=== PATIENT | female | born 1955 | race Caucasian/White ===

== ENCOUNTER 2020-02-17 13:46 | Outpatient (REF) | payer MEDICAID, SELFPAY ==
--- NOTE | 2020-02-17 16:38 | MHC.AU.MED ---
Medical Clearance for Hearing Instrumentation Date: 02/17/20 Patient Name: Lizett Sapp Date of : 1955 Dear Tam Griggs MD , We have seen your patient on 02/17/20 and have determined that they are a candidate for amplification (See accompanying report). Specifically, they would benefit from: Hearing aid use in both ears There is a statute that addresses Medical Evaluation Requirements prior to fitting a patient with a hearing aid. According to [place] statute 265 CMR:6.03(1), (a) General. Except as provided in 265 CMR 6.03(1)(b), a fire extinguisher installer shall not sell a hearing aid unless the prospective user has presented to the fire extinguisher installer a written statement signed by a licensed physician that states that the patient's hearing loss has been medically evaluated and the patient may be considered a candidate for a hearing aid. The medical evaluation must have taken place within the preceding six months. Please note: Due to the [place] Statute referenced above, we cannot accept a signature other than that of a licensed physician. [employer] and PA signatures cannot be accepted. I am in agreement with the above recommendation. There is no medical contraindication for hearing instrumentation. Physician Signature Date Physician Name (Printed)
--- NOTE | 2020-02-17 16:39 | MHC.AU.P13 ---
Adult Audiological Evaluation Date of Visit: 02/17/20 Reason for Appointment: Decreased hearing. She notes that she doesn't hear well and has to turn the volume on her TV and telephone up high. Does patient feel they have a hearing loss?: Yes If Yes, Which Ear?: Both Ears When Was Hearing Difficulty First Noticed?: Many years ago Has hearing been tested previously?: Yes Previous Hearing Test Results: Patient notes that she had her hearing tested many years ago and was diagnosed with a hearing loss. Hearing Handicap Inventory HHIE SCORE: 18 Based on HHIE score, patient has: Mild to moderate perceived hearing handicap Ear History: Recent Ear Pain: Both Ears Bothersome Tinnitus/Ringing/Noises in Ears: Both Ears Medical History: Medical History:Dizziness or Unsteadiness, High Blood Pressure, Vascular Problems Medical History: Patient notes that she has been having significant irritation, itching, and pain in both ears. Carpel tunnel, arthritis Allergies: Penicillin, Lobster Otoscopy: Right Ear: White debris and irritation of canal, possible otitis externa Left Ear: White debris and irritation of canal, possible otitis externa Tympanometry: Right Ear: Normal Middle Ear System (Type A) Left Ear: Normal Middle Ear System (Type A) Hearing Evaluation: Transducer(s) Used: Insert Earphones, Bone Conduction Method: Conventional Audiometry Stimuli Used: Pure Tones Right Ear: Description of Hearing: Mild sensorineural hearing loss from 250-2000 Hz, sloping to a moderate sensorineural hearing loss at 4000 Hz, and a moderately severe hearing loss at 3251-5938 Hz. Left Ear: Description of Hearing: Mild sensorineural hearing loss from 250-500 Hz, rising to normal hearing 7171-6393 Hz, sloping to a mild sensorineural hearing loss at 2000 Hz, a moderate sensorineural hearing loss at 4000 Hz, a moderately severe hearing loss at 6000 Hz, and a severe hearing loss at 8000 Hz. Speech Recognition Threshold (SRT): Method Used: Recorded Lists Stimuli Used: Spondee Words Right Ear: 40 dBHL Left Ear: 40 dBHL Word Discrimination: Method: Recorded Lists Word Lists Used: Lista Bisil?bica (Polish) Right Ear: 100% at 80 dBHL Left Ear: 100% at 80 dBHL Recommendations: Recommendations: Audiological re-evaluation in one year. Trial with amplification is recommended. Medical clearance from a physician is required before fitting. Hearing Aid Fitting will be scheduled when all materials arrive. Recommendations (Other): Follow-up with PCP regarding possible otitis externa LAURA. Diagnosis: Primary Diagnosis: H90.3 Bilateral Sensorineural Hearing Loss Services Performed: Services Performed: Comprehensive Audiological Evaluation (CPT 54009) Tympanometry (CPT 68555) Signature: Provider: Kimberly Prasad, NANCI-A
== END 2020-02-17 13:47 | disposition home or self-care (01) ==
LOC: HO.SH 13:46
PROVIDERS: Visit Provider Internal Medicine
DX: H90.3 Sensorineural hearing loss, bilateral (principal)
CPT/HCPCS: 92557; 92567; 92591

== ENCOUNTER 2020-03-20 15:27 | Outpatient (REF) | payer MEDICAID, SELFPAY | END 2020-03-20 15:28 | disposition home or self-care (01) | LOC: HO.HAP 15:27 | PROVIDERS: PCP Internal Medicine; Referring Provider Internal Medicine; Visit Provider Internal Medicine | DX: H90.3 Sensorineural hearing loss, bilateral (principal) | CPT/HCPCS: V5011; V5020; V5160; V5261 ==

== ENCOUNTER 2020-04-04 11:20 | Outpatient (REF) | payer MEDICAID, SELFPAY | END 2020-04-04 11:21 | disposition home or self-care (01) | LOC: HO.HAP 11:20 | PROVIDERS: PCP Internal Medicine; Referring Provider Internal Medicine; Visit Provider Internal Medicine | DX: Z13.89 Encounter for screening for other disorder (principal) | CPT/HCPCS: 92700 ==

== ENCOUNTER 2020-05-08 15:21 | Outpatient (REF) | payer MEDICAID, SELFPAY | END 2020-05-08 15:22 | disposition home or self-care (01) | LOC: HO.HAP 15:21 | PROVIDERS: Visit Provider Internal Medicine | DX: Z13.89 Encounter for screening for other disorder (principal) ==

== ENCOUNTER → 2020-06-08 13:26 | Outpatient (BNVA) | payer MEDICAID, SELFPAY | PROVIDERS: PCP Internal Medicine; Referring Provider Internal Medicine; Visit Provider Student in an Organized Health Care Education/Training Program | DX: M89.49 Other hypertrophic osteoarthropathy, multiple sites (principal) | CPT/HCPCS: 99212 ==

== ENCOUNTER 2020-06-22 13:51 | Outpatient (REF) | payer MEDICAID, SELFPAY ==
--- NOTE | ~2020-06-22 | MM_ITS ---
EXAMINATION: MM SCREENING DIGITAL BREAST TOMOSYNTHESIS, BILATERAL CLINICAL INFORMATION: Screening. Asymptomatic. The lifetime risk of breast cancer based on the Tyrer-Cuzick Model is 5%. COMPARISON: Mammography: 06/17/2019, 06/21/2018, 03/04/2016 TECHNIQUE: Digital breast tomosynthesis is performed in both the craniocaudal and mediolateral oblique views along with computer-aided detection (CAD). Synthesized 2D images are generated from the tomosynthesis. FINDINGS: There are scattered areas of fibroglandular density (ACR BI-RADS breast composition Category b). There are no significant masses, abnormal calcifications, or other abnormalities. The axilla and skin contours are unremarkable. MM/MM tomosynthesis screening BI IMPRESSION: No mammographic evidence of malignancy. ASSESSMENT: BI-RADS 1: Negative RECOMMENDATION: Routine annual mammography screening. This patient's information was entered into a reminder system with a target due date for their next mammogram.
== END 2020-06-22 13:52 | disposition home or self-care (01) ==
LOC: HO.MAMMO 13:51
PROVIDERS: Visit Provider Internal Medicine
DX: Z12.31 Encounter for screening mammogram for malignant neoplasm of breast (principal)
CPT/HCPCS: 77063; 77067

== ENCOUNTER 2020-07-26 09:08 | Outpatient (REF) | payer MEDICAID, SELFPAY ==
--- NOTE | ~2020-07-26 | US_ITS ---
EXAMINATION: US ABDOMEN COMPLETE CLINICAL INFORMATION: Right upper quadrant pain. Evaluate for gallstones.. COMPARISON: Previous abdominal ultrasound July 2014 TECHNIQUE: Real-time imaging of the abdominal viscera. FINDINGS: PANCREAS: The head of the pancreas is normal-appearing. The body and tail are not well visualized. ABDOMINAL AORTA: The proximal, mid, and distal segments are normal in caliber. INFERIOR VENA CAVA: Visualized portions are normal. LIVER: Liver echotexture is increased. The liver is enlarged, right lobe measuring 22 cm in length. The liver is normal in contour. No focal hepatic lesion. There is no intrahepatic biliary duct dilatation seen. GALLBLADDER: Gallstones in the gallbladder. The gallbladder is normal in size. The gallbladder wall is normal. There is no pericholecystic fluid. COMMON BILE DUCT: Normal in caliber measuring 0.3 cm in diameter. RIGHT KIDNEY: Normal. No hydronephrosis. No renal calculi or focal parenchymal lesions. The kidney measures 12.8 cm in maximum dimension. LEFT KIDNEY: Normal. No hydronephrosis. No renal calculi or focal parenchymal lesions. The kidney measures 10 cm in maximum dimension. SPLEEN: Normal. The spleen measures 8 cm in maximum dimension. FREE FLUID: None. US/US abdomen complete IMPRESSION: Gallstones. Slightly enlarged echogenic liver probably representing fatty infiltration. Limited visualization of the pancreas.
== END 2020-07-26 09:09 | disposition home or self-care (01) ==
LOC: HO.US 09:08
PROVIDERS: Visit Provider Internal Medicine
DX: R10.11 Right upper quadrant pain (principal); K80.20 Calculus of gallbladder without cholecystitis without obstruction
CPT/HCPCS: 76700; 99202

== ENCOUNTER 2020-08-03 13:13 | Outpatient (REF) | payer MEDICAID, SELFPAY ==
[2020-08-03 14:50] LABS: Alanine Aminotransferase 37 U/L (0-31); Albumin Level 4.2 g/dL (3.5-5.0); Alkaline Phosphatase 74 U/L (39-117); Aspartate Amino Transferase 30 U/L (5-31); Bilirubin Direct 0.6 mg/dL (0.0-0.5); Bilirubin Total 1.2 mg/dL (0.0-1.0); Total Protein 6.9 g/dL (6.5-8.0)
== END 2020-08-03 13:14 | disposition home or self-care (01) ==
LOC: HO.LAB 13:13
PROVIDERS: PCP Internal Medicine; Visit Provider Surgery
DX: K80.20 Calculus of gallbladder without cholecystitis without obstruction (principal)
CPT/HCPCS: 36415; 80076

== ENCOUNTER 2021-01-12 16:57 | Emergency (ER) | payer MEDICAID, SELFPAY ==
[2021-01-12 17:44] VITALS: BP 131/105; PULSE 70; RESP 16; TEMP 37; O2SAT 98; BMI 34.7
[2021-01-12 17:51] LABS: Glucose, Whole Blood 98 mg/dL (60-115)
== END 2021-01-12 19:39 | disposition left against medical advice (07) ==
PROVIDERS: Emergency Provider Emergency Medicine; PCP Internal Medicine
DX: M54.5 Low back pain (principal)
CPT/HCPCS: 82947; 99282

== ENCOUNTER 2021-01-26 12:09 | Emergency (ER) | payer OTHER, MEDICAID, SELFPAY ==
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
[2021-01-26 12:12] VITALS: BP 118/56; PULSE 72; RESP 20; TEMP 36; O2SAT 98; BMI 31.7
[2021-01-26] MEDS: Ketorolac Tromethamine 15 MG/ML VIAL IM (13:07)
[2021-01-26] MEDS: Cyclobenzaprine HCl 5 MG TABLET PO (13:07)
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
[2021-01-26 14:18] VITALS: RESP 18
== END 2021-01-26 16:07 | disposition home or self-care (01) ==
PROVIDERS: Emergency Provider Emergency Medicine; PCP Internal Medicine
DX: S06.0X0A Concussion without loss of consciousness, initial encounter (principal); M75.101 Unspecified rotator cuff tear or rupture of right shoulder, not specified as traumatic; J01.00 Acute maxillary sinusitis, unspecified; M54.5 Low back pain; M54.2 Cervicalgia; M54.6 Pain in thoracic spine; V43.52XA Car driver injured in collision with other type car in traffic accident, initial encounter; Y93.9 Activity, unspecified; Y92.410 Unspecified street and highway as the place of occurrence of the external cause; Y99.9 Unspecified external cause status; Z79.899 Other long term (current) drug therapy
CPT/HCPCS: 70450; 72125; 72128; 72131; 73030; 96372; 99284; J1885

== ENCOUNTER 2021-06-14 13:57 | Outpatient (REF) | payer MEDICAID, SELFPAY ==
--- NOTE | ~2021-06-14 | XR_ITS ---
EXAMINATION: XR KNEE, RIGHT CLINICAL INFORMATION: Pain right knee. COMPARISON: None TECHNIQUE: Four views of the right knee. FINDINGS: There is mild loss of tricompartment joint space without bony erosive changes or loose body. No abnormal joint effusion. No acute fracture or dislocation. XR/XR knee RT 3V IMPRESSION: Early mild degenerative changes in the tricompartment. No acute fracture or dislocation or joint effusion.
[2021-06-14 16:32] LABS: Alanine Aminotransferase 36 U/L (0-31); Albumin Level 4.3 g/dL (3.5-5.0); Alkaline Phosphatase 71 U/L (39-117); Anion Gap 10 (12-20); Aspartate Amino Transferase 36 U/L (5-31); Bilirubin Total 1.7 mg/dL (0.0-1.0); Blood Urea Nitrogen 14 mg/dL (9-16); Calcium 10.8 mg/dL (8.4-10.2); Carbon Dioxide 32 mmol/L (22-29); Chloride 106 mmol/L (96-108); Estimated Glomerular Filt Rate > 60; Glucose Random 69 mg/dL (60-115); Potassium 4.6 mmol/L (3.3-5.1); Sodium 143 mmol/L (135-145); Total Protein 7.3 g/dL (6.5-8.0)
== END 2021-06-14 13:58 | disposition home or self-care (01) ==
LOC: HO.XRAY 13:57
PROVIDERS: PCP Internal Medicine; Visit Provider Nurse Practitioner Family
DX: M25.561 Pain in right knee (principal); M89.49 Other hypertrophic osteoarthropathy, multiple sites
CPT/HCPCS: 36415; 73562; 80053; 99212

== ENCOUNTER 2021-07-02 10:58 | Emergency (ER) | payer MEDICAID, SELFPAY ==
--- NOTE | ~2021-07-02 | CT_ITS ---
EXAMINATION: CT ANGIOGRAM OF THE CHEST WITH AND WITHOUT CONTRAST (CT PULMONARY ANGIOGRAM FOR PE) CLINICAL INFORMATION: Elevated d-dimer. Recent chest surgery. COMPARISON: Chest x-ray earlier today. Chest CT 09/15/2015. TECHNIQUE: Prior to contrast administration, noncontrast localization images were obtained. Subsequently, multidetector volumetric imaging was performed from the thoracic inlet to below the diaphragms following the administration of 80 mL Omnipaque 350 intravenous contrast. No contrast reaction reported Sagittal, coronal, and MIP oblique sagittal reformatted images were obtained on the CT workstation, uploaded to PACS, and reviewed. This CT examination was performed using dose optimization techniques as appropriate, variously including the following: *Automated exposure control *Adjustment of mA and/or kV according to patient size (this includes techniques or standardized protocols for targeted exams where dose is matched to indication/reason for exam; i.e. extremities or head) *Use of iterative reconstruction technique FINDINGS: QUALITY OF STUDY/CONTRAST BOLUS: Satisfactory. PULMONARY ARTERIES: No central or segmental pulmonary emboli. THORACIC AORTA: No aneurysm or dissection. LUN mm left lower lobe nodule image [id number]. This was present in 2016, unchanged and consistent with a benign etiology for which no further imaging follow-up is recommended There is curvilinear likely atelectasis in the lingula. This is new since the prior CT scan in 2016. There is some posterior dependent atelectasis in the lower lobes. PLEURA: No pleural effusion or pneumothorax. MEDIASTINUM: Small hiatal hernia. Normal heart size. No pericardial effusion. No hilar or mediastinal lymphadenopathy. No evidence of septal bowing or right heart strain. CHEST WALL/AXILLA: No axillary or internal mammary lymphadenopathy. There is a well-circumscribed fluid density structure in the midline at the level of the lower neck, possibly a sebaceous cyst or other subcutaneous lesion. OSSEOUS STRUCTURES: No acute or suspicious osseous abnormality. UPPER ABDOMEN: Gallstones. No adrenal mass. No reflux of contrast into the hepatic veins to suggest elevated right heart pressures. CT/CT angio chest PE protocol IMPRESSION: No pulmonary embolus seen. VTE: negative
--- NOTE | ~2021-07-02 | XR_ITS ---
EXAMINATION: XR CHEST CLINICAL INFORMATION: Chest pain. COMPARISON: None TECHNIQUE: Frontal view of the chest was obtained. FINDINGS: The lungs are well-expanded with platelike atelectasis left midlung. Rest of the lungs are clear. Heart size and pulmonary vascularity is normal. There is mild spondylosis of dorsal spine. No lytic process seen. XR/XR chest 1V IMPRESSION: Platelike like atelectasis left midlung.
[2021-07-02 11:18] VITALS: BP 134/68; BP 147/71; PULSE 76; RESP 18; TEMP 36.7; O2SAT 100; BMI 30.9
--- NOTE | 2021-07-02 11:41 | ECG_ITS ---
Test Reason : chest pain Blood Pressure : / mmHG Vent. Rate : 077 BPM Atrial Rate : 077 BPM P-R Int : 188 ms QRS Dur : 076 ms QT Int : 396 ms P-R-T Axes : 001 -06 008 degrees QTc Int : 448 ms Normal sinus rhythm Poor R wave progression Nonspecific T wave changes Abnormal ECG When compared with ECG of 31-MAY-2015 17:11, Nonspecific T wave abnormality now evident in Anterior leads Referred By: Lauren Reich Electronically Signed By:Siva Martinez
--- NOTE | 2021-07-02 11:48 | ED_ITS ---
HPI - Anxiety General Chief Complaint: Anxiety Stated Complaint: FEELS THROAT SWELLING FROM MD OFFICE Time Seen by Provider: 07/02/21 11:30 Source: patient Mode of arrival: ambulatory Limitations: no limitations History of Present Illness HPI narrative: [place] [facility] [place] has done well went to follow up PCP visit today was in waiting room and felt like she couldn't swallow since arriving here it has improved. MD complaint: anxiety Symptoms: dyspnea and chest pain (has had intermittent chest pain since surgery - told her surgeons stated it improved and did not return until the episode today) Severity: moderate Quality: improving (almost resolved) Place: other (waiting room of PCP office) History of similar episodes: No Provoking factors: none known Relieving factors: rest (time) Exacerbating factors: nothing Associated symptoms: chest pain, shortness of breath and other (difficulty swallowing that is resolving without any interventions felt like her throat was closing) Related Data Home Medications Medication Instructions Recorded Confirmed acetaminophen 650 mg 650 mg PO Q8H 06/08/20 07/26/20 tablet,extended release (Tylenol 8 Hour) aspirin 81 mg tablet,delayed 81 mg PO DAILY 06/08/20 07/26/20 release ezetimibe 10 mg tablet 10 mg PO DAILY 06/08/20 07/26/20 fluticasone propionate 50 1 spray INTRANASAL DAILY 06/08/20 07/26/20 mcg/actuation nasal spray,suspension gabapentin 300 mg capsule 300 mg PO BID 06/08/20 07/26/20 insulin lispro 100 unit/mL 1 sliding scale dose SUBCUT 06/08/20 07/26/20 subcutaneous solution (Humalog USEASDIRECTD U-100 Insulin) loratadine 10 mg tablet 10 mg PO DAILY 06/08/20 07/26/20 metformin 1,000 mg tablet 1,000 mg PO BID 06/08/20 07/26/20 metoprolol tartrate 50 mg tablet 50 mg PO BID 06/08/20 07/26/20 omega-3 fatty acids 1,000 mg 1,000 mg PO DAILY 06/08/20 07/26/20 capsule (Fish Oil Concentrate) omeprazole magnesium 20 mg 20 mg PO DAILY 06/08/20 07/26/20 tablet,delayed release (Prilosec OTC) rosuvastatin 40 mg tablet 40 mg PO DAILY 06/08/20 07/26/20 trazodone 50 mg tablet 50 mg PO BEDTIME PRN 06/08/20 07/26/20 valsartan 40 mg tablet (Diovan) 40 mg PO DAILY tab 06/08/20 07/26/20 albuterol sulfate 90 mcg/actuation 2 puff INHALATION Q6H PRN 07/26/20 07/26/20 aerosol inhaler sertraline 25 mg tablet 25 mg PO DAILY 07/26/20 07/26/20 dulaglutide 0.75 mg/0.5 mL 0.75 mg SUBCUT QWEEK 06/14/21 subcutaneous pen injector (Trulicity) Allergies Allergy/AdvReac Type Severity Reaction Status Date / Time latex [LATEX] Allergy Intermediate ITCHING Verified 07/02/21 11:18 penicillin V Allergy Unknown Unknown Verified 07/02/21 11:18 Penicillins Allergy Unknown UNKNOWN-CHILDHOOD Verified 07/02/21 11:18 ALLERGY LOBSTER Allergy Intermediate THROAT Uncoded 01/20/20 16:16 ITCHING Review of Systems Review of Systems: Constitutional : No Weight loss, No Fever, No Chills ENT/Mouth : No sore throat, No Rhinorrhea Eyes: No Eye Pain, No Swelling Cardiovascular : pos Chest Pain, pos SOB, no Dyspnea on Exertion, No Orthopnea, No Edema, No Palpitations Respiratory : No Cough, No Sputum Gastrointestinal : no Nausea, No Vomiting, No Diarrhea, No abdominal Pain, No Hematochezia, No Melena Genitourinary : No Dysuria, No Urinary Frequency Musculoskeletal : No joint pain, No Myalgias, No Joint Swelling Skin : No Skin Lesions, No rash Neuro : No Weakness, No Numbness, No Dizziness, No Headache Psych : pos Anxiety/Panic, No Depression Heme/Lymph: No Bruising, No Lymphadenopathy Endocrine : No Polyuria, No Polydipsia All other systems reviewed and are negative [facility] Past Medical History Attestation statement: The following information was validated with the patient. Medical History Asthma Diabetes Gallstones GERD (gastroesophageal reflux disease) HTN (hypertension) Hyperlipidemia Obesity Osteoarthritis Primary osteoarthritis involving multiple joints Vitamin D deficiency Surgical History H/O arthroscopic knee surgery Hx of section Family History Family History Father HTN (hypertension) Diabetes Mother HTN (hypertension) Diabetes Asthma Social History Social History Alcohol intake: current Patient Tobacco Use Status: Never used Tobacco Advance Directives: No Advance Directives Information Provided: No Physical Exam Vital Signs: Vital Signs: Last Vital Signs Temp 98.8 F 07/02/21 12:07 Pulse 78 07/02/21 16:24 Resp 16 07/02/21 16:24 BP 121/68 07/02/21 16:24 Pulse Ox 100 07/02/21 16:24 BMI result Body Mass Index 30.9 Appearance: Alert. Oriented X3. No acute distress. Anxious, tearful Eyes: Pupils equal, round and reactive to light. ENT: Pharynx normal. no signs of swelling Neck: Normal inspection. Neck supple. no outward swelling, incisions are c/d/i CVS: Normal heart rate and rhythm. Pulses normal. Respiratory: No respiratory distress. Breath sounds normal. Abdomen: Soft and nontender. Skin: Skin warm and dry. Normal skin color. Normal skin turgor. Extremities: No lower extremity edema. No calf ttp UE - distal NV intact Neuro: Oriented X 3. No motor deficit. No sensory deficit. Course Course Course Narrative: ddimer elevated PE study ordered CT ordered pending signed out to Dr. Aggarwal [facility] - Anxiety MDM Narrative Medical decision making narrative: 66 yo female with [place] [facility] [place] distal NV intact UE - she notes she was at follow up with PCP today and felt like her throat was closing - this is resolving without any interventions she is unsure if it is anxiety her only other complaint is intermittent chest pain she has had since surgery - at this time will give PO ativan, troponin, EKG, ddimer - her neck has no swelling and her throat has no signs of mass/swelling - pharynx is clear. Dispo per resu lts and findings. Lab Data Result diagrams: 07/02/21 13:55 07/02/21 12:23 Labs: Lab Results 07/02/21 07/02/21 07/02/21 Range/Units 11:56 11:56 11:56 WBC TNP RBC TNP Hgb TNP Hct TNP MCV TNP MCH TNP MCHC TNP RDW TNP Plt Count Not Reportable MPV Not Reportable Immature Gran % (Auto) Cancelled Neut % (Auto) Cancelled Lymph % (Auto) Cancelled [place] % (Auto) Cancelled Eos % (Auto) Cancelled Baso % (Auto) Cancelled Lymph # (Auto) Cancelled [place] # (Auto) Cancelled Eos # (Auto) Cancelled Baso # (Auto) Cancelled Abs Immat Gran (auto) Cancelled Absolute Neuts (auto) Cancelled Absolute Nucleated RBC Not Reportable Nucleated RBC % (auto) Not Reportable Neutrophils % (Manual) Not Reportable Abs Neuts (Manual) Not Reportable Platelet Estimate Not Reportable Plt Morphology Comment Not Reportable RBC Morphology Not Reportable D-Dimer High Sensitivty 755 NG/ML Sodium (135-145) mmol/L Potassium (3.3-5.1) mmol/L Chloride (96-108) mmol/L Carbon Dioxide (22-29) mmol/L Anion Gap (12-20) BUN (9-16) mg/dL Creatinine (0.5-1.4) mg/dL Estim Creat Clear Calc Estimated GFR Random Glucose (60-115) mg/dL Calcium (8.4-10.2) mg/dL Magnesium (1.6-2.6) mg/dL Troponin I High Sens < 3.5 (<3.5-17.0) ng/L 07/02/21 07/02/21 07/02/21 Range/Units 12:23 12:43 13:55 WBC 9.9 10.2 RBC 3.64 L 3.75 L Hgb 10.8 L 11.1 L Hct 32.3 L 33.3 L MCV 88.7 88.8 MCH 29.7 29.6 MCHC 33.4 33.3 RDW 12.2 12.2 Plt Count 387 391 MPV 10.1 9.6 Immature Gran % (Auto) 0.6 H 0.6 H Neut % (Auto) 66.9 67.7 Lymph % (Auto) 24.1 23.2 [place] % (Auto) 6.4 6.7 Eos % (Auto) 1.6 1.5 Baso % (Auto) 0.4 0.3 Lymph # (Auto) 2.4 2.4 [place] # (Auto) 0.6 0.7 Eos # (Auto) 0.2 0.2 Baso # (Auto) 0.0 0.0 Abs Immat Gran (auto) 0.06 H 0.06 H Absolute Neuts (auto) 6.6 6.9 Absolute Nucleated RBC 0.000 0.000 Nucleated RBC % (auto) 0.0 0.0 Neutrophils % (Manual) Abs Neuts (Manual) Platelet Estimate Plt Morphology Comment RBC Morphology D-Dimer High Sensitivty NG/ML Sodium 140 (135-145) mmol/L Potassium 3.8 (3.3-5.1) mmol/L Chloride 105 (96-108) mmol/L Carbon Dioxide 26 (22-29) mmol/L Anion Gap 13 (12-20) BUN 13 (9-16) mg/dL Creatinine 0.63 (0.5-1.4) mg/dL Estim Creat Clear Calc 73.2 Estimated GFR > 60 Random Glucose 138 H (60-115) mg/dL Calcium 10.2 (8.4-10.2) mg/dL Magnesium 1.3 L* (1.6-2.6) mg/dL Troponin I High Sens (<3.5-17.0) ng/L ECG Data Attestation: I personally reviewed and interpreted this ECG as follows: ECG interpretation date: 07/02/21 ECG interpretation time: 12:11 Interpretation: Rate: 77 Rhythm: NSR [place]: left Normal P waves. Normal ARIANNA. Normal QRS complex. ST T wave : normal no ÁNGEL, nonspecific V1-V3 qTC: normal prior studies: no acute ischemia no sig change 2014 The study has been interpreted contemporaneously by me. . Discharge Plan Discharge Clinical Impression: Hypomagnesemia, Anxiety Chest pain Qualifiers: Chest pain type: precordial pain Qualified Code(s): R07.2 - Precordial pain Instructions: Chest Pain (ED), Hypomagnesemia (ED), Anxiety (ED) Prescriptions: No Action metoprolol tartrate 50 mg tablet 50 mg PO BID 0RF ezetimibe 10 mg tablet 10 mg PO DAILY 0RF valsartan [Diovan] 40 mg tablet 40 mg PO DAILY 0RF rosuvastatin 40 mg tablet 40 mg PO DAILY 0RF omega-3 fatty acids [Fish Oil Concentrate] 1,000 mg capsule 1,000 mg PO DAILY 0RF insulin lispro [Humalog U-100 Insulin] 100 unit/mL solution 1 sliding scale dose subcut USEASDIRECTD 0RF metformin 1,000 mg tablet 1,000 mg PO BID 0RF gabapentin 300 mg capsule 300 mg PO BID 0RF aspirin 81 mg tablet,delayed release (DR/EC) 81 mg PO DAILY 0RF trazodone 50 mg tablet 50 mg PO BEDTIME PRN0RF loratadine 10 mg tablet 10 mg PO DAILY 0RF fluticasone propionate 50 mcg/actuation spray,suspension 1 spray intranasal DAILY 0RF Rx Instructions: administer into each nostril omeprazole magnesium [Prilosec OTC] 20 mg tablet,delayed release (DR/EC) 20 mg PO DAILY 0RF acetaminophen [Tylenol 8 Hour] 650 mg tablet extended release 650 mg PO Q8H 0RF sertraline 25 mg tablet 25 mg PO DAILY 0RF albuterol sulfate 90 mcg/actuation HFA aerosol inhaler 2 puff inhalation Q6H PRN0RF Trulicity 0.75 mg/0.5 mL pen injector 0.75 mg subcut QWEEK 0RF
[2021-07-02] MEDS: LORazepam 0.5 MG TABLET PO (12:02)
[2021-07-02 12:07] VITALS: BP 229/186; PULSE 80; RESP 22; TEMP 37.1; O2SAT 100
[2021-07-02 12:15] VITALS: BP 125/69; PULSE 75
[2021-07-02 12:16] LABS: D Dimer High Sensitivity 755 NG/ML
[2021-07-02 12:28] LABS: Troponin-I High Sensitivity < 3.5 ng/L (<3.5-17.0)
[2021-07-02 12:47] LABS: MANUAL DIFF FLAG NO
[2021-07-02 12:48] LABS: Basophils Percent Auto 0.4 % (0-2); Eosinophils Absolute Auto 0.2 X10*3/uL (0.0-0.4); Eosinophils Percent Auto 1.6 % (0-4); Hematocrit 32.3 % (37.0-47.0); Hemoglobin 10.8 g/dl (12.0-16.0); Imm Gran Abs Auto 0.06 X10*3/uL (0.00-0.03); Imm Gran Pct Auto 0.6 % (0.0-0.4); Lymphocytes Absolute Auto 2.4 X10*3/uL (1.2-4.9); Lymphocytes Percent Auto 24.1 % (20-40); Mean Corpuscular HGB Conc 33.4 g/dl (31.0-35.0); Mean Corpuscular Hemoglobin 29.7 pg (27.0-33.0); Mean Corpuscular Volume 88.7 fL (80.0-98.0); Mean Platelet Volume 10.1 fL (9.4-12.3); Monocytes Absolute Auto 0.6 X10*3/uL (0.1-1.2); Monocytes Percent Auto 6.4 % (2-11); Neutrophils Absolute Auto 6.6 x10*3/uL (2.0-8.3); Neutrophils Percent Auto 66.9 % (45-73); Platelet Count 387 X10*3/uL (160-400); Red Blood Count 3.64 X10*6/uL (4.20-5.50); Red Cell Distribution Width 12.2 % (11.0-16.0); White Blood Count 9.9 X10*3/uL (4.8-10.8)
[2021-07-02 12:57] LABS: Anion Gap 13 (12-20); Blood Urea Nitrogen 13 mg/dL (9-16); Calcium 10.2 mg/dL (8.4-10.2); Carbon Dioxide 26 mmol/L (22-29); Chloride 105 mmol/L (96-108); Creatinine Clr Calc Pharmacy 73.2; Estimated Glomerular Filt Rate > 60; Glucose Random 138 mg/dL (60-115); Magnesium 1.3 mg/dL (1.6-2.6); Potassium 3.8 mmol/L (3.3-5.1); Sodium 140 mmol/L (135-145)
[2021-07-02] MEDS: Magnesium Sulfate/H2O 2 GM/50 ML PIGGYBACK IV (13:15)
[2021-07-02 13:59] LABS: MANUAL DIFF FLAG NO
[2021-07-02 14:02] LABS: Basophils Percent Auto 0.3 % (0-2); Eosinophils Absolute Auto 0.2 X10*3/uL (0.0-0.4); Eosinophils Percent Auto 1.5 % (0-4); Hematocrit 33.3 % (37.0-47.0); Hemoglobin 11.1 g/dl (12.0-16.0); Imm Gran Abs Auto 0.06 X10*3/uL (0.00-0.03); Imm Gran Pct Auto 0.6 % (0.0-0.4); Lymphocytes Absolute Auto 2.4 X10*3/uL (1.2-4.9); Lymphocytes Percent Auto 23.2 % (20-40); Mean Corpuscular HGB Conc 33.3 g/dl (31.0-35.0); Mean Corpuscular Hemoglobin 29.6 pg (27.0-33.0); Mean Corpuscular Volume 88.8 fL (80.0-98.0); Mean Platelet Volume 9.6 fL (9.4-12.3); Monocytes Absolute Auto 0.7 X10*3/uL (0.1-1.2); Monocytes Percent Auto 6.7 % (2-11); Neutrophils Absolute Auto 6.9 x10*3/uL (2.0-8.3); Neutrophils Percent Auto 67.7 % (45-73); Platelet Count 391 X10*3/uL (160-400); Red Blood Count 3.75 X10*6/uL (4.20-5.50); Red Cell Distribution Width 12.2 % (11.0-16.0); White Blood Count 10.2 X10*3/uL (4.8-10.8)
[2021-07-02 16:24] VITALS: BP 121/68; PULSE 78; RESP 16; O2SAT 100
--- NOTE | 2021-07-02 16:27 | PC.NURSE ---
Pt to CTA now. Delay in completion of test due to requirement of 20g IV and pt needing to use BR beforehand.
[2021-07-02] MEDS: iohexoL 350 MG/ML 100 ML INFUS..BTL IV (16:55)
[2021-07-02 17:58] VITALS: BP 135/68; PULSE 77; RESP 15; TEMP 36.8; O2SAT 100
[2021-07-02 18:07] LABS: Glucose, Whole Blood 84 mg/dL (60-115)
[2021-07-02] MEDS: oxyCODONE HCl Immed Release 5 MG TABLET 10 MG PO (18:13)
--- NOTE | 2021-07-02 19:03 | PC.NURSE ---
Pt D/C from ER with instructions. Pt states understanding and al further questions answered to pt satisfaction. AlL IV's removed prior to D/C.
== END 2021-07-02 19:04 | disposition home or self-care (01) ==
PROVIDERS: Emergency Provider Emergency Medicine; PCP Internal Medicine
DX: R07.2 Precordial pain (principal); E83.42 Hypomagnesemia; F41.9 Anxiety disorder, unspecified; E11.9 Type 2 diabetes mellitus without complications; I10 Essential (primary) hypertension; E78.5 Hyperlipidemia, unspecified; Z79.4 Long term (current) use of insulin; Z79.82 Long term (current) use of aspirin; Z79.02 Long term (current) use of antithrombotics/antiplatelets
CPT/HCPCS: 36415; 71045; 71275; 80048; 82947; 83735; 84484; 85007; 85025; 85027; 85379; 93005; 96365; 96366; 99284; J3475; Q9967

== ENCOUNTER → 2021-07-13 13:32 | Outpatient (BNVA) | payer MEDICAID, SELFPAY | PROVIDERS: PCP Internal Medicine; Visit Provider Physician Assistant | DX: M17.11 Unilateral primary osteoarthritis, right knee (principal) | CPT/HCPCS: 99202 ==

== ENCOUNTER 2021-09-10 15:29 | Outpatient (REF) | payer MEDICAID, SELFPAY ==
--- NOTE | ~2021-09-10 | MM_ITS ---
EXAMINATION: MM SCREENING DIGITAL BREAST TOMOSYNTHESIS, BILATERAL CLINICAL INFORMATION: Screening. Asymptomatic. The lifetime risk of breast cancer based on the Tyrer-Cuzick Model is 5%. COMPARISON: Mammography: 06/22/2020, 06/17/2019, 06/11/2018 TECHNIQUE: Digital breast tomosynthesis is performed in both the craniocaudal and mediolateral oblique views along with computer-aided detection (CAD). Synthesized 2D images are generated from the tomosynthesis. FINDINGS: There are scattered areas of fibroglandular density (ACR BI-RADS breast composition Category b). There are no significant masses, abnormal calcifications, or other abnormalities. Parenchymal pattern is similar to prior studies. No architectural abnormality. No significant changes. MM/MM tomosynthesis screening BI IMPRESSION: No mammographic evidence of malignancy. ASSESSMENT: BI-RADS 1: Negative RECOMMENDATION: Routine annual mammography screening. This patient's information was entered into a reminder system with a target due date for their next mammogram.
== END 2021-09-10 15:30 | disposition home or self-care (01) ==
LOC: HO.MAMMO 15:29
PROVIDERS: PCP Internal Medicine; Visit Provider Internal Medicine
DX: Z12.31 Encounter for screening mammogram for malignant neoplasm of breast (principal)
CPT/HCPCS: 77063; 77067

== ENCOUNTER → 2021-12-19 09:09 | Outpatient (BNVA) | payer MEDICAID, SELFPAY | PROVIDERS: PCP Internal Medicine; Visit Provider Nurse Practitioner Family | DX: M89.49 Other hypertrophic osteoarthropathy, multiple sites (principal); M25.561 Pain in right knee; M54.2 Cervicalgia | CPT/HCPCS: 99212 ==

== ENCOUNTER → 2022-07-22 13:44 | Outpatient (BNVA) | payer MEDICARE, MEDICAID, SELFPAY | PROVIDERS: PCP Internal Medicine; Visit Provider Nurse Practitioner Family | DX: M19.011 Primary osteoarthritis, right shoulder (principal); M54.2 Cervicalgia; M89.49 Other hypertrophic osteoarthropathy, multiple sites | CPT/HCPCS: 99212 ==

== ENCOUNTER 2022-11-04 11:57 | Outpatient (REF) | payer MEDICARE, MEDICAID, SELFPAY ==
--- NOTE | ~2022-11-04 | MM_ITS ---
EXAMINATION: MM SCREENING DIGITAL BREAST TOMOSYNTHESIS, BILATERAL CLINICAL INFORMATION: Screening. Asymptomatic. The lifetime risk of breast cancer based on the Tyrer-Cuzick Model is 3.7%. COMPARISON: Mammography: This study is compared with the prior mammograms dating back to 2019. TECHNIQUE: Digital breast tomosynthesis is performed in both the craniocaudal and mediolateral oblique views along with computer-aided detection (CAD). Synthesized 2D images are generated from the tomosynthesis. FINDINGS: There are scattered areas of fibroglandular density (ACR BI-RADS breast composition Category b). There are no significant masses, abnormal calcifications, or other abnormalities. MM/MM tomosynthesis screening BI IMPRESSION: No mammographic evidence of malignancy. ASSESSMENT: BI-RADS BI-RADS 1 - Negative RECOMMENDATION: Routine annual mammography screening. 1 year F/U This patient's information was entered into a reminder system with a target due date for their next mammogram.
== END 2022-11-04 11:58 | disposition home or self-care (01) ==
LOC: HO.MAMMO 11:57
PROVIDERS: PCP Internal Medicine; Visit Provider Internal Medicine
DX: Z12.31 Encounter for screening mammogram for malignant neoplasm of breast (principal)
CPT/HCPCS: 77063; 77067

== ENCOUNTER → 2022-11-04 12:00 | Outpatient (BNV) | payer MEDICARE, MEDICAID, SELFPAY | PROVIDERS: PCP Internal Medicine; Visit Provider Radiology Diagnostic Radiology | DX: Z12.31 Encounter for screening mammogram for malignant neoplasm of breast (principal) | CPT/HCPCS: 77063; 77067 ==

== ENCOUNTER 2023-03-10 06:03 | Day surgery (SDC) | payer MEDICARE, MEDICAID, SELFPAY ==
[2023-03-06 16:45] VITALS: BMI 32.8
--- NOTE | 2023-03-07 07:40 | MHC.SHP ---
Pre-Procedural Eval Section A Date of Service: 03/07/23 The patient is an INPATIENT: No Changes since office visit: No Cold of Flu in the past 2 weeks, No New Medical Problems, No Changes in Medication and No Patient answered all questions The History & Physical has been completed within 30 days and I have reviewed it.: Yes Section B Chief Complaint: Age-related nuclear cataract, right eye Allergies: Allergies Allergy/AdvReac Type Severity Reaction Status Date / Time latex [LATEX] Allergy Intermediate ITCHING Verified 07/22/22 14:40 Penicillins Allergy Unknown UNKNOWN-CHILDHOOD Verified 07/22/22 14:40 ALLERGY LOBSTER Allergy Intermediate THROAT Uncoded 07/22/22 14:40 ITCHING Plan Diagnosis/Plan: Unchanged I have reviewed the history and physical and performed a pertinent physical examination on my patient. No changes have occurred unless specified. Time Spent With Patient Time: Total time managing care of this patient today ____ minutes.
--- NOTE | 2023-03-07 09:28 | P.CONAN_ITS ---
Documented by User: Dee Dee Stone NP 03/07/23 09:29 HPI - Anesthesia Eval Consult details Narrative: 68yo F for Right Cataract Extraction IOL Insertion Medically cleared No previous cataract on record Anesthesia Pre-Procedure Meds Is the patient on any of the following meds?: Dulaglutide (Trulicity) PMFSH Active Problems Active Problems: All Active Problems (Updated 03/06/23 @ 16:23 by Yesenia Dooley RN) Osteoarthritis of right shoulder (Acute) Osteoarthritis of right knee (Acute) Gallstones (Acute) Primary osteoarthritis involving multiple joints (Acute) Past Medical History Medical History Cataract Gallstones Primary osteoarthritis involving multiple joints GERD (gastroesophageal reflux disease) Obesity Asthma Vitamin D deficiency Osteoarthritis Hyperlipidemia Diabetes HTN (hypertension) Family History Family History Father HTN (hypertension) Diabetes Mother HTN (hypertension) Diabetes Asthma Surgical History Surgical History History of heart artery stent Hx of colonoscopy History of back surgery Cataract extraction status of left eye H/O arthroscopic knee surgery Hx of section Social History Social History Are you a primary career and guidance counselor to a significant other at home: No Do you presently have visiting nurse or other home services: No Alcohol intake: current Alcohol intake frequency: does not drink Patient Tobacco Use Status: Never used Tobacco Use of substances other than those prescribed or required for medical reasons: No Have you been hit, kicked, punched, or otherwise hurt by someone within the past year? If so, by whom?: No Are you DNR?: No Advance Directives: No Advance Directives Information Provided: Yes Advance Directives on File: No Meds Allergies Allergy/AdvReac Type Severity Reaction Status Date / Time latex [LATEX] Allergy Intermediate ITCHING Verified 03/10/23 06:53 Penicillins Allergy Unknown UNKNOWN-CHILDHOOD Verified 03/10/23 06:53 ALLERGY LOBSTER Allergy Intermediate THROAT Uncoded 07/22/22 14:40 ITCHING Home Medications Medication Instructions Recorded Confirmed Last Taken Type acetaminophen 650 mg 650 mg PO Q8H 06/08/20 03/05/23 Unknown History tablet,extended release (Tylenol 8 Hour) aspirin 81 mg tablet,delayed 81 mg PO DAILY 06/08/20 03/05/23 Unknown History release ezetimibe 10 mg tablet 10 mg PO DAILY 06/08/20 03/05/23 Unknown History fluticasone propionate 50 1 spray intranasal DAILY 06/08/20 03/05/23 03/10/23 05:30 History mcg/actuation nasal spray,suspension gabapentin 300 mg capsule 300 mg PO BID 06/08/20 03/05/23 03/10/23 05:30 History insulin lispro 100 unit/mL 1 sliding scale dose subcut 06/08/20 03/05/23 Unknown History subcutaneous solution (Humalog USEASDIRECTD U-100 Insulin) loratadine 10 mg tablet 10 mg PO DAILY 06/08/20 03/05/23 Unknown History metformin 1,000 mg tablet 1,000 mg PO BID 06/08/20 03/05/23 Unknown History metoprolol tartrate 50 mg tablet 50 mg PO BID 06/08/20 03/05/23 03/10/23 05:30 History omega-3 fatty acids 1,000 mg 1,000 mg PO DAILY 06/08/20 07/22/22 Unknown History capsule (Fish Oil Concentrate) omeprazole magnesium 20 mg 40 mg PO DAILY 06/08/20 03/05/23 03/10/23 05:30 History tablet,delayed release (Prilosec OTC) rosuvastatin 40 mg tablet 40 mg PO DAILY 06/08/20 03/05/23 Unknown History valsartan 40 mg tablet (Diovan) 40 mg PO DAILY 06/08/20 03/05/23 Unknown History albuterol sulfate 90 mcg/actuation 2 puff inhalation Q6H PRN 07/26/20 03/05/23 Unknown History aerosol inhaler Shortness Of Breath Or Wheezing sertraline 25 mg tablet 25 mg PO DAILY 07/26/20 03/05/23 03/10/23 05:30 History dulaglutide 0.75 mg/0.5 mL 0.75 mg subcut QWEEK 06/14/21 03/05/23 Unknown History subcutaneous pen injector (Trulicity) geriatric multivitamin-min tab PO 1XD 07/22/22 07/22/22 Unknown History amlodipine 5 mg tablet 5 mg PO DAILY 03/05/23 03/05/2323 05:30 History beclomethasone dipropionate 40 2 inh inhalation BID 03/05/23 03/05/23 Unknown History mcg/actuation HFA breath activated aerosol (Qvar RediHaler) cetirizine 10 mg tablet 10 mg PO DAILY PRN Allergy Symptoms 03/05/23 03/05/23 03/10/23 05:30 History meloxicam 15 mg tablet 15 mg PO DAILY 03/05/23 03/05/23 Unknown History naloxone 4 mg/actuation nasal spray 4 mg intranasal Q3M PRN Opioid 03/05/23 03/05/23 Unknown History Overdose furosemide 20 mg tablet 20 mg PO DAILY 03/06/23 03/06/23 Unknown History Exam Exam Date and Time: March 07, [id number] Height,Weight and Vital Signs: Height 4 ft 10 in Weight 71.214 kg Assessment and Plan Assessment Anesthesia Assessment: Chart Reviewed Documented by User: Cindy Gao MD 03/10/23 07:37 HPI - Anesthesia Eval Anesthesia Pre-Procedure Meds If Yes to any meds - educate patient: Pt education - increased risk of aspiration and Pt education - possibility of cancelled proc at provider's discretion PMFSH Past Medical History Medical History Cataract Gallstones Primary osteoarthritis involving multiple joints GERD (gastroesophageal reflux disease) Obesity Asthma Vitamin D deficiency Osteoarthritis Hyperlipidemia Diabetes HTN (hypertension) Family History Family History Father HTN (hypertension) Diabetes Mother HTN (hypertension) Diabetes Asthma Surgical History Surgical History History of heart artery stent Hx of colonoscopy History of back surgery Cataract extraction status of left eye H/O arthroscopic knee surgery Hx of section History of Problems with Anesthesia: No Social History Social History Are you a primary career and guidance counselor to a significant other at home: No Do you presently have visiting nurse or other home services: No Alcohol intake: current Alcohol intake frequency: does not drink Patient Tobacco Use Status: Never used Tobacco Use of substances other than those prescribed or required for medical reasons: No Have you been hit, kicked, punched, or otherwise hurt by someone within the past year? If so, by whom?: No Are you DNR?: No Advance Directives: No Advance Directives Information Provided: Yes Advance Directives on File: No Meds Allergies Allergy/AdvReac Type Severity Reaction Status Date / Time latex [LATEX] Allergy Intermediate ITCHING Verified 03/10/23 06:53 Penicillins Allergy Unknown UNKNOWN-CHILDHOOD Verified 03/10/23 06:53 ALLERGY LOBSTER Allergy Intermediate THROAT Uncoded 07/22/22 14:40 ITCHING Home Medications Medication Instructions Recorded Confirmed Last Taken Type acetaminophen 650 mg 650 mg PO Q8H 06/08/20 03/05/23 Unknown History tablet,extended release (Tylenol 8 Hour) aspirin 81 mg tablet,delayed 81 mg PO DAILY 06/08/20 03/05/23 Unknown History release ezetimibe 10 mg tablet 10 mg PO DAILY 06/08/20 03/05/23 Unknown History fluticasone propionate 50 1 spray intranasal DAILY 06/08/20 03/05/23 03/10/23 05:30 History mcg/actuation nasal spray,suspension gabapentin 300 mg capsule 300 mg PO BID 06/08/20 03/05/23 03/10/23 05:30 History insulin lispro 100 unit/mL 1 sliding scale dose subcut 06/08/20 03/05/23 Unknown History subcutaneous solution (Humalog USEASDIRECTD U-100 Insulin) loratadine 10 mg tablet 10 mg PO DAILY 06/08/20 03/05/23 Unknown History metformin 1,000 mg tablet 1,000 mg PO BID 06/08/20 03/05/23 Unknown History metoprolol tartrate 50 mg tablet 50 mg PO BID 06/08/20 03/05/23 03/10/23 05:30 History omega-3 fatty acids 1,000 mg 1,000 mg PO DAILY 06/08/20 07/22/22 Unknown History capsule (Fish Oil Concentrate) omeprazole magnesium 20 mg 40 mg PO DAILY 06/08/20 03/05/23 03/10/23 05:30 History tablet,delayed release (Prilosec OTC) rosuvastatin 40 mg tablet 40 mg PO DAILY 06/08/20 03/05/23 Unknown History valsartan 40 mg tablet (Diovan) 40 mg PO DAILY 06/08/20 03/05/23 Unknown History albuterol sulfate 90 mcg/actuation 2 puff inhalation Q6H PRN 07/26/20 03/05/23 Unknown History aerosol inhaler Shortness Of Breath Or Wheezing sertraline 25 mg tablet 25 mg PO DAILY 07/26/20 03/05/23 03/10/23 05:30 History dulaglutide 0.75 mg/0.5 mL 0.75 mg subcut QWEEK 06/14/21 03/05/23 Unknown History subcutaneous pen injector ([facility]) geriatric multivitamin-min tab PO 1XD 07/22/22 07/22/22 Unknown History amlodipine 5 mg tablet 5 mg PO DAILY 03/05/23 03/05/23 03/10/23 05:30 History beclomethasone dipropionate 40 2 inh inhalation BID 03/05/23 03/05/23 Unknown History mcg/actuation HFA breath activated aerosol (Qvar RediHaler) cetirizine 10 mg tablet 10 mg PO DAILY PRN Allergy Symptoms 03/05/23 03/05/23 03/10/23 05:30 History meloxicam 15 mg tablet 15 mg PO DAILY 03/05/23 03/05/23 Unknown History naloxone 4 mg/actuation nasal spray 4 mg intranasal Q3M PRN Opioid 03/05/23 03/05/23 Unknown History Overdose furosemide 20 mg tablet 20 mg PO DAILY 03/06/23 03/06/23 Unknown History Exam Airway Mallampati Class: II TM Dist: >3cm Neck ROM: Full Partial: Upper and Lower Loose/Missing/Broken Teeth: Yes, Upper and Lower Heart: RRR Lungs: CTA Assessment and Plan Assessment Anesthesia Assessment: Anesthesia Plan Discussed Final Anesthetic Review History of Problems with Anesthesia: No NPO: Yes ASA Class: III Final Preanesthetic Review: Meds/Allgs Chart Reviewed, Consent Obtained/Reviewed and Anes Risks/Benef Reviewed Patient Risk: Intermediate Procedure Risk: Low Anesthetic Plan Anesthetic Plan: MAC: Disposition: Standard PACU
[2023-03-10 06:17] LABS: Glucose, Whole Blood 62 mg/dL (60-115)
[2023-03-10 06:27] VITALS: BP 100/58; PULSE 61; RESP 16; TEMP 35.9; O2SAT 97
[2023-03-10] MEDS: Dextrose 5 % 100 ML IVCONT (06:30)
[2023-03-10] MEDS: Tetracaine HCl/PF 0.5% Oph Sol 4 ML DROPS 1 DROP EYE-RIGHT (06:33)
[2023-03-10] MEDS: Cyclopentolate 1 % Ophth Sol 2 ML DRPBTL 1 DROP EYE-RIGHT ×3 (06:36→06:48)
[2023-03-10] MEDS: Tropicamide 1 % Ophth Sol 3 ML BTL 1 DROP EYE-RIGHT ×3 (06:37→06:49)
[2023-03-10] MEDS: Ketorolac Tromethamine 0.5% Op 5 ML DROPS 1 DROP EYE-RIGHT ×3 (06:38→06:50)
[2023-03-10] MEDS: Phenylephrine HCL 2.5% Oph SoL 2 ML BOTTLE 1 DROP EYE-RIGHT ×3 (06:39→06:52)
[2023-03-10] MEDS: Lactated Ringers 500 ML 50 ML IV (06:40)
[2023-03-10 07:12] LABS: Glucose, Whole Blood 91 mg/dL (60-115)
--- NOTE | 2023-03-10 07:51 | HO.PNOPHT ---
Ophthalmology Procedure Procedure Date of Service: 03/10/23 Ophthalmology Viscoelastic: Inna Marrerot Dual Pack Pro Ophthalmology Lenses: TECKAYLEIGH [id number] (24) Procedure Notes: PREOPERATIVE DIAGNOSIS: Decreased visual acuity right eye secondary to cataract POSTOPERATIVE DIAGNOSIS: Same PROCEDURE: Right cataract extraction with intraocular lens insertion SURGEON: Moustapha Arriaga M.D. ANESTHESIA: Topical/MAC ESTIMATED BLOOD LOSS: None COMPLICATIONS: None After obtaining informed consent, the patient was brought to the operating room suite and placed in the supine position. After adequate sedation per anesthesia, topical drops of Tetracaine were given to the right eye. The eye was then prepped and draped in the usual sterile fashion. The operating room microscope was then positioned over the operative eye and a lid speculum placed. A paracentesis was created. Viscoelastic was then instilled into the anterior chamber. A three plane incision was then created temporally, utilizing a 2.85 mm keratome. Capsulotomy forceps were then utilized to create a circular tear capsulotomy. Hydrodissection and hydrodelineation were carried out until adequate mobilization of the nucleus occurred. Phacoemulsification was then utilized to remove the dense central nucleus followed by removal of the cortical material utilizing the automated aspiration irrigation unit. Viscoelastic was instilled into the posterior capsular bag followed by placement of a posterior chamber intraocular lens without difficulty. The residual Viscoelastic was then removed utilizing the automated IA machine. The wound was checked and found to be watertight. The patient tolerated the procedure well and the lid speculum was removed. Intracameral injection of Vigamox 0.1 mL followed by a subtenon injection of Kenalog-40 0.2 mL were administered. The patient will be seen in the a.m.
[2023-03-10 08:16] VITALS: BP 100/42; PULSE 60; RESP 16; TEMP 36.2; O2SAT 96
== END 2023-03-10 08:33 | disposition home or self-care (01) ==
PROVIDERS: PCP Internal Medicine; Visit Provider Ophthalmology
PROC: (CPT 66985; principal; 2023-03-10 08:00)
DX: H25.11 Age-related nuclear cataract, right eye (principal); H54.7 Unspecified visual loss; I25.10 Atherosclerotic heart disease of native coronary artery without angina pectoris; I10 Essential (primary) hypertension; Z95.5 Presence of coronary angioplasty implant and graft; I25.2 Old myocardial infarction; E11.9 Type 2 diabetes mellitus without complications; E78.5 Hyperlipidemia, unspecified; M06.9 Rheumatoid arthritis, unspecified; E66.9 Obesity, unspecified; Z79.4 Long term (current) use of insulin; Z79.84 Long term (current) use of oral hypoglycemic drugs; Z79.85 Long-term (current) use of injectable non-insulin antidiabetic drugs; Z79.51 Long term (current) use of inhaled steroids; Z79.01 Long term (current) use of anticoagulants; Z79.82 Long term (current) use of aspirin; Z79.899 Other long term (current) drug therapy; Z88.0 Allergy status to penicillin; Z91.040 Latex allergy status; Z87.891 Personal history of nicotine dependence
CPT/HCPCS: 66984; 82947; J2250; J2405; J3010; J3301; V2632

== ENCOUNTER 2023-05-26 | Outpatient (REF) | payer MEDICARE, MEDICAID, SELFPAY ==
[2023-05-30 06:06] LABS: HPV mRNA E6/E7 rflx Not Detected (Not Detected)
== END 2023-05-26 00:01 | disposition home or self-care (01) ==
LOC: HO.HHCLNP
PROVIDERS: Visit Provider Advanced Practice Midwife
DX: Z12.4 Encounter for screening for malignant neoplasm of cervix (principal); Z11.51 Encounter for screening for human papillomavirus (HPV)
CPT/HCPCS: 87624; 88142

== ENCOUNTER 2023-06-11 13:28 | Outpatient (REF) | payer MEDICARE, MEDICAID, SELFPAY ==
--- NOTE | ~2023-06-11 | MM_ITS ---
EXAMINATION: BONE DENSITOMETRY CLINICAL INDICATION: Postmenopausal. COMPARISON: Previous BD dated 06/21/2011 and baseline BD dated 12/08/2008. TECHNIQUE: Using a [employer] DXA System (software version: 13.1) manufactured by [employer], dual-energy x-ray absorptiometry was performed of the lumbar spine and left hip. The images are of good technical quality. Summary results are attached. FINDINGS: LEFT FEMUR, NECK: Current: BMD 0.960 g/cm2, Z-score 0.9, T-score -0.6, normal. Prior: BMD 1.140 g/cm2. Baseline: BMD 1.145 g/cm2. LEFT FEMUR, TOTAL: Current: BMD 1.067 g/cm2, Z-score 1.6, T-score 0.5, normal, 9.9% decrease from previous, 12.9% decrease from baseline (<5% change is not significant). Prior: BMD 1.184 g/cm2. Baseline: BMD 1.225 g/cm2. AP SPINE L1-L2 (excluding L3 and L4): The data of L1-L4 has been changed to exclude the L3 and L4 vertebral bodies, because degenerative sclerosis at these levels may cause overestimation of lumbar spine density. Current: BMD 1.231 g/cm2, Z-score 2.0, T-score 0.5, normal, 6.7% decrease from previous, 1.4% decrease from baseline (<5% change is not significant). Prior: BMD 1.319 g/cm2. Baseline: BMD 1.248 g/cm2. IDENTIFIED RISK FACTORS: Menopause. HISTORY OF FRACTURE: None listed. MEDICATIONS: Multivitamin. MM/XR DEXA axial skeleton IMPRESSION: 1. DIAGNOSIS: Normal bone density based on the lowest T-score value of -0.6 in the femoral neck applying World Health Organization criteria. 2. 10-YEAR FRACTURE RISK PREDICTION, FRAX: According to the guidelines, FRAX calculation should only be performed on patients in the osteopenia bone density category. Therefore, FRAX was not performed on this patient. 3. Treatment Recommendations: NOF guidelines recommend consideration for treatment in postmenopausal women and men age 50 and older presenting with the following: -A hip or vertebral (clinical or morphometric) fracture. -T-score less than or equal to -2.5 at the femoral neck or spine after appropriate evaluation to exclude secondary causes. -Low bone mass at the hip or spine and a 10-year fracture probability by FRAX of greater than or equal to 3% for hip fracture or greater than or equal to 20% for major osteoporotic fracture based on the [place] adapted WHO algorithm. 4. Other Recommendations: All treatment decisions require clinical judgment and consideration of individual patient factors, including patient preferences, comorbidities, previous drug use, risk factors not captured in the FRAX model (e.g. frailty, falls, vitamin D deficiency, increased bone turnover, interval significant decline in bone density) and possible under or overestimation of fracture risk by FRAX. FUTURE SCAN RECOMMENDATION: People with diagnosed cases of osteoporosis or at high risk for fracture should have regular bone mineral density tests. For patients eligible for Medicare, routine testing is allowed once every 2 years. The testing frequency can be increased to one year for patients who have rapidly progressing disease, those who are receiving or discontinuing medical therapy to restore bone mass, or have additional risk factors.
== END 2023-06-11 13:29 | disposition home or self-care (01) ==
LOC: HO.MAMMO 13:28
PROVIDERS: PCP Internal Medicine; Visit Provider Advanced Practice Midwife
DX: Z13.820 Encounter for screening for osteoporosis (principal); Z78.0 Asymptomatic menopausal state
CPT/HCPCS: 77080

== ENCOUNTER 2023-07-22 13:18 | Outpatient (REF) | payer MEDICARE, MEDICAID, SELFPAY ==
[2023-07-22 14:54] LABS: MANUAL DIFF FLAG NO
[2023-07-22 15:42] LABS: Basophils Percent Auto 0.6 % (0-2); Eosinophils Absolute Auto 0.2 X10*3/uL (0.0-0.4); Eosinophils Percent Auto 2.9 % (0-4); Hematocrit 39.5 % (37.0-47.0); Imm Gran Abs Auto 0.03 X10*3/uL (0.00-0.03); Imm Gran Pct Auto 0.4 % (0.0-0.4); Lymphocytes Absolute Auto 2.3 X10*3/uL (1.2-4.9); Lymphocytes Percent Auto 32.7 % (20-40); Mean Corpuscular HGB Conc 32.9 g/dl (31.0-35.0); Mean Platelet Volume 11.5 fL (9.4-12.3); Monocytes Absolute Auto 0.7 X10*3/uL (0.1-1.2); Monocytes Percent Auto 9.8 % (2-11); Neutrophils Absolute Auto 3.8 x10*3/uL (2.0-8.3); Neutrophils Percent Auto 53.6 % (45-73); Platelet Count 257 X10*3/uL (160-400); Red Blood Count 4.49 X10*6/uL (4.20-5.50); Red Cell Distribution Width 13.6 % (11.0-16.0); White Blood Count 7.1 X10*3/uL (4.8-10.8)
[2023-07-22 16:08] LABS: Alanine Aminotransferase 45 U/L (0-31); Albumin Level 4.1 g/dL (3.5-5.0); Alkaline Phosphatase 81 U/L (39-117); Anion Gap 11 (12-20); Aspartate Amino Transferase 38 U/L (5-31); Bilirubin Total 1.5 mg/dL (0.0-1.0); Blood Urea Nitrogen 19 mg/dL (9-16); C Reactive Protein < 0.10 mg/dL (< or = 0.50); Calcium 10.4 mg/dL (8.4-10.2); Carbon Dioxide 28 mmol/L (22-29); Chloride 107 mmol/L (96-108); Estimated Glomerular Filt Rate > 60; Glucose Random 105 mg/dL (60-115); Potassium 4.3 mmol/L (3.3-5.1); Sodium 142 mmol/L (135-145)
[2023-07-22 16:20] LABS: Erythrocyte Sedimentation Rate 3 MM/HR (0-20)
[2023-07-27 05:37] LABS: Aldolase 5.7 U/L (<=8.1)
== END 2023-07-22 13:19 | disposition home or self-care (01) ==
LOC: HO.LAB 13:18
PROVIDERS: PCP Internal Medicine; Visit Provider Nurse Practitioner Family
DX: M79.18 Myalgia, other site (principal); M19.011 Primary osteoarthritis, right shoulder; M89.49 Other hypertrophic osteoarthropathy, multiple sites
CPT/HCPCS: 20550; 36415; 80053; 82085; 82550; 85025; 85652; 86140; 99212

== ENCOUNTER 2023-07-22 13:18 | Outpatient (AMB) | payer MEDICARE, MEDICAID, SELFPAY ==
--- NOTE | 2023-07-22 13:26 | MHC.OFFVIS ---
Intake Vital Signs 07/22/23 13:28 Height 4 ft 10 in Weight 158 lb 15.253 oz BMI 33.2 BP 94/68 Blood Pressure Location Rt brachial Position Sitting Respiration 16 Pulse 72 Pulse Source Pulse Oximeter Temp 96.8 F Temp Source Skin Pulse Oximetry (%) 98 Oxygen Delivery Method Room Air Intake Visit Reasons: osteoarthritis Piece Maker Required: Yes Allergies latex [LATEX] Allergy (Intermediate, Verified 07/22/23 13:31) ITCHING Penicillins Allergy (Unknown, Verified 07/22/23 13:31) UNKNOWN-CHILDHOOD ALLERGY LOBSTER Allergy (Intermediate, Uncoded 07/22/23 13:31) THROAT ITCHING Medication List - Last Reconciled 07/22/23 by Lizbeth Rothman RN acetaminophen ER (Tylenol 8 Hour) 650 mg PO Q8H albuterol sulfate 90 mcg/actuation 2 puffs inhalation Q6H PRN amlodipine 5 mg PO DAILY aspirin 81 mg PO DAILY blood-glucose transmitter (Pulmologix G6 Transmitter device) As directed cetirizine 10 mg PO DAILY PRN clotrimazole 1% 1 appl topical BID dulaglutide (Trulicity) 0.75 mg subcut QWEEK ezetimibe 10 mg PO DAILY fluticasone propionate 50 mcg/actuation 1 spray intranasal DAILY furosemide 20 mg PO DAILY gabapentin 300 mg PO BID geriatric multivitamin-min tabs PO 1XD insulin lispro (Humalog U-100 Insulin) 1 sliding scale dose subcut USEASDIRECTD isosorbide mononitrate ER 60 mg PO DAILY loratadine 10 mg PO DAILY meloxicam 15 mg PO DAILY metformin 1,000 mg PO BID metoprolol tartrate 50 mg PO BID omega 2-fom-jlz-fish oil [id number] mg (Fish Oil) caps PO omega-3 fatty acids (Fish Oil Concentrate) 1,000 mg PO DAILY omeprazole magnesium (Prilosec OTC) 40 mg PO DAILY rosuvastatin 40 mg PO DAILY sertraline 50 mg PO DAILY valsartan (Diovan) 40 mg PO DAILY HPI HPI Comments History of Present Illness Details Ms. 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 Today her main complaint is pain to her upper arm and shoulders. She says it hurts to lift her hands up and to do her hair is a challenge. She says she has had pain in her shoulders for a long time but it seemed to have gotten worse in the last few months. She also have marked tenderness to her right palm and has had surgeries for carpal tunnel and Dupuytren's. She also describes that sometimes the right 4th finger gets stuck and she has to manually move it which hurts a lot. Prior visit 07/22/2022 Hermelinda: 67yoF presents for follow-up of erosive osteoarthritis of the hands. Last seen in December 2021. Patient states that that over all her hand pain is the same. Her pain worse with use such as with cleaning and washing dishes. Pain is improved with exercises at home, she is taking tylenol and gabapentin. She underwent cervical spine surgery in June 2021 at [facility]. She states that she continues to have pain in her neck and right shoulder since surgery. She has been receiving right shoulder injections, last injection in April 2022, which she states last about 1 week, she has also completed PT. Patient reports she did not undergo shoulder injection in May because she finds the steroid injections increase her blood sugar and are painful. She follows with [facility] for her right shoulder pain. [facility] Medical History (Updated 07/22/23 @ 18:26 by FRANCESCA Delgado) Insulin dependent type 2 diabetes mellitus Myalgia, upper arm Myalgia, shoulder region Cataract Gallstones Primary osteoarthritis involving multiple joints GERD (gastroesophageal reflux disease) Obesity Asthma Vitamin D deficiency Osteoarthritis Hyperlipidemia Diabetes HTN (hypertension) Surgical History History of heart artery stent Hx of colonoscopy History of back surgery Cataract extraction status of left eye H/O arthroscopic knee surgery Hx of section Family History Father HTN (hypertension) Diabetes Mother HTN (hypertension) Diabetes Asthma Social History Are you a primary human services care specialist to a significant other at home: No Do you presently have visiting nurse or other home services: No Alcohol intake: current Alcohol intake frequency: does not drink Patient Tobacco Use Status: Never used Tobacco Review of Systems Const All systems reviewed & are unremarkable except as noted in HPI and below Physical Exam Vital Signs: Last Vital Signs Temp 96.8 F 07/22/23 13:28 Pulse 72 07/22/23 13:28 Resp 16 07/22/23 13:28 BP 94/68 07/22/23 13:28 Pulse Ox 98 07/22/23 13:28 Oxygen Delivery Method Room Air 07/22/23 13:28 BMI result Body Mass Index 33.2 APPEARANCE: Patient in no acute distress EYES: no redness, pupils equal and reactive to light, eyelids normal EARS: External ear normal, canal clear and tympanic membrane normal. NOSE/SINUS: Airflow through both nares, no nasal discharge, no bleeding THROAT: Oral mucosa moist, no ulcerations NECK: No thyromegaly or masses, no adenopathy, trachea midline. HEART: Regular rhythm, S1-S2 heard, no murmurs, rubs or gallops. LUNG: Clear to auscultation, respiratory rate regular nonlabored. ABD: Normal bowel sounds, abdomen soft, nontender. EXTREMITIES: No edema, no calf tenderness, normal peripheral pulses. NEURO: Oriented and alert x3. No focal weakness. Gait normal. SKIN: No inflammatory or neoplastic lesions. Normal color and turgor JOINT EXAM:?? Cervical Spine:? Full range of motion with pain during flexion, extension, left rotation and right rotation. Tenderness to palpation of the cervical spine and cervical spinal muscles. Thoracic Spine:? No scoliosis.? No tenderness on palpation. Lumbar Spine:? Alignment normal.? Full range of motion without pain, no tenderness. Hands:? Normal pain-free range of motion with severe tenderness right 4th flexor tendon, some swelling but no increased warmth or erythema. Able to make a full fist and has a good glove cleaner strength with discomfort. Thickening of the 3rd and 4th flexor tendons felt in both hands. Wrists:? Normal pain-free range of motion without tenderness, swelling, increased warmth or erythema. But our scars for CTS Elbows: Normal pain-free range of motion without tenderness, swelling, increased warmth or erythema. Shoulders:?? LEFT: Full of motion without pain. Moderate tenderness and some weakness2/5 but no swelling, increased warmth or erythema. RIGHT: Pain with flexion and abduction greater than 90 degrees. Tenderness to palpation over the AC joint and anterior aspect of the shoulder. No swelling, increased warmth or erythema. Hips: Full range of motion without pain. Hip bursa: No tenderness. Knees:?? Normal pain-free range of motion without tenderness, swelling, increased warmth or erythema.? There is no effusion or crepitation Ankles:? Normal pain-free range of motion without tenderness, swelling, increased warmth or erythema. Feet:? Normal pain-free range of motion without tenderness, swelling, increased warmth or erythema. Office Procedures Tendon Injection Tendon Injection Details: 0.25 Kenalog to right 4th flexor tendon. Aseptic technigue Patient tolerated procedure well. 42708-Coorjl Tendon Sheath Injection All charges added?: Procedure code (CPT) selection complete Results Reviewed Results Reviewed: Laboratory Tests 06/14/21 07/02/21 16:08 12:23 Sodium 140 Potassium 3.8 Chloride 105 BUN 13 Creatinine 0.63 Calcium 10.2 AST 36 H ALT 36 H [facility] labs 11/11/2017 C3 129, C4 23, CRP 0.16, CCP< 16, CLIFTON negative. Assessment & Plan Assessment & Plan (1) Primary osteoarthritis involving multiple joints: Code(s): M89.49 - Other hypertrophic osteoarthropathy, multiple sites Plan: Stable. May continue Tylenol as needed. (2) Cervical spine pain: Code(s): M54.2 - Cervicalgia Plan: Advised patient to follow-up with spine surgeon. (3) Osteoarthritis of right shoulder: Code(s): M19.011 - Primary osteoarthritis, right shoulder Plan: Referral placed to [facility] orthopedics. (4) Myalgia, upper arm: Code(s): M79.18 - Myalgia, other site (5) Myalgia, shoulder region: Code(s): M79.18 - Myalgia, other site (6) Insulin dependent type 2 diabetes mellitus: Code(s): E11.9 - Type 2 diabetes mellitus without complications; Z79.4 - [facility] (current) use of insulin Plan #OA multiple joint: A review of her chart shows that the patient has had treatment for Osteoarthritis in bilateral hands and bilateral feet and at some point was treated with Plaquenil without relief. While there is no evidence of synovitis on exam, there is severe tenderness to her right 4th flexor tendon where it is evident that she has Dupuytren's. I will give her corticosteroids injection today to help with that. #Myalgia shoulder/possible PMR: On exam she has tenderness to palpation of the cervical spine and cervical spinal muscles. She has pain and limited range of motion in the right shoulder and tenderness on palpation to the bilateral upper arm. She also describes that it is challenging to rise off the toilet seat; she she uses the grab bar to help pull up and also to get out of a car. There is no tenderness to her thighs on palpation but she says they feel weaker than normal. I will have patient do some labs to check her inflammatory markers stiff possible PMR on board. After the labs have resulted will consider to give her a course of prednisone and reassess her response. She does have a glucose monitor and will readjust her insulin if needed while on prednisone. I will call the patient if her labs require immediate attention and also to send her the prednisone. 25 minutes spent reviewing chart, evaluating patient and documenting. Follow-up in 1 month. Orders: Orders Erythrocyte Sedimentation Rate Today M79.18 - Myalgia, other site Complete Blood Count Auto Diff Today M79.18 - Myalgia, other site Comprehensive Met. Panel Today M79.18 - Myalgia, other site Creatine Kinase Total Today M79.18 - Myalgia, other site C Reactive Protein Today M79.18 - Myalgia, other site Aldolase Today M79.18 - Myalgia, other site Coding Level of Care Code Est Pt Level 3 (05613) Diagnoses Primary osteoarthritis involving multiple joints M89.49 Cervical spine pain M54.2 Osteoarthritis of right shoulder M19.011 Myalgia, upper arm M79.18 Myalgia, shoulder region M79.18 Insulin dependent type 2 diabetes mellitus E11.9; Z79.4 CPT Codes Tendon Injection - Tendon Injection 1: [id number]-Ldbosp Tendon Sheath Injection ([id number])
[2023-07-22 13:28] VITALS: BP 94/68; PULSE 72; RESP 16; TEMP 36; O2SAT 98; BMI 33.2
== END 2023-07-22 14:13 | disposition home or self-care (01) ==
PROVIDERS: PCP Internal Medicine; Visit Provider Nurse Practitioner Family
DX: M89.49 Other hypertrophic osteoarthropathy, multiple sites (principal); M54.2 Cervicalgia; M19.011 Primary osteoarthritis, right shoulder; M79.18 Myalgia, other site; E11.9 Type 2 diabetes mellitus without complications; Z79.4 Long term (current) use of insulin
CPT/HCPCS: 20550; 99213

== ENCOUNTER 2023-08-20 13:15 | Outpatient (AMB) | payer MEDICARE, MEDICAID, SELFPAY ==
--- NOTE | 2023-08-20 13:21 | A.OFFVIS_ITS ---
Vital Signs 08/20/23 13:27 Height 4 ft 10 in Weight 158 lb 15.253 oz BMI 33.2 BP 100/60 Blood Pressure Location Rt brachial Position Sitting Pulse 78 Pulse Source Pulse Oximeter Pulse Oximetry (%) 98 Oxygen Delivery Method Room Air Intake Visit Reasons: Trigger Finger/Myalgia Intake Note: Patient last seen 07/22/23, presents today for follow up. Boom Pump Operator Required: Yes Boom Pump Operator Language: Application Support Consultant Name: [id number] Information Interpreted: clinical only Accompanied by: Self / Same As Patient Allergies latex [LATEX] Allergy (Intermediate, Verified 08/20/23 13:23) ITCHING Penicillins Allergy (Unknown, Verified 08/20/23 13:23) UNKNOWN-CHILDHOOD ALLERGY LOBSTER Allergy (Intermediate, Uncoded 08/20/23 13:23) THROAT ITCHING HPI Comments Details: Ms. 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 Today her main complaint is pain to her upper arm and shoulders. She says it hurts to lift her hands up and to do her hair is a challenge. She says she has had pain in her shoulders for a long time but it seemed to have gotten worse in the last few months. She also have marked tenderness to her right palm and has had surgeries for carpal tunnel and Dupuytren's. She also describes that sometimes the right 4th finger gets stuck and she has to manually move it which hurts a lot. 07/22/2023 Tiffanie Ms. 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 Today her main complaint is pain to her upper arm and shoulders. She says it hurts to lift her hands up and to do her hair is a challenge. She says she has had pain in her shoulders for a long time but it seemed to have gotten worse in the last few months. She also have marked tenderness to her right palm and has had surgeries for carpal tunnel and Dupuytren's. She also describes that sometimes the right 4th finger gets stuck and she has to manually move it which hurts a lot. Prior visit 07/22/2022 Hermelinda: 67yoF presents for follow-up of erosive osteoarthritis of the hands. Last seen in December 2021. Patient states that that over all her hand pain is the same. Her pain worse with use such as with cleaning and washing dishes. Pain is improved with exercises at home, she is taking tylenol and gabapentin. She underwent cervical spine surgery in June 2021 at [facility]. She states that she continues to have pain in her neck and right shoulder since surgery. She has been receiving right shoulder injections, last injection in April 2022, which she states last about 1 week, she has also completed PT. Patient reports she did not undergo shoulder injection in May because she finds the steroid injections increase her blood sugar and are painful. She follows with [facility] for her right shoulder pain. [facility] Medical History (Updated 09/12/23 @ 01:27 by FRANCESCA Delgado) Insulin dependent type 2 diabetes mellitus Myalgia, upper arm Myalgia, shoulder region Cataract Gallstones Primary osteoarthritis involving multiple joints GERD (gastroesophageal reflux disease) Obesity Asthma Vitamin D deficiency Osteoarthritis Hyperlipidemia Diabetes HTN (hypertension) Surgical History History of heart artery stent Hx of colonoscopy History of back surgery Cataract extraction status of left eye H/O arthroscopic knee surgery Hx of section Family History Father HTN (hypertension) Diabetes Mother HTN (hypertension) Diabetes Asthma Social History Are you a primary resident care aide to a significant other at home: No Do you presently have visiting nurse or other home services: No Alcohol intake: current Alcohol intake frequency: does not drink Patient Tobacco Use Status: Never used Tobacco Review of Systems Const All systems reviewed & are unremarkable except as noted in HPI and below Physical Exam Vital Signs: Last Vital Signs Pulse 78 08/20/23 13:27 BP 100/60 08/20/23 13:27 Pulse Ox 98 08/20/23 13:27 Oxygen Delivery Method Room Air 08/20/23 13:27 BMI result Body Mass Index 33.2 APPEARANCE: Patient in no acute distress EYES: no redness, pupils equal and reactive to light, eyelids normal EARS: External ear normal, canal clear and tympanic membrane normal. NOSE/SINUS: Airflow through both nares, no nasal discharge, no bleeding THROAT: Oral mucosa moist, no ulcerations NECK: No thyromegaly or masses, no adenopathy, trachea midline. HEART: Regular rhythm, S1-S2 heard, no murmurs, rubs or gallops. LUNG: Clear to auscultation, respiratory rate regular nonlabored. ABD: Normal bowel sounds, abdomen soft, nontender. EXTREMITIES: No edema, no calf tenderness, normal peripheral pulses. NEURO: Oriented and alert x3. No focal weakness. Gait normal. SKIN: No inflammatory or neoplastic lesions. Normal color and turgor JOINT EXAM:?? Cervical Spine:? Full range of motion with pain during flexion, extension, left rotation and right rotation. Tenderness to palpation of the cervical spine and cervical spinal muscles. Thoracic Spine:? No scoliosis.? No tenderness on palpation. Lumbar Spine:? Alignment normal.? Full range of motion without pain, no tenderness. Hands:? Normal pain-free range of motion with severe tenderness right 4th flexor tendon, some swelling but no increased warmth or erythema. 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 Thickening of the 3rd and 4th flexor tendons felt in both hands. Wrists:? Normal pain-free range of motion without tenderness, swelling, increased warmth or erythema. But our scars for CTS Elbows: Normal pain-free range of motion without tenderness, swelling, increased warmth or erythema. Shoulders:?? LEFT: Full of motion without pain. Moderate tenderness and some weakness2/5 but no swelling, increased warmth or erythema. RIGHT: Pain with flexion and abduction greater than 90 degrees. Tenderness to palpation over the AC joint and anterior aspect of the shoulder. No swelling, increased warmth or erythema. Hips: Full range of motion without pain. Hip bursa: No tenderness. Knees:?? Normal pain-free range of motion without tenderness, swelling, increased warmth or erythema.? There is no effusion or crepitation Ankles:? Normal pain-free range of motion without tenderness, swelling, i ncreased warmth or erythema. Feet:? Normal pain-free range of motion without tenderness, swelling, increased warmth or erythema. Results Reviewed Results Reviewed: Laboratory Tests 07/22/23 14:53 Calcium 10.4 H Total Bilirubin 1.5 H AST 38 H ALT 45 H Laboratory Tests 07/22/23 14:53 ESR 3 Total Creatine Kinase 121 C-Reactive Protein < 0.10 Assessment & Plan Assessment & Plan (1) Primary osteoarthritis involving multiple joints: Code(s): M89.49 - Other hypertrophic osteoarthropathy, multiple sites Category: Medical (2) Cervical spine pain: Code(s): M54.2 - Cervicalgia (3) Osteoarthritis of right shoulder: Code(s): M19.011 - Primary osteoarthritis, right shoulder Category: Medical Qualifiers: Osteoarthritis type: primary Qualified Code(s): M19.011 - Primary osteoarthritis, right shoulder (4) Myalgia, upper arm: Code(s): M79.18 - Myalgia, other site Category: Medical (5) Myalgia, shoulder region: Code(s): M79.18 - Myalgia, other site Category: Medical (6) Insulin dependent type 2 diabetes mellitus: Code(s): E11.9 - Type 2 diabetes mellitus without complications; Z79.4 - senior care (current) use of insulin Category: Medical Plan Except for mild elevations in AST/ALT and Calcium levels, the labs were grossly normal, ESR/CRP and CK. Patient is not on a statin, she has no rashes and denies history. Her Dupuytren's pain has improved, but she continues with myalgia to upper arms. I will prescribe prednisone and see if that helps. Meloxicam has not been helpful to the upper arms, thigh and buttocks pain. Prior Assessment 07/22/2023: #OA multiple joint: A review of her chart shows that the patient has had treatment for Osteoarthritis in bilateral hands and bilateral feet and at some point was treated with Plaquenil without relief. While there is no evidence of synovitis on exam, there is severe tenderness to her right 4th flexor tendon where it is evident that she has Dupuytren's. The corticosteroids injection was effective. She does take Meloxicam. #Myalgia shoulder/possible PMR: On exam she has tenderness to palpation of the cervical spine and cervical spinal muscles. She has pain and limited range of motion in the right shoulder and tenderness on palpation to the bilateral upper arm. She also describes that it is challenging to rise off the toilet seat; she she uses the grab bar to help pull up and also to get out of a car. There is no tenderness to her thighs on palpation but she says they feel weaker than normal. I will have patient do some labs to check her inflammatory markers stiff possible PMR on board. After the labs have resulted will consider to give her a course of prednisone and reassess her response. She does have a glucose monitor and will readjust her insulin if needed while on prednisone. I will call the patient if her labs require immediate attention and also to send her the prednisone. 25 minutes spent reviewing chart, evaluating patient and documenting. Follow-up in 6 weeks. Orders: Orders Other Ref Test - [facility] 08/20/23 M79.18 - Myalgia, other site Medications: New prednisone orally daily; 3 tablets per day x 7 day, 2 tablets per day x 7 day then 1 tablet per day 70 tabs 0RF M79.18 - Myalgia, other site Coding Level of Care Code Est Pt Level 3 (65212) Diagnoses Primary osteoarthritis involving multiple joints M89.49 Cervical spine pain M54.2 Primary osteoarthritis of right shoulder M19.011 Osteoarthritis type: primary Myalgia, upper arm M79.18 Myalgia, shoulder region M79.18 Insulin dependent type 2 diabetes mellitus E11.9; Z79.4
[2023-08-20 13:27] VITALS: BP 100/60; PULSE 78; O2SAT 98; BMI 33.2
== END 2023-08-20 14:05 | disposition home or self-care (01) ==
PROVIDERS: PCP Internal Medicine; Visit Provider Nurse Practitioner Family
DX: M89.49 Other hypertrophic osteoarthropathy, multiple sites (principal); M54.2 Cervicalgia; M19.011 Primary osteoarthritis, right shoulder; M79.18 Myalgia, other site; E11.9 Type 2 diabetes mellitus without complications; Z79.4 Long term (current) use of insulin
CPT/HCPCS: 99213

== ENCOUNTER → 2023-08-20 13:15 | Outpatient (BNVA) | payer MEDICARE, MEDICAID, SELFPAY | PROVIDERS: PCP Internal Medicine; Visit Provider Nurse Practitioner Family | DX: M89.49 Other hypertrophic osteoarthropathy, multiple sites (principal); M79.18 Myalgia, other site; M19.011 Primary osteoarthritis, right shoulder; M54.2 Cervicalgia; E11.9 Type 2 diabetes mellitus without complications; Z79.4 Long term (current) use of insulin | CPT/HCPCS: 99212 ==

== ENCOUNTER 2023-10-09 13:36 | Outpatient (AMB) | payer MEDICARE, MEDICAID, SELFPAY ==
--- NOTE | 2023-10-09 13:39 | A.OFFVIS_ITS ---
Vital Signs 10/09/23 13:45 Height 4 ft 10 in Weight 158 lb 4.67 oz BMI 33.1 BP 100/62 Blood Pressure Location Rt brachial Position Sitting Pulse 75 Pulse Oximetry (%) 98 Intake Visit Reasons: Myalgia/CM Intake Note: Patient last seen 08/20/23 by Theodore, presents today for follow up. c/o right buttocks pain, attributes pain to bad roads in [place]. Arrived yesterday. Soccer Commentator Required: No Allergies latex [LATEX] Allergy (Intermediate, Verified 10/09/23 13:46) ITCHING Penicillins Allergy (Unknown, Verified 10/09/23 13:46) UNKNOWN-CHILDHOOD ALLERGY LOBSTER Allergy (Intermediate, Uncoded 10/09/23 13:46) THROAT ITCHING HPI Comments Details: Ms. 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 She is here with her . She just returned from [place]. Her shoulders are improved and feel better with the course of Prednisone. It no longer hurts to lift her hands up and she can do her hair without a challenge. Today her main complaint is pain to right buttocks due to driving on bumpy roads in [place]. It hurts to walk and she walks with the help of her . --heat, Tylnol and stretch to right side 08/20/2023 Ms. 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 Today her main complaint is pain to her upper arm and shoulders. She says it hurts to lift her hands up and to do her hair is a challenge. She says she has had pain in her shoulders for a long time but it seemed to have gotten worse in the last few months. She also have marked tenderness to her right palm and has had surgeries for carpal tunnel and Dupuytren's. She also describes that sometimes the right 4th finger gets stuck and she has to manually move it which hurts a lot. 07/22/2023 Tiffanie Ms. 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 Today her main complaint is pain to her upper arm and shoulders. She says it hurts to lift her hands up and to do her hair is a challenge. She says she has had pain in her shoulders for a long time but it seemed to have gotten worse in the last few months. She also have marked tenderness to her right palm and has had surgeries for carpal tunnel and Dupuytren's. She also describes that sometimes the right 4th finger gets stuck and she has to manually move it which hurts a lot. Prior visit 07/22/2022 Hermelinda: 67yoF presents for follow-up of erosive osteoarthritis of the hands. Last seen in December 2021. Patient states that that over all her hand pain is the same. Her pain worse with use such as with cleaning and washing dishes. Pain is improved with exercises at home, she is taking tylenol and gabapentin. She underwent cervical spine surgery in June 2021 at [facility]. She states that she continues to have pain in her neck and right shoulder since surgery. She has been receiving right shoulder injections, last injection in April 2022, which she states last about 1 week, she has also completed PT. Patient reports she did not undergo shoulder injection in May because she finds the steroid injections increase her blood sugar and are painful. She follows with [facility] for her right shoulder pain. [facility] Medical History (Updated 10/09/23 @ 15:55 by FRANCESCA Delgado) Right buttock pain Insulin dependent type 2 diabetes mellitus Myalgia, upper arm Myalgia, shoulder region Cataract Gallstones Primary osteoarthritis involving multiple joints GERD (gastroesophageal reflux disease) Obesity Asthma Vitamin D deficiency Osteoarthritis Hyperlipidemia Diabetes HTN (hypertension) Surgical History History of heart artery stent Hx of colonoscopy History of back surgery Cataract extraction status of left eye H/O arthroscopic knee surgery Hx of section Family History Father HTN (hypertension) Diabetes Mother HTN (hypertension) Diabetes Asthma Social History Are you a primary child care aide to a significant other at home: No Do you presently have visiting nurse or other home services: No Alcohol intake: current Alcohol intake frequency: does not drink Patient Tobacco Use Status: Never used Tobacco Review of Systems Const All systems reviewed & are unremarkable except as noted in HPI and below Physical Exam Vital Signs: Last Vital Signs Pulse 75 10/09/23 13:45 BP 100/62 10/09/23 13:45 Pulse Ox 98 10/09/23 13:45 BMI result Body Mass Index 33.1 APPEARANCE: Patient in no acute distress EYES: no redness, eyelids normal EARS: External ear normal, canal clear and tympanic membrane normal. NOSE/SINUS: Airflow through both nares, no nasal discharge, no bleeding THROAT: Oral mucosa moist, no ulcerations NECK: No thyromegaly or masses, no adenopathy, trachea midline. HEART: Regular rhythm, S1-S2 heard, no murmurs, rubs or gallops. LUNG: Clear to auscultation, respiratory rate regular nonlabored. ABD: Normal bowel sounds, abdomen soft, nontender. EXTREMITIES: No edema, no calf tenderness, normal peripheral pulses. NEURO: Oriented and alert x3. No focal weakness. Gait normal. SKIN: No inflammatory or neoplastic lesions. Normal color and turgor JOINT EXAM:?? Cervical Spine:? Full range of motion with pain during flexion, extension, left rotation and right rotation. Tenderness to palpation of the cervical spine and cervical spinal muscles. Thoracic Spine:? No scoliosis.? No tenderness on palpation. Lumbar Spine:? Alignment normal.? Full range of motion without pain, no tenderness. Hands:? Normal pain-free range of motion with no more tenderness to right 3rd and 4th flexor tendon, no swelling or increased warmth or erythema. Able to make a full fist and has a good front end application developer strength without discomfort. Thickening of the 3rd and 4th flexor tendons felt in both hands. Wrists:? Normal pain-free range of motion without tenderness, swelling, increased warmth or erythema. scars for CTS Elbows: Normal pain-free range of motion without tenderness, swelling, increased warmth or erythema. Shoulders:?? LEFT: Full of motion without pain. no more Moderate tenderness weakness 4/5; no swelling, increased warmth or erythema. RIGHT: no more Pain with flexion and abduction greater than 90 degrees. No tenderness to palpation over the AC joint and anterior aspect of the shoulder. No swelling, increased warmth or erythema. Hips: Full range of motion without pain. Hip bursa: No tenderness. Knees:?? Normal pain-free range of motion without tenderness, swelling, increased warmth or erythema.? There is no effusion or crepitation Ankles:? Normal pain-free range of motion without tenderness, swelling, increased warmth or erythema. Feet:? Normal pain-free range of motion without tenderness, swelling, increased warmth or erythema. Results Reviewed Results Reviewed: Laboratory Tests 07/22/23 14:53 ESR 3 Anion Gap 11 L Creatinine 0.80 AST 38 H ALT 45 H Total Creatine Kinase 121 C-Reactive Protein < 0.10 Albumin 4.1 Aldolase 5.7 Assessment & Plan Assessment & Plan (1) Primary osteoarthritis involving multiple joints: Code(s): M89.49 - Other hypertrophic osteoarthropathy, multiple sites Category: Medical (2) Osteoarthritis of right shoulder: Code(s): M19.011 - Primary osteoarthritis, right shoulder Category: Medical (3) Myalgia, shoulder region: Code(s): M79.18 - Myalgia, other site Category: Medical (4) Myalgia, upper arm: Code(s): M79.18 - Myalgia, other site Category: Medical (5) Right buttock pain: Code(s): M79.18 - Myalgia, other site Category: Medical Plan #Myalgia shoulder/possible PMR: She continues to feel relieved from the course of Prednisone. She can comb her hair and has no tenderness on PE. She dis experience BS control challenges. #Right Glute Pain: I recommend stretches (gave a hand out), heat and Meloxicam. If that does not improved after a week, she can call the office for xray and a possible injection. She refuses both at this time. 25 minutes spent reviewing chart, evaluating patient and documenting. Follow-up as needed Coding Level of Care Code Est Pt Level 3 (41896) Diagnoses Primary osteoarthritis involving multiple joints M89.49 Osteoarthritis of right shoulder M19.011 Myalgia, shoulder region M79.18 Myalgia, upper arm M79.18 Right buttock pain M79.18
[2023-10-09 13:45] VITALS: BP 100/62; PULSE 75; O2SAT 98; BMI 33.1
== END 2023-10-09 15:11 | disposition home or self-care (01) ==
PROVIDERS: PCP Internal Medicine; Visit Provider Nurse Practitioner Family
DX: M89.49 Other hypertrophic osteoarthropathy, multiple sites (principal); M19.011 Primary osteoarthritis, right shoulder; M79.18 Myalgia, other site
CPT/HCPCS: 99213

== ENCOUNTER → 2023-10-09 13:36 | Outpatient (BNVA) | payer MEDICARE, MEDICAID, SELFPAY | PROVIDERS: PCP Internal Medicine; Visit Provider Nurse Practitioner Family | DX: M89.49 Other hypertrophic osteoarthropathy, multiple sites (principal); M19.011 Primary osteoarthritis, right shoulder; M79.18 Myalgia, other site | CPT/HCPCS: 99212 ==

== ENCOUNTER 2023-12-25 08:08 | Outpatient (REF) | payer MEDICARE, MEDICAID, SELFPAY ==
[2023-12-25 09:19] LABS: Alanine Aminotransferase 30 U/L (0-31); Albumin Level 3.9 g/dL (3.5-5.0); Alkaline Phosphatase 71 U/L (39-117); Anion Gap 11 (12-20); Aspartate Amino Transferase 35 U/L (5-31); Bilirubin Direct 0.4 mg/dL (0.0-0.5); Bilirubin Total 1.4 mg/dL (0.0-1.0); Blood Urea Nitrogen 12 mg/dL (9-16); Carbon Dioxide 29 mmol/L (22-29); Chloride 109 mmol/L (96-108); Cholesterol 124 mg/dL (<200); Estimated Glomerular Filt Rate > 60; Glucose Random 76 mg/dL (60-115); HDL Cholesterol 41 mg/dL (>40); LDL Cholesterol Calculated 47 mg/dL (<100); Potassium 3.9 mmol/L (3.3-5.1); Sodium 145 mmol/L (135-145); Total Protein 6.6 g/dL (6.5-8.0); Triglycerides 180 mg/dL (<150)
[2023-12-25 09:56] LABS: Creatinine Urine 147.56 mg/dL; Microalbum/Creatinine Ratio Ur 11.5 ug/mg cr (<30)
[2023-12-25 11:19] LABS: Reflex LDLD? No
[2024-01-02 21:14] LABS: Ej Ab <11 SI (<11); Jo-1 Ab <11 SI (<11); MDA5 Ab <11 SI (<11); Mi-2 alpha Ab <11 SI (<11); Mi-2 beta Ab 11 SI (<11); NXP-2 (MJ) Ab <11 SI (<11); Oj Ab <11 SI (<11); Pl-12 Ab <11 SI (<11); Pl-7 Ab <11 SI (<11); SRP Ab <11 SI (<11); TIF1 gamma Ab <11 SI (<11)
== END 2023-12-25 08:09 | disposition home or self-care (01) ==
LOC: HO.LAB 08:08
PROVIDERS: Nurse Practitioner Family; PCP Internal Medicine; Visit Provider Internal Medicine
DX: E11.42 Type 2 diabetes mellitus with diabetic polyneuropathy (principal); Z79.4 Long term (current) use of insulin
CPT/HCPCS: 36415; 80048; 80061; 80076; 82043; 82570; 84182; 86235

== ENCOUNTER 2024-05-24 14:16 | Outpatient (REF) | payer MEDICARE, MEDICAID, SELFPAY | END 2024-05-24 14:17 | disposition home or self-care (01) | LOC: HO.MAMMO 14:16 | PROVIDERS: PCP Internal Medicine; Visit Provider Internal Medicine | DX: Z12.31 Encounter for screening mammogram for malignant neoplasm of breast (principal) | CPT/HCPCS: 77063; 77067 ==

== ENCOUNTER → 2024-05-24 14:30 | Outpatient (BNV) | payer MEDICARE, MEDICAID, SELFPAY | PROVIDERS: PCP Internal Medicine; Visit Provider Internal Medicine | DX: Z12.31 Encounter for screening mammogram for malignant neoplasm of breast (principal) | CPT/HCPCS: 77063; 77067 ==

== ENCOUNTER 2024-07-29 13:53 | Outpatient (REF) | payer MEDICARE, MEDICAID, SELFPAY ==
[2024-07-29 16:53] LABS: Erythrocyte Sedimentation Rate 5 MM/HR (0-20)
== END 2024-07-29 13:54 | disposition home or self-care (01) ==
LOC: HO.HHCL 13:53
PROVIDERS: Visit Provider Internal Medicine
DX: G44.52 New daily persistent headache (NDPH) (principal)
CPT/HCPCS: 36415; 85652

== ENCOUNTER 2024-08-27 07:27 | Outpatient (REF) | payer MEDICARE, MEDICAID, SELFPAY ==
--- NOTE | ~2024-08-27 | CT_ITS ---
CLINICAL HISTORY: right sided headache CT head without contrast Comparison: CT/CA - CT HEAD/BRAIN WO CON - 01/26/21 14:25 EDT Findings: The prior CT report is not available for review. No intra-axial mass, midline shift, hydrocephalus, or acute hemorrhage. No significant atrophy-like change or white matter disease. There is no sinus or mastoid fluid. The orbits are unremarkable. There is no acute fracture. IMPRESSION: 1. No acute intracranial findings. This document has been electronically signed by: Michael Dhaliwal MD on 08/27/2024 15:18:42
--- OUTSIDE RECORDS SUMMARY | 2024-08-27 07:29 | XMS_ITS | Encounter Summary ---
Author Organization [employer] Address [address] [place] [address] Care Team Providers Care Lens Engraver Name Role Phone Tam Rosales MD Primary Care Provide r Reason for Visit * Reason Comments Med Refill Encounter Details Date Type Department Care Team (Late st Contact Info) Description 11/18/[address] [facility] MEDICINE [address], [place] [phone] Justa Valdez MD [address] [place], [place] [phone] Gastroesophageal reflux disease without esophagitis Social History Tobacco Use Types Packs/Day Years Used Date Smoking Tobacco: Never Passive Smoke Exposure: Never Smokeless Tobacco: Never Alcohol Use Standard Drinks/Week Comments Yes 0 (1 standard drink = 0.6 oz pur e alcohol) Depression Answer Date Recorded Patient Health Questionnaire-9 Score 0 08/01/2022 Housing Stability Answer Date Recorded What is your housing situation today? I have yessica curiel 02/24/[address] you li ve. Do you have problems with any of the following? None of the above 02/24/2023 Food Insecurity Answer Date Recorded Within the past 12 months, y ou worried that your food would run out before you got money to buy more: Never True 02/24/2023 Within the past 12 months,th e food you bought just didn't last and you didn't have enough money to get more: Never True Transportation Answer Date Recorded In the past 12 months, has l ack of transportation kept you from medical appts, meetings, work or from getting things needed for daily living? No 02/24/2023 Utilities Answer Date Recorded In the past 12 months, has t he electric, gas, oil or water company threatened to shut off services in your home? No 02/24/2023 Depression Answer Date Recorded Patient Health Questionnaire-2 Score 0 08/01/2022 Comments No Sex and Gender Information Value Date Recorded Sex Assigned at Female 03/04/2022 10:14 AM EDT Legal Sex Female 10:14 AM EDT Gender Identity Female 03/04/2022 10:14 AM EDT Sexual Orientation Straight 03/04/2022 10 :14 AM EDT documented as of this encounter Plan of Treatment Upcoming Encounters Date Type Department Care Team (Late st Contact Info) Description 09/09/2024 11:30 AM EDT Office Visit [facility] ADULT DENTAL [address] [place] [address] Kyle Alejo [address] [place] [address] 10/28/2024 3:00 PM EDT Office Visit [facility] MEDICINE [address] [place] [address] Tam Rosales MD [address] [place] [phone] documented as of this encounter Visit Diagnoses Diagnosis Gastroesophageal reflux disease without esophagitis Esophageal reflux documented in this encounter Additional Health Concerns Assessment Noted Time PHQ-9 Depression Total Score: 0 08/02/19 23 11:40 AM EDT documented as of this encounter Care Teams Lens Engraver Relationship Specialty Start Date End Date Tam Rosales MD [address] [place] [phone] PCP - General Internal Medicine 12/07/13 documented as of this encounter
--- OUTSIDE RECORDS SUMMARY | 2024-08-27 07:29 | XMS_ITS | Encounter Summary ---
Author Organization [employer] Address [address] [place] [address] Care Team Providers Care Wool Mixer Name Role Phone Tam Rosales MD Primary Care Provide r Encounter Details Date Type Department Care Team (Late st Contact Info) Description 09/12/2022 Abstract [facility] MEDICINE [address] [place] [address] Tam Rosales MD [address] [place], [place] [phone] Social History Tobacco Use Types Packs/Day Years Used Date Smoking Tobacco: Never Smokeless Tobacco: Never Alcohol Use Standard Drinks/Week Comments Yes 0 (1 standard drink = 0.6 oz pur e alcohol) Depression Answer Date Recorded Patient Health Questionnaire-9 Score 0 08/01/2022 Depression Answer Date Recorded Patient Health Questionnaire-2 Score 0 08/01/2022 Comments Unknown Sex and Gender Information Value Date Recorded Sex Assigned at Female 03/04/2022 10:14 AM EDT Legal Sex Female 10:14 AM EDT Gender Identity Female 03/04/2022 10:14 AM EDT Sexual Orientation Straight 03/04/2022 10 :14 AM EDT COVID-19 Exposure Response Date Recorded In the last 10 days, have yo u been in contact with someone who was confirmed or suspected to have Coronavirus/COVID-19? No / Unsure 09/06/2022 10:46 AM EDT documented as of this encounter Plan of Treatment Upcoming Encounters Date Type Department Care Team (Late st Contact Info) Description 09/09/2024 11:30 AM EDT Office Visit [facility] CHC ADULT DENTAL [address] [place], [place] [phone] Kyle Alejo [address] [place] [address] 10/28/2024 3:00 PM EDT Office Visit [facility] MEDICINE [address] [place] [address] Tam Rosales MD [address] [place] [address] documented as of this encounter Procedures Procedure Name Priority Date/Time Associated Diagnosis Comments COLONOSCOPY Routine 01/22/2019 documented in this encounter Results * Colonoscopy (01/22/2019) Colonoscopy Normal Normal 01/22/2019 Narrative Katlyn Pascual - 01/22/2019 9:21 AM EDT Recommended 10 year follow up ( per provider notes ) us Historical Provider HEALTH MAINTENANCE Edited Result - Final documented in this encounter Visit Diagnoses Not on filedocumented in this encounter Additional Health Concerns Assessment Noted Time PHQ-9 Depression Total Score: 0 08/02/19 23 11:40 AM EDT documented as of this encounter Care Teams Wool Mixer Relationship Specialty Start Date End Date Tam Rosales MD [address] [place] [address] PCP - General Internal Medicine 12/07/13 documented as of this encounter
--- OUTSIDE RECORDS SUMMARY | 2024-08-27 07:29 | XMS_ITS | Encounter Summary ---
Author Organization [email or web address] Address [address] [place] [address] Care Team Providers Care Central Office Repairer Supervisor Name Role Phone Tam Rosales MD Primary Care Provide r Reason for Visit * Reason Comments Dentures Wax try in of lower partial Encounter Details Date Type Department Care Team (Late st Contact Info) Description 08/26/2024 2:00 PM EDT Office Visit [facility] ADULT DENTAL [address] [place] [address] Kyle Alejo [address] [place] [address] Social History Tobacco Use Types Packs/Day Years Used Date Smoking Tobacco: Never Passive Smoke Exposure: Never Smokeless Tobacco: Never Alcohol Use Standard Drinks/Week Comments Never 0 (1 standard drink = 0.6 oz pur e alcohol) Depression Answer Date Recorded Patient Health Questionnaire-9 Score 9 05/04/2024 Patient Health Questionnaire-9 Score 9 05/04/2024 Last PHQ-9: Questionnaire Data Not on file 1 Housing Stability Answer Date Recorded What is your housing situation today? I have yessica curiel 12/18/[address] you li ve. Do you have problems with any of the following? None of the above 12/18/2023 Food Insecurity Answer Date Recorded Within the past 12 months, y ou worried that your food would run out before you got money to buy more: Never True 12/18/2023 Within the past 12 months,th e food you bought just didn't last and you didn't have enough money to get more: Never True Transportation Answer Date Recorded In the past 12 months, has l ack of transportation kept you from medical appts, meetings, work or from getting things needed for daily living? No 12/18/2023 Utilities Answer Date Recorded In the past 12 months, has t he electric, gas, oil or water company threatened to shut off services in your home? No 12/18/2023 Depression Answer Date Recorded Patient Health Questionnaire-2 Score 3 05/04/2024 Internet Access Answer Date Recorded Internet Access Q1 Yes 01/02/2024 Internet Access Q2 Not on file 01/02/2024 Comments No Sex and Gender Information Value Date Recorded Sex Assigned at Female 03/04/2022 10:14 AM EDT Legal Sex Female 10:14 AM EDT Gender Identity Female 03/04/2022 10:14 AM EDT Sexual Orientation Straight 03/04/2022 10 :14 AM EDT documented as of this encounter Progress Notes * Kyle Alejo - 08/26/2024 2:00 PM EDT Dental procedures in this visit [id number] - WAX TRY IN (Completed) Service provider: Kyle Alejo Billing provider: Galindo Luther DDS Patient ID: Lizett Sapp is a 69 y.o. female. Time Out: Date: 08/26/2024 Location: [facility] Tooth: Mandible Procedure: Dentures Verified the above with patient, assistant analyst, and provider. Confirmed via patient's chart, intraorally and by radiographs. Hair Dresser: not applicable Wax try in done by Dr. Kyle Alejo for upper and lower acrylic complete/partial denture Risk, benefits, and alternatives discussed with the patient. CONSENT FORM INITIALED & SIGNED BY THE PATIENT AND COUNTER SIGNED BY DR. Kyle Alejo Medical history: Reviewed in EHR Vitals: There were no vitals taken for this visit. Allergies: Reviewed in EHR Medications: Reviewed in EHR - Lower partial denture try-in done. - Esthetics and phonetics approved by patient and provider. - Occlusion confirmed using articulating paper. - Case to be sent to: [facility] for Final fabrication Patient accepts all aspects of prosthesis and consents to proceed with final processing. Patient released in stable condition. Patient satisfied. NV: Insertion Provider: Dr. Kyle Alejo Liaison Planner: Ramona Cooper Supervising Dentist: Dr. Luther * Galindo Luther DDS - 08/26/2024 2:00 PM EDT Reviewed and signed. documented in this encounter Plan of Treatment Upcoming Encounters Date Type Department Care Team (Late st Contact Info) Description 09/09/2024 11:30 AM EDT Office Visit [facility] CHC ADULT DENTAL [address] [place] [address] Kyle Alejo [address] [place] [address] 10/28/2024 3:00 PM EDT Office Visit [facility] MEDICINE [address] [place] [address] Tam Rosales MD [address] [place], [place] [phone] Scheduled Orders Name Type Priority Associated Diagnoses Orde r Schedule DENTAL LAB DENTURES AND PARTIALS Dental Routine Ordered: 025 documented as of this encounter Procedures Procedure Name Priority Date/Time Associated Diagnosis Comments WAX TRY IN Routine 08/26/2024 2:00 PM EDT documented in this encounter Visit Diagnoses Not on filedocumented in this encounter Additional Health Concerns Assessment Noted Time PHQ-9 Depression Total Score: 9 05/04/20 24 11:46 AM EST documented as of this encounter Care Teams Central Office Repairer Supervisor Relationship Specialty Start Date End Date Tam Rosales MD [address] [place] [phone] PCP - General Internal Medicine 12/07/13 documented as of this encounter
--- OUTSIDE RECORDS SUMMARY | 2024-08-27 07:29 | XMS_ITS | Encounter Summary ---
Author Organization [employer] Address [address] [place] [address] Care Team Providers Care Printed Circuit Boards Laminator Name Role Phone Tam Rosales MD Primary Care Provide r Encounter Details Date Type Department Care Team (Latest Contact Info) Description 07/03/2020 Abstract [facility] CONVERSIONS Dental, Provider, DDS Social History Tobacco Use Types Packs/Day Years Used Date Smoking Tobacco: Never Assessed Comments Unknown Sex and Gender Information Value [...] Description 09/09/2024 11:30 AM EDT Office Visit [facility] CHC ADULT DENTAL [address] [place] [address] Kyle Alejo [address] [place] [address] 10/28/2024 3:00 PM EDT Office Visit [facility] MEDICINE [address] [place], [place] [phone] Tam Rosales MD [address] [place], [place] [phone] documented as of this encounter Visit Diagnoses Not on filedocumented in this encounter Care Teams Printed Circuit Boards Laminator Relationship Specialty Start Date End Date Tam Rosales MD [address] [place] [address] PCP - General Internal Medicine 12/07/13 documented as of this encounter
--- OUTSIDE RECORDS SUMMARY | 2024-08-27 07:29 | XMS_ITS | Encounter Summary ---
Author Organization [employer] Address [address] [place] [address] Care Team Providers Care Programmer Operator Numerical Control Name Role Phone Tam Rosales MD Primary Care Provide r Reason for Visit * Reason Onset Date Comments Pre-op 01/29/2023 Encounter Details Date Type Department Care Team (Late st Contact Info) Description 01/29/2023 Telephone [facility] MEDIC[facility] [address] [place], [place] [phone] Tam Rosales MD [address] [place], [place] [phone] Pre-op Social History Tobacco Use Types Packs/Day Years [...] AM EDT documented as of this encounter Miscellaneous Notes * Telephone Encounter - Jerson Robledo - 02/05/2023 1:06 PM EDT Tc from [facility] [place] regarding Pre op, Jessica stated wend calling back please don'tpress any number just go directly to Appt line and request to speak with her directly. Jessica contact Number [phone] * Telephone Encounter - Becca Nicolas RN - 02/04/2023 11:43 AM EDT [place] jessica [place] [phone] to schedule pre- op , No answer. LVM to call back on [phone]. * Telephone Encounter - Asia Lopez - 01/29/2023 1:42 PM EDT [place]ica [place] [facility] [place] appointment Location[facility] Procedure: right eye cataract surgery Date of Procedure: 03/10 Lab: no EKG: no Anesthesia: local Name of surgeon: Dr. Moustapha Arriaga documented in this encounter Plan of Treatment Upcoming Encounters Date Type Department Care Team (Late st Contact Info) Description 09/09/2024 11:30 AM EDT Office Visit [facility] ADULT DENTAL [address] [place], [place] [phone] Kyle Alejo [address] [place] [address] 10/28/2024 3:00 PM EDT Office Visit [facility] MEDICINE [address] [place], [place] [phone] Tam Rosales MD [address] [place], [place] [phone] documented as of this encounter Visit Diagnoses Not on filedocumented in this encounter Additional Health Concerns Assessment Noted Time PHQ-9 Depression Total Score: 0 08/02/19 23 11:40 AM EDT documented as of this encounter Care Teams Programmer Operator Numerical Control Relationship Specialty Start Date End Date Tam Rosales MD [address] [place] [address] PCP - General Internal Medicine 12/07/13 documented as of this encounter
--- OUTSIDE RECORDS SUMMARY | 2024-08-27 07:29 | XMS_ITS | Clinical Summary ---
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 Screening 1975 Hepatitis B Vaccines (3 of 3 - 19+ 3-dose series) 06/26/2013 04/08/2013, 01/28/2013, 12/24/2012 RSV Patients and Patients Aged 60 years or older (1 - Risk 60-74 years 1-dose series) 2017 Dental Oral Exam 12/13/2023 06/13/2023, 09/24/2022 Dental Prophylaxis 12/13/2024 06/14/2024, 0 06/13/2023, 09/24/2022 SDOH Screening 12/17/2024 12/18/2023 Diabetes: Urine Protein Screening 12/24/2024 12/25/2023, 10/03/2022, 03/12/2022, Additional history exists Lipid Panel 12/24/2024 12/25/2023, 11/0 12/2021, 04/06/2021, Additional history exists Diabetes: Hemoglobin A1C 01/29/202507/29/2 025, 04/15/2024, 01/13/2024, Additional history exists Alcohol/Substance Use Screening 05/04/2025 05/04/2024 Depression Screening 05/04/2025 05/04/2024, 05/04/20 24 Mammogram 05/24/2025 05/24/2024, 07/0 07/2022, 11/04/2022, Additional history exists Dental X-Ray: Bitewings 06/15/2025 06/14/2024, 06/13 Tobacco Screening 08/26/2025 08/26/2024 Dental X-Ray: Full Mouth 06/15/2027 06/14/2024 HPV/Cotest 05/26/2028 05/26/2023, 05/27/2018 Pap Smear 05/26/2028 05/26/2023, 05/27/2018 Colonoscopy 01/22/2029 01/22/2019, 01/22/2019 Colorectal Cancer Screening 01/22/2029 DTaP/Tdap/Td Vaccines (3 - Td or Tdap) 08/01/2032 08/01/2022, 04/08/2013, 07/19/2003 Hepatitis A Vaccines Aged Out 12/24/2012, 06/25/19 13 No longer eligible based on patient's age to complete this topic Zoster Vaccines Completed 02/15/2021, 11/24/2020 Pneumococcal Vaccine: 50+ Years Completed 12/20/2021, 03/02/2013, 08/11/2001, Additional history exists Influenza Vaccine Completed 01/26/2024, , 03/07/2022, Additional history exists COVID-19 Vaccine Completed 02/16/2024, 04/2024, 02/14/2022, Additional history exists HIB Vaccines Aged Out No longer eligi ble based on patient's age to complete this topic HPV Vaccines Aged Out No longer eligi ble based on patient's age to complete this topic IPV Vaccines Aged Out No longer eligi ble based on patient's age to complete this topic Meningococcal Vaccine Aged Out No stacey iesha eligible based on patient's age to complete this topic RSV under 20 months Aged Out No longe r eligible based on patient's age to complete this topic Rotavirus Vaccines Aged Out No longer eligible based on patient's age to complete this topic Procedures Procedure Name Priority Date/Time Associated Diagnosis Comments WAX TRY IN Routine 08/26/2024 2:00 PM EDT SED RATE BY MODIFIED WESTERGREN Routine 07/29/2024 1:55 PM EDT New daily persistent headache POCT GLYCATED HEMOGLOBIN, TOTAL Routine 07/29/2024 1:27 PM EDT Type 2 diabetes mellitus with diabetic polyneuropathy, with long-term current use of insulin ([facility]) POCT GLUCOSE Routine 07/29/2024 1:26 PM EDT Type 2 diabetes mellitus with diabetic polyneuropathy, with long-term current use of insulin (CMS/HCC) CASE PRESENTATION, DETAILED AND EXTENSIVE TREATMENT PLANNING Routine 07/28/2024 3:00 PM EDT BITE REGISTRATION Routine 07/28/2024 3:0 0 PM EDT CASE PRESENTATION, DETAILED AND EXTENSIVE TREATMENT PLANNING Routine 07/08/2024 2:00 PM EST DENTURE IMPRESSION Routine 07/08/2024 2: 00 PM EST DENTURE ADJUSTMENT Routine 07/01/2024 1: 00 PM EST BITEWINGS - 4 RADIOGRAPHIC IMAGES Routine 06/14/2024 3:00 PM EST PANORAMIC RADIOGRAPHIC IMAGE Routine 06/14/2024 3:00 PM EST ORAL HYGIENE INSTRUCTIONS Routine 06/14/2024 3:00 PM EST CASE PRESENTATION, DETAILED AND EXTENSIVE TREATMENT PLANNING Routine 06/14/2024 3:00 PM EST PROPHYLAXIS - ADULT Routine 06/14/2024 3 :00 PM EST BI MAMMOGRAM SCREENING TOMOSYNTHESIS BILATERAL Routine 05/24/2024 2:30 PM EST LIPID PANEL WITH REFLEX TO DIRECT LDL Routine 12/25/2023 8:22 AM EDT Type 2 diabetes mellitus with diabetic polyneuropathy, with long-term current use of insulin (CMS/HCC) ALBUMIN, RANDOM URINE W/CREATININE Routine 12/25/2023 8:16 AM EDT Type 2 diabetes mellitus with diabetic polyneuropathy, with long-term current use of insulin (CMS/HCC) PERIODIC ORAL EVALUATION - ESTABLISHED PATIENT Routine 06/13/2023 1:00 PM EST HPV MRNA E6/E7 REFLEX TO HPV 16, 18/45 Routine 05/26/2023 11:20 AM EST PAP SMEAR Routine 05/26/2023 11:20 AM EST Cervical cancer screening HM COLONOSCOPY Routine 01/22/2019 from Last 3 Months or Most Recently Relevant to Health Maintenance Results * Sed Rate by Modified Westergren (07/29/2024 1:55 PM EDT) Erythrocyte Sedimentation Rate 5 0 - 20 MM/HR [facility] Comment:Patients with polycy themia and many hemoglobin abnormalitiesmay have depressed sed rates whereas patients with anemiamay have elevated sed rates. Blood Venous blood specimen / Unknown 07/29/2024 1:55 PM EDT 07/29/2024 3:55 PM EDT Tam Griggs MD LAB BLOOD ORDERABLES Final Result [facility] [address] [place] [phone] * POCT HGB A1C (07/29/2024 1:27 PM EDT) Pathologist [facility] Hemoglobin A1C 5.9 4.0 - 6.0 % QC Media Lot # [id number] Lot# Expiration Date Blood 07/29/2024 1:27 PM EDT Tam Griggs MD POINT OF CARE TEST EN TER/EDIT ORDERABLES Final Result * POCT Glucose (07/29/2024 1:26 PM EDT) Pathologist [facility] Glucose Blood, POC 117 60 - 200 mg/dL QC Media Lot # [id number] Lot# Expiration Date Blood Capillary blood specimen / Unknown 07/29/2024 1:26 PM EDT Tam Griggs MD POINT OF CARE TEST EN TER/EDIT ORDERABLES Final Result * BI Mammogram Screening Tomosynthesis Bilateral (05/24/2024 2:30 PM EST) Anatomical Region Laterality Modality Breast Bilateral Mammography 05/24/2024 2:30 PM EST Narrative 06/01/2024 3:07 PM EST ? [facility] ? [address] ?[place] [address] ? Mammography Report ? Signed ? Patient: Sapp,Lizett ?MR#: [id number] ?? 67 ? : 1955 ?Acct:[id number] ? Age/Sex: 69 / F ?ADM Date: 05/24/24 ? Loc: HO.MAMMO ? Attending Dr: Tam Lynch MD ? Ordering Physician: Tam Lynch MD ?Resu ?? lts: 1Negative ? Date of Service: 05/24/24 ?Follow Up: 1 Year From Orig ?? inal Mammogram ? Procedure(s): MM tomosynthesis screening BI ?? Accession Number(s): [id number] ? cc: Tam Lynch MD ? EXAMINATION: ?? MM SCREENING DIGITAL BREAST TOMOSYNTHESIS, BILATERAL ? CLINICAL INFORMATION: ? Screening. Asymptomatic. ? COMPARISON: ?? Mammography: Comparison is made with available priors ? TECHNIQUE: ?? Digital breast mammography with tomosynthesis is performed in both the ?? craniocaudal and mediolateral oblique views along with computer-aided ?? detection (CAD). ? FINDINGS: ?? There are scattered areas of fibroglandular density (ACR BI-RADS breast ?? composition Category b). ? There are no significant masses, abnormal calcifications, or other ?? abnormalities. ? MM/MM tomosynthesis screening BI ?? IMPRESSION: ?? No mammographic evidence of malignancy. ? ASSESSMENT: ? BI-RADS BI-RADS 1 - Negative ? RECOMMENDATION: ?? Routine annual mammography screening. ? 1 year F/U ? This examination should not preclude the clinical evaluation of a ?? suspicious palpable abnormality. ? This patient's information was entered into a reminder system with a ?? target due date for their next mammogram. ? Electronically signed by: ??Mounika Beverly DO ??06/01/2024 03:04 PM EST ? Dictated By: ?Mounika Beverly DO ? Signed By: ?<Electronically signed by Mounika Beverly, DO in OV> ? 06/01/24 1504 ? DD/ 1430 ? TD/TT: 05/24/24 1437 ? Email Production Specialist: ? Procedure Note Donwinterisacamintater, Image - 06/01/2024 [facility] [address] [place] [address] Mammography Report Signed Patient: Lizett SappMR#: [id number] 67 : 1955cct:[id number] Age/Sex: 69 / FADM Date: 05/24/24 Loc: [facility] Attending Dr: Tam Lynch MD Ordering Physician: Tam Lynch MDResu lts: 1Negative Date of Service: 05/24/24Follow Up: 1 Year From Orig ina Mammogram Procedure(s): MM tomosynthesis screening BI Accession Number(s): [id number] cc: Tam Lynch MD EXAMINATION: MM SCREENING DIGITAL BREAST TOMOSYNTHESIS, BILATERAL CLINICAL INFORMATION: Screening. Asymptomatic. COMPARISON: Mammography: Comparison is made with available priors TECHNIQUE: Digital breast mammography with tomosynthesis is performed in both the craniocaudal and mediolateral oblique views along with computer-aided detection (CAD). FINDINGS: There are scattered areas of fibroglandular density (ACR BI-RADS breast composition Category b). There are no significant masses, abnormal calcifications, or other abnormalities. MM/MM tomosynthesis screening BI IMPRESSION: No mammographic evidence of malignancy. ASSESSMENT: BI-RADS BI-RADS 1 - Negative RECOMMENDATION: Routine annual mammography screening. 1 year F/U This examination should not preclude the clinical evaluation of a suspicious palpable abnormality. This patient's information was entered into a reminder system with a target due date for their next mammogram. Electronically signed by: Mounika Beverly DO 06/01/2024 03:04 PM [facility] Dictated By: Mounika Beverly DO Signed By: <Electronically signed by Mounika Beverly DO in OV> 06/01/24 1504 DD/ 1430 TD/TT: 05/24/24 1437 Email Production Specialist: Tam Griggs MD IMG BI PROCEDURES Fin al Result * (ABNORMAL) Lipid Panel with Reflex to Direct LDL (12/25/2023 8:22 AM EDT) Triglycerides 180(H) <150 mg/dL [facility] Comment:Desirable Triglyceri de: less than 150 mg/dLBorderline High Triglyceride 150-199 mg/dLHigh Triglyceride: 200-499 mg/dLVery High Triglyceride: greater than or equal to 5OO mg/dL Cholesterol 124 <200 mg/dL [facility] Comment:Desirable Cholestero l: less than 200 mg/dLBorderline High Cholesterol: 200-239 mg/dLHigh Cholesterol: greater than 239 mg/dL LDL Cholesterol Calculated 47 <100 mg/dL [facility] Comment:Desirable LDL: less than 100 mg/dLNear Optimal/Above Optimal LDL: 110- 129 mg/dLBorderline High LDL: 130-159 mg/dLHigh LDL: 160-189 mg/dLVery High LDL: greater than or equal to 190 mg/dL HDL Cholesterol 41 >40 mg/dL [facility] Comment:Desirable HDL: great er than 40 mg/dL Note: This HDL assay may give artificially low results in patients with liver disease. Blood 12/25/2023 8:22 AM EDT 12/25/2023 8:24 AM EDT us Tam Griggs MD LAB BLOOD ORDERABLES Final Result Performing Organization Address City/[facility]/ZIP Co de Phone Number [facility] [address] [place] [phone] * Albumin, Random Urine W/Creatinine (12/25/2023 8:16 AM EDT) Creatinine, Urine 147.56 mg/dL [facility] Microalbumin Urine 17.0 mg/L [facility] Microalbum Creatinine Ratio Ur 11.5 <30 ug/mg cr [facility] Comment:Albumin/Creatinine R atio Reference Ranges: Normal: < 30 ug/mg creatinine Microalbuminuria: 30 - 300 ug/mg creatinineClinical Albuminuria: > 300 ug/mg creatinine Urine (Urine, Random) 12/25/2023 8:16 AM EDT 12/25/2023 8:42 AM EDT Tam Griggs MD LAB URINE ORDERABLES Final Result Performing Organization Address [facility] Co de Phone Number [facility] [address] [place] [phone] * HPV mRNA E6/E7 w/Reflex to HPV Genotypes 16, 18/45 (05/26/2023 11:20 AM EST) HPV nRNA E6/E7 Not Detected Not Detected [facility] Comment:Methodology: Transcr iption-Mediated AmplificationThis assay detects E6/E7 viral messenger RNA (mRNA) from 14high-risk HPV types (16,18,31,33,35,39,45,51,52,56,58,59,66,68).Cervical sources are required for HPV testing.If a vaginal source from a patient who has had atotal hysterectomy with removal of cervix wassubmitted, please contact the testing laboratoryfor alternative testing options.For additional information, please refer tohttp://education.Aux[employer]/faq/NFJ394i4(This link if provided for information/educational purposes only.)THIS TEST WAS PERFORMED AT:[employer] [place] [phone] D DUQUE MD HPV mRNA E6/E7 TNP [facility] HPV 16 RNA TNP [facility] HPV 18/45 RNA TNP [facility] 05/26/2023 11:2 0 AM EST 05/27/2023 9:30 AM EST Alisa Rubio [facility] CYTOLOGY ORDERABLES F inal Result [facility] [address] [place] [address] [phone] * Pap Smear (05/26/2023 11:20 AM EST) Swab Cervix uteri structure / Unknown 05/26/2023 11:20 AM EST 05/27/2023 9:30 AM EST Narrative [facility] - 06/05/2023 9:34 AM EST ----- ------- Name: Lizett Sapp ? Age/Sex: 68/F ? : 1955 Unit#: [id number] ?? Attend Dr: ?Re05/26/23 ?Status: PRE REF ? Location: HO.LNP ?Disch: ? ----- ------- SPEC : [id number] ? RECD: 05/27/23 ? STATUS: ??SOUT ? REQ NUM: [id number] ? VENKAT: 05/26/23 ? SUBM DR: ALISA RUBIO CNM ? ENTERED: ??05/27/23 ?SP TYPE: Pap Smr ?OTHR : ? ORDERED: ??Pap Smear ? Interpretation ?? Satisfactory for evaluation. ?? Atrophic. ?? Negative for intraepithelial lesion or malignancy. ?HPV mRNA E6/E7: ?NOT DETECTED ? This assay detects E6/E7 viral messenger RNA (mRNA) from 14 high-risk HPV types (16, 18, ?? 31, 33, 35, 39, 45, 51, 52, 56, 58, 59, 66, 68) ?? HPV testing performed by [employer], [place], [place]. ??See reference laboratory ?? portion of the EMR for entire report. ?Clinical Information LMP: Postmenopausal Previous PAP test: Unknown date/findings ? Material Received ?? ThinPrep-Cervical ----- ------- Signed (signature on file) DAKSHA Perez (ASCP) 06/05/23 0934 ? ----- ------- ? END OF REPORT ? Alisa Rubio [facility] CYTOLOGY ORDERABLES F inal Result [facility] [address] [place], [place] [phone] * Colonoscopy (01/22/2019) Colonoscopy Normal Dr Mock Historical Provider HEALTH MAINTENANCE Final Result from Last 3 Months or Most Recently Relevant to Health Maintenance Insurance [facility] STANDARD MEDICARE DENTAL-[facility] MEDICAID STAND ADULT Care Teams Head Teller Relationship Specialty Start Date End Date Tam Rosales MD [address] [place] [address] PCP - General Internal Medicine 12/07/13
--- OUTSIDE RECORDS SUMMARY | 2024-08-27 07:29 | XMS_ITS | Encounter Summary ---
Author Organization [employer] Address [address] [place] [address] Care Team Providers Care Form Presser Name Role Phone Tam Roasles MD Primary Care Provide r Reason for Visit * Reason Comments Med Refill Encounter Details Date Type Department Care Team ([facility] st Contact Info) Description 02/08/[address] [facility] MEDICINE [address] [place], [place] [phone] Tam Rosales MD [address] [place], [place] [phone] Need for malaria prophylaxis Social History Tobacco Use Types Packs/Day Years Used Date Smoking Tobacco: Never Passive Smoke Exposure: Never Smokeless Tobacco: Never Alcohol Use Standard Drinks/Week Comments Yes 0 (1 standard drink = 0.6 oz pur e alcohol) Depression Answer Date Recorded Patient Health Questionnaire-9 Score 0 08/01/2022 Housing Stability Answer Date Recorded What is your housing situation today? I have yessica sing 12/18/[address] you li [...] Recorded Patient Health Questionnaire-2 Score 0 08/01/2022 Internet Access Answer Date Recorded Internet Access [...] Description 09/09/2024 11:30 AM EDT Office Visit [facility] ADULT DENTAL [address] [place] [address] Sapna, Kyle [address] [place] [address] 10/28/2024 3:00 PM EDT Office Visit [facility] MEDICINE [address] [place] [address] Tam Rosales MD [address] [place] [address] documented as of this encounter Visit Diagnoses Diagnosis Need for malaria prophylaxis documented in this encounter Additional Health Concerns Assessment Noted Time PHQ-9 Depression Total Score: 0 08/02/19 23 11:40 AM EDT documented as of this encounter Care Teams Form Presser Relationship Specialty Start Date End Date Tam Rosales MD [address] [place] [phone] PCP - General Internal Medicine 12/07/13 documented as of this encounter
== END 2024-08-27 07:28 | disposition home or self-care (01) ==
LOC: HO.CT 07:27
PROVIDERS: PCP Internal Medicine; Visit Provider Internal Medicine
DX: G44.52 New daily persistent headache (NDPH) (principal)
CPT/HCPCS: 70450

== ENCOUNTER → 2024-08-27 07:29 | Outpatient (BNV) | payer MEDICARE, MEDICAID, SELFPAY | PROVIDERS: PCP Internal Medicine; Visit Provider Nuclear Medicine | DX: R51.9 Headache, unspecified (principal) | CPT/HCPCS: 70450 ==

== ENCOUNTER 2024-10-28 15:38 | Outpatient (REF) | payer MEDICARE, MEDICAID, SELFPAY ==
--- NOTE | ~2024-10-28 | XR_ITS ---
EXAMINATION: XR FEMUR, LEFT CLINICAL INFORMATION: left hip and left thigh pain COMPARISON: None available. TECHNIQUE: AP and lateral views of the left femur were obtained. FINDINGS: Proximal femur was imaged on same day hip x-ray. No fracture or acute deformity is evident. There is moderate vascular calcification in the femoral and popliteal artery. Stippled calcific density is present in the soft tissues posterior to the femoral condyles, likely within a gastrocnemius tendon. There is also chondrocalcinosis in the medial and lateral meniscus. 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 Electronically signed by: Pipe Salinas MD 10/28/2024 04:16 PM EDT
--- NOTE | ~2024-10-28 | XR_ITS ---
EXAMINATION: XR HIP, LEFT CLINICAL INFORMATION: left hip pain COMPARISON: None available. TECHNIQUE: Two views of the left hip. FINDINGS: No fracture, dislocation, or suspicious bone lesion. Normal bone mineralization. Normal alignment. Joint spaces are preserved. Mild degenerative arthritis. Soft tissues demonstrate vascular calcifications but are otherwise normal. XR/XR hip LT min 2V IMPRESSION: 1. No acute abnormality of the left hip. Electronically signed by: Sam Salter MD 10/28/2024 04:14 PM EDT
== END 2024-10-28 15:39 | disposition home or self-care (01) ==
LOC: HO.HHCX 15:38
PROVIDERS: Visit Provider Internal Medicine
DX: M25.552 Pain in left hip (principal)
CPT/HCPCS: 73502; 73552

== ENCOUNTER → 2024-10-28 15:39 | Outpatient (BNV) | payer MEDICARE, MEDICAID, SELFPAY | PROVIDERS: Visit Provider Radiology Diagnostic Radiology | DX: M25.552 Pain in left hip (principal); M11.262 Other chondrocalcinosis, left knee | CPT/HCPCS: 73502 ==

== ENCOUNTER 2025-01-20 10:26 | Outpatient (REF) | payer MEDICARE, MEDICAID, SELFPAY ==
--- OUTSIDE RECORDS SUMMARY | 2025-01-20 12:26 | XMS_ITS | Encounter Summary ---
Author Organization [employer] Address [address] [place] [address] Care Team Providers Care Mushroom Press Operator Name Role Phone Tam Rosales MD Primary Care Provide r Reason for Visit * Reason Comments Med Refill Encounter Details Date Type Department Care Team ([facility] st Contact Info) Description 11/18/2023 Refill [facility] MED[facility] [address] [place], [place] [phone] Justa Valdez MD [address] [place], [place] [phone] Gastroesophageal reflux disease without esophagitis Social History [...] Care Team (Late st Contact Info) Description 01/27/2025 2:00 PM EDT Office Visit [facility] [address] [place] [address] Tam Rosales MD [address] [place] [address] documented as of this encounter Visit Diagnoses Diagnosis Gastroesophageal reflux disease without esophagitis Esophageal reflux documented in this encounter Additional Health Concerns Assessment Noted Time PHQ-9 Depression Total Score: 0 08/02/19 23 11:40 AM EDT documented as of this encounter Care Teams Mushroom Press Operator Relationship Specialty Start Date End Date aTm Rosales MD [address] [place] [phone] PCP - General Internal Medicine 12/07/13 documented as of this encounter
--- OUTSIDE RECORDS SUMMARY | 2025-01-20 12:26 | XMS_ITS | Encounter Summary ---
Author Organization [employer] Address [address] [place] [address] Care Team Providers Care Cushion Maker Hand Name Role Phone Tam Rosales MD Primary Care Provide r Reason for Visit * Reason Comments Med Refill Encounter Details Date Type Department Care Team ([facility] st Contact Info) Description 02/08/2024 Refill [facility] MEDICINE [address] [place], [place] [phone] Tam Rosaels MD [address] [place], [place] [phone] Need for malaria prophylaxis Social History Tobacco [...] Description 01/27/2025 2:00 PM EDT Office Visit [facility] MEDICINE [address] [place] [address] Tam Rosales MD [address] [place] [address] documented as of this encounter Visit Diagnoses Diagnosis Need for malaria prophylaxis documented in this encounter Additional Health Concerns Assessment Noted Time PHQ-9 Depression Total Score: 0 08/02/19 23 11:40 AM EDT documented as of this encounter Care Teams Cushion Maker Hand Relationship Specialty Start Date End Date Tam Rosales MD [address] [place] [phone] PCP - General Internal Medicine 12/07/13 documented as of this encounter
--- OUTSIDE RECORDS SUMMARY | 2025-01-20 12:26 | XMS_ITS | Clinical Summary ---
Author Organization [employer] Address [address] [facility] [address] [place] [address] Care Team Providers [facility] Food Service Worker Name Role Phone Tam Rosales MD Primary [...] solution USE PER INSTRUCTION FROM ENDOCRINOLOGY TEAM [facility] PUMP Active rosuvastatin (Crestor) 40 MG tablet Rosuvastatin 40mg tab Take 1 tablet by oral route every day Active Blood Pressure Monitor kit Use 1 by [facility].(Non-drug;c ombo route) route 021 Active aspirin 81 [...] 40 Units in the evening. 023 Active Alcohol Swabs (B-D SINGLE USE SWABS REGULAR) pads USE UP TO 8 TIMES DAILY 200 each 11 025 Active valsartan (Diovan) 40 MG tabletIndicatio ns:Primary hypertension TAKE 1 TABLET BY MOUTH EVERY DAY 90 tablet 3 025 Active acetaminophen (Tylenol 8 Hour) 650 MG ER tabletIndicatio ns:Chronic right shoulder pain Take 1 tablet (650 mg) by mouth every 8 (eight) hours if needed for moderate pain. 60 tablet 3 025 Active meloxicam (Mobic) 15 MG tabletIndicatio ns:Chronic right shoulder pain TAKE 1 TABLET BY MOUTH EVERY MORNING 30 tablet 025 Active fluticasone (Flonase) 50 MCG/ACT nasal sprayIndication s:Seasonal allergies ROCIAR 2 VECES EN CADA FOSA NASAL DOS VECES AL JIMENA 48 mL 025 Active omeprazole (PriLOSEC) [address] niceIndmarilinti ons:Gastroesoph ageal reflux disease without esophagitis TAKE 1 CAPSULE BY MOUTH BEFORE BREAKFAST 90 capsule 025 Active metoprolol tartrate (Lopressor) 50 MG tablet TAKE 1 TABLET BY MOUTH TWICE A DAY WITH FOOD 180 tablet 025 Active metoprolol tartrate (Lopressor) 50 MG tablet TAKE 1 TABLET BY MOUTH TWICE A DAY WITH FOOD 180 tablet 025 2024 Discontinued Active Problems Problem Noted Date Diagnosed Date Left hip pain 10/28/2024 Assessment & Plan (10/28/2024 3:23 PM EDT): Pt c/o left hip pain ever since she came from [facility] On exam, there is no palpable mass, redness or swelling Plan: Plain films left hip New daily persistent headache 07/29/2024 Assessment & Plan (07/29/2024 1:36 PM EDT): Patient with c/o right sided headache x 1 month intensity 09/11, Denies any vision changes Plan: CT Brain, ESR. Need for malaria prophylaxis 01/01/2024 Assessment & Plan (01/01/2024 3:54 PM EDT): Pt travelling to [facility] in February Takes Doxy 100 mg [...] Pt with c/o severe right shoulder pain 9/[address] Medrano at [facility]. Underwent PT and multiple steroid injections [...] Pt with c/o severe right shoulder pain 9/[address] Medrano at [facility]. Underwent PT and multiple steroid injections with NO good results. 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 Repeat Lipid profile Assessment & Plan (01/01/2024 3:07 PM EDT): [...] loss. Hypertensive disorder 08/16/2014 Assessment & Plan (10/28/2024 3:00 PM EDT): Patient here for a f/u [...] 0.80 07/22/2023 were within normal limits. Repeat BMP, she did not do it as I ordered previous visit patient advised to adhere to a low sodium diet, encouraged about medication compliance, counseled about weight loss. Assessment & Plan (07/29/2024 1:20 PM EDT): [...] chest pain . Pt has CAD s/p AR with DORENE x 3 in February or 2012. s/p cardiac rehab. Pt taking Metoprolol 50mg po BID takes ASA 81 mg po daily Effient was discontinued by Cardiology Continue to follow up with Cardiology, last seen 05/13/2024 Assessment & Plan (01/01/2024 3:04 PM EDT): Pt here for a f/u Denies any chest pain at the moment Pt has CAD s/p AR with DORENE x 3 in February or 2012. s/p cardiac rehab. Pt taking Metoprolol 50mg po BID takes ASA 81 mg po daily Effient was discontinued by Cardiology Continue to follow up with Cardiology, last seen 10/28/2023 Assessment & Plan (08/01/2022 10:11 AM EDT): Pt here for a f/u Denies any chest pain at the moment Pt has CAD s/p AR with DORENE x 3 in February or 2012. s/p cardiac rehab. [facility] Pt taking Metoprolol 50mg po BID takes [...] Under the care of Dr Ramos at [facility]. On Sertraline 50 mg po daily prescribed by psych Patient denies any suicidal ideation or thoughts, Patient has crisis numbers and knows to use them if needed. Assessment & Plan (08/01/2022 10:12 AM EDT): Patient here for a follow feels good, Under the care of Lana Wilson at [facility]. On Celexa 20 mg po daily and Trazodone 100 mg po daily and Klonopin 0.5 mg prn prescribed by psych Patient denies any suicidal ideation or thoughts, Patient has crisis numbers and knows to use them if needed. Type 2 diabetes mellitus 10/17/2011 Assessment & Plan (10/28/2024 3:25 PM EDT): Patient is here for a f/u She is on a regimen of Metformin 1000 mg po BID, Insulin pump and Ozempic 1mg q week (off Farxiga due to vaginal itching ) per Endocrinology Dr Hardin. Her Invokana was stopped due to vaginal candidiasis Foot check today is risk of zero Microalbumin 01/13/2024 was <1.2. Pt on ARB Hgb A1c on 10/28/2024: 5.5 from 5.9 from 6.4 Plan: Continue to follow with Time Study Statistician Dr Hardin at [facility], last seen 08/19/20[address] Eye exam done [address] Dr. Carrillo 06/13/2022 No retinopathy. Pt has been encouraged to continue to follow with the life educator and the Time Study Statistician Follow up in 4 months. Assessment & Plan (07/29/2024 1:28 PM EDT): [...] from 6.4 Plan: Continue to follow with Time Study Statistician Dr Hardin at [facility], last seen 06/08/2024 Eye exam done by Dr. Carrillo 06/13/2022 No retinopathy. Pt has been encouraged to continue to follow with the life educator and the Time Study Statistician Follow up in 4 months. Assessment & [...] 04/15/2024: 6.4 plan: Continue to follow with Time Study Statistician Dr Hardin at [facility], last seen 04/22/[address] Eye exam done [address] Carrillo 06/13/2022 No retinopathy. Pt has been encouraged to continue to follow with the life educator and the Time Study Statistician Follow up in 4 months. Assessment & [...] 01/01/2024: 6.3 plan: Continue to follow with Time Study Statistician Dr Hardin at [facility], last seen 10/15/[address] Carrillo 04/09/2018 No retinopathy. Pt has been encouraged to continue to follow with the life educator and the Time Study Statistician Follow up in 4 months. Assessment & [...] 04/24/2023: 6.1 plan: Continue to follow with Time Study Statistician Dr Hardin at [facility], last seen 03/15/[address] done [address] Carrillo 04/09/2018 No retinopathy. Pt has been encouraged to continue to follow with the life educator and the Time Study Statistician Follow up in 4 months. Assessment & [...] A1c on 10/03/2022 : 6.1 done at [facility] plan: Continue to follow with Time Study Statistician Dr Hardin at [facility], last seen 03/15/[address] Eye exam done [address] Carrillo 04/09/2018 No retinopathy. Pt has been encouraged to continue to follow with the life educator and the Time Study Statistician Follow up in 4 months. Assessment & [...] : 6.3 plan: Continue to follow with Time Study Statistician Dr Hardin at [facility], last seen 03/15/[address] Carrillo 04/09/2018 No retinopathy. Pt has been encouraged to continue to follow with the life educator and the Time Study Statistician Follow up in 4 months. Assessment & [...] was 7 plan: Continue to follow with Time Study Statistician Dr Hardin at [facility], last seen 03/15/[address] Carrillo 04/09/2018 No retinopathy. Pt has been encouraged to continue to follow with the life educator and the Time Study Statistician 4 month visit Obesity 10/17/2011 Assessment & [...] Encounters Date Type Department Care Team Description 12/24/2024 Refill [facility] [address] [place] [address] Tam Rosales MD 12/17/2024 Refill [facility] [address] [place] [address] Tam Rosales MD Gastroesophageal reflux disease without esophagitis 12/05/2024 Refill [facility] [address] [place] [address] Tam Rosales MD Seasonal allergies 11/26/2024 Refill [facility] [address] [place] [address] Tam Rosales MD Chronic right shoulder pain 10/30/2024 Results Follow-Up [facility] [address] [facility] [place] [address] Tam Rosales MD XR Hip 2 or 3 Views Left 10/28/2024 3:00 PM EDT Office Visit [facility] [address] [place] [address] Tam Rosales MD Type 2 diabetes mellitus with diabetic polyneuropathy, with long-term current use of insulin ([facility]) (Primary Dx); Primary hypertension; Mixed hyperlipidemia; Left hip pain 10/28/2024 Travel 10/27/2024 Telephone [facility] [address] [place] [address] Dom Arnold [place] CHART PREP from Last 3 Months Immunizations Immunization Administration Dates Next Due Hep A, Adult [...] Date Recorded Patient Health Questionnaire-9 Score 0 10/28/2024 Patient Health Questionnaire-9 Score 0 10/28/2024 Last PHQ-9: Questionnaire Data Not on file 0 10/28/2024 Housing Stability Answer Date Recorded What is [...] Date Recorded Patient Health Questionnaire-2 Score 0 10/28/2024 Internet Access Answer Date Recorded Internet Access [...] Sign Reading Time Taken Comments Blood Pressure 112/72 10/28/2024 3:09 PM EDT Pulse 70 10/28/2024 3:09 PM EDT Temperature 36.2 C (97.2 F) 10/28/2024 3:09 PM EDT Respiratory Rate 20 10/28/2024 3:09 PM EDT Oxygen Saturation 99% 10/28/2024 3:09 PM EDT Inhaled Oxygen Concentration - - Weight 69.5 kg (153 lb 3.2 oz) 10/28/2024 3:09 P M EDT Height 147.3 cm (4' 10 ) 10/28/2024 3:09 PM EDT Body Mass Index 32.02 10/28/2024 3:09 PM EDT Plan of Treatment Upcoming Encounters Date Type Department Care Team (Late st Contact Info) Description 01/27/2025 2:00 PM EDT Office Visit [facility] [address], [place] [phone] Tam Rosales MD [address] [place] [address] Health Maintenance Due Date Last Done Comments [...] Dental Prophylaxis 12/13/2024 06/14/2024, 0 06/13/2023, 09/24/2022 Diabetes: Urine Protein Screening 12/24/2024 12/25/2023, 10/03/2022, 03/12/2022, Additional history exists Lipid Panel 12/24/2024 12/25/2023, 06/0 05/2022, 03/12/2022, Additional history exists COVID-19 Vaccine ( season) 2025 02/16/2024, 05/16/2023, 02/14/2022, Additional history exists Influenza Vaccine (#1) 2025 , 01/20/2023, 03/07/2022, Additional history exists Alcohol/Substance Use Screening 05/04/2025 05/04/2024 Mammogram 05/24/2025 05/24/2024, 07/0 07/2022, 11/04/2022, Additional history exists Diabetes: Hemoglobin A1C 06/05/2025 025, 10/28/2024, 07/29/2024, Additional history exists Dental X-Ray: Bitewings 06/15/2025 06/14/2024, 06/13 Depression Screening 10/28/2025 10/28/2024, 10/29/19 25 SDOH Screening 10/28/2025 10/28/2024 Tobacco Screening 10/28/2025 10/28/2024 Dental X-Ray: Full Mouth 06/15/2027 06/14/2024 HPV/Cotest [...] Completed 12/20/2021, 03/02/2013, 08/11/2001, Additional history exists HIB Vaccines Aged Out No longer eligi ble based on patient's age to complete this topic HPV Vaccines Aged Out No longer eligi ble based on patient's age to complete this topic IPV Vaccines Aged Out No longer eligi ble based on patient's age to complete this topic Meningococcal B Vaccine Aged Out No l onger eligible based on patient's age to complete [...] Procedure Name Priority Date/Time Associated Diagnosis Comments POCT GLYCATED HEMOGLOBIN, TOTAL Routine 10/28/2024 3:23 PM EDT Type 2 diabetes mellitus with diabetic polyneuropathy, with long-term current use of insulin ([facility]) POCT GLUCOSE Routine 10/28/2024 3:15 PM EDT Type 2 diabetes mellitus with diabetic polyneuropathy, with long-term current use of insulin ([facility]) XR FEMUR 2+ VIEWS LEFT Routine 3:07 PM EDT Left hip pain XR HIP 2 OR 3 VIEWS LEFT Routine 10/28/2024 3:04 PM EDT Left hip pain PROPHYLAXIS - ADULT Routine 06/14/2024 3 :00 PM EST PANORAMIC RADIOGRAPHIC IMAGE Routine 06/14/2024 3:00 PM EST BITEWINGS - 4 RADIOGRAPHIC IMAGES Routine 06/14/2024 3:00 PM EST BI MAMMOGRAM SCREENING TOMOSYNTHESIS BILATERAL Routine 05/24/2024 2:30 PM EST LIPID PANEL WITH REFLEX TO DIRECT LDL Routine 12/25/2023 8:22 AM EDT Type 2 diabetes mellitus with diabetic polyneuropathy, with long-term current use of insulin ([facility]) ALBUMIN, RANDOM URINE W/CREATININE Routine 12/25/2023 8:16 AM EDT Type 2 diabetes mellitus with diabetic polyneuropathy, with long-term current use of insulin ([facility]) PERIODIC ORAL EVALUATION - ESTABLISHED PATIENT Routine 06/13/2023 1:00 PM EST HPV MRNA E6/E7 REFLEX TO HPV 16, 18/45 Routine 05/26/2023 11:20 AM EST PAP SMEAR Routine 05/26/2023 11:20 AM EST Cervical cancer screening HM COLONOSCOPY Routine 01/22/2019 from Last 3 Months or Most Recently Relevant to Health Maintenance Results * POCT HGB A1C (10/28/2024 3:23 PM EDT) Hemoglobin A1C 5.5 4.0 - 6.0 % QC Media Lot # [id number] Lot# Expiration Date Blood 10/28/2024 3:23 PM EDT Tam Griggs MD POINT OF CARE TEST EN TER/EDIT ORDERABLES Final Result * POCT Glucose (10/28/2024 3:15 PM EDT) Glucose Blood, POC 109 60 - 200 mg/dL QC Media Lot # [id number] Lot# Expiration Date Blood Capillary blood specimen / Unknown 10/28/2024 3:15 PM EDT Tam Griggs MD POINT OF CARE TEST EN TER/EDIT ORDERABLES Final Result * XR Femur 2+ Views Left (10/28/2024 3:07 PM EDT) Anatomical Region Laterality Modality Lower Extremities, Femur Left Radiogr aphic Imaging 10/28/2024 3:07 PM EDT Narrative 10/28/2024 4:20 PM EDT [address] [address] XRay Report Signed Patient: Lizett Sapp MR#: [id number] [birth year] : 1955 Acct:[id number] Age/Sex: 69 / F ADM Date: 10/28/24 Loc: HO.HHCX Attending Dr: Tam Lynch MD Ordering Physician: Tam Lynch MD Date of Service: 10/28/24 Procedure(s): XR femur LT 2V Accession Number(s): [id number] cc: Tam Lynch MD EXAMINATION: XR FEMUR, LEFT CLINICAL INFORMATION: left hip and left thigh pain COMPARISON: None available. TECHNIQUE: AP and lateral views of the left femur were obtained. FINDINGS: Proximal femur was imaged on same day hip x-ray. No fracture or acute deformity is evident. There is moderate vascular calcification in the femoral and popliteal artery. Stippled calcific density is present in the soft tissues posterior to the femoral condyles, likely within a gastrocnemius tendon. There is also chondrocalcinosis in the medial and lateral meniscus. 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 Electronically signed by: Pipe Salinas MD 10/28/2024 04:16 PM EDT RP Dictated By: Pipe Salinas MD Signed By: <Electronically signed by Pipe Salinas MD in OV> 10/28/24 1616 DD/ 1507 TD/TT: 10/28/24 1557 Materials Management Manager: Procedure Note Donotuseinterpreter, Image - 10/28/[address] [address] XRay Report Signed Patient: Aylin Sapp#: [id number] 67 : 1955cct:[id number] Age/Sex: 69 / FADM Date: 10/28/24 Loc: HO.HHCX Attending Dr: Tam Lynch MD Ordering Physician: Tam Lynch MD Date of Service: 10/28/24 Procedure(s): XR femur LT 2V Accession Number(s): [id number] cc: Tam Lynch MD EXAMINATION: XR FEMUR, LEFT CLINICAL INFORMATION: left hip and left thigh pain COMPARISON: None available. TECHNIQUE: AP and lateral views of the left femur were obtained. FINDINGS: Proximal femur was imaged on same day hip x-ray. No fracture or acute deformity is evident. There is moderate vascular calcification in the femoral and popliteal artery. Stippled calcific density is present in the soft tissues posterior to the femoral condyles, likely within a gastrocnemius tendon. There is also chondrocalcinosis in the medial and lateral meniscus. 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 Electronically signed by: Pipe Salinas MD 10/28/2024 04:16 PM EDT Dictated By: Pipe Salinas MD Signed By: <Electronically signed by Pipe Salinas MD in OV> 10/28/24 1616 DD/ 1507 TD/TT: 10/28/24 1557 Materials Management Manager: us Tam Griggs MD IMG XR PROCEDURES Fin al Result * XR Hip 2 or 3 Views Left (10/28/2024 3:04 PM EDT) Anatomical Region Laterality Modality Lower Extremities, Hip Left Radiograp hic Imaging 10/28/2024 3:04 PM EDT Narrative 10/28/2024 4:17 PM EDT [address] [address] XRay Report Signed Patient: Lizett Sapp MR#: [id number] [birth year] : 1955 Acct:[id number] Age/Sex: 69 / F ADM Date: 10/28/24 Loc: HO.HHCX Attending Dr: Tam Lynch MD Ordering Physician: Tam Lynch MD Date of Service: 10/28/24 Procedure(s): XR hip LT min 2V Accession Number(s): [id number] cc: Tam Lynch MD EXAMINATION: XR HIP, LEFT CLINICAL INFORMATION: left hip pain COMPARISON: None available. TECHNIQUE: Two views of the left hip. FINDINGS: No fracture, dislocation, or suspicious bone lesion. Normal bone mineralization. Normal alignment. Joint spaces are preserved. Mild degenerative arthritis. Soft tissues demonstrate vascular calcifications but are otherwise normal. XR/XR hip LT min 2V IMPRESSION: 1. No acute abnormality of the left hip. Electronically signed by: Sam Salter MD 10/28/2024 04:14 PM EDT RP Dictated By: Sam Salter MD Signed By: <Electronically signed by Sam Salter MD in OV> 10/28/24 161 DD/ 150 TD/TT: 10/28/24 1557 Materials Management Manager: Procedure Note Donotuseinterpreter, Image - 10/28/[address] [address] XRay Report Signed Patient: Lizett SappMR#: [id number] 67 : 1955cct:[id number] Age/Sex: 69 / FADM Date: 10/28/24 Loc: HO.HHCX Attending Dr: Tam Lynch MD Ordering Physician: Tam Lynch MD Date of Service: 10/28/24 Procedure(s): XR hip LT min 2V Accession Number(s): [id number] cc: Tam Lynch MD EXAMINATION: XR HIP, LEFT CLINICAL INFORMATION: left hip pain COMPARISON: None available. TECHNIQUE: Two views of the left hip. FINDINGS: No fracture, dislocation, or suspicious bone lesion. Normal bone mineralization. Normal alignment. Joint spaces are preserved. Mild degenerative arthritis. Soft tissues demonstrate vascular calcifications but are otherwise normal. XR/XR hip LT min 2V IMPRESSION: 1. No acute abnormality of the left hip. Electronically signed by: Sam Salter MD 10/28/2024 04:14 PM EDT RP Dictated By: Sam Salter MD Signed By: <Electronically signed by Sam Salter MD in OV> 10/28/24 161 DD/ 1504 TD/TT: 10/28/24 155 Materials Management Manager: us Tam Griggs MD IMG XR PROCEDURES Fin al Result * BI Mammogram Screening Tomosynthesis Bilateral (05/24/2024 2:30 PM EST) Anatomical Region Laterality Modality Breast Bilateral Mammography 05/24/2024 2:30 PM EST Narrative 06/01/2024 3:07 PM EST [facility] [address] [place], [place] [address] Mammography Report Signed Patient: Lizett Sapp MR#: [id number] 67 : 1955 Acct:[id number] Age/Sex: 69 / F ADM Date: 05/24/24 Loc: HO.MAMMO Attending Dr: aTm Lynch MD Ordering Physician: Tam Lynch MD Resu lts: 1Negative Date of Service: 05/24/24 Follow Up: 1 Year From Orig inal Mammogram Procedure(s): MM tomosynthesis screening BI Accession Number(s): [id number] cc: Tam Lynch MD EXAMINATION: MM SCREENING [...] by: Mounika Beverly DO 06/01/2024 03:04 PM EST Dictated By: Mounika Beverly DO Signed By: <Electronically signed by Mounika Beverly DO in OV> 06/01/24 1504 DD/ 1430 TD/TT: 05/24/24 1437 Materials Management Manager: Procedure Note Donotuseinterpreter, Image - 06/01/2024 [facility] [address] [place] [address] Dr. Marie, [place] [address] Mammography Report Signed Patient: Lizett SappMR#: [id number] 67 : 1955cct:[id number] Age/Sex: 69 / FADM Date: 05/24/24 Loc: HO.MAMMO Attending Dr: Tam Lynch MD Ordering Physician: Tam Lynch MDResu lts: 1Negative Date of Service: 05/24/24Follow Up: 1 Year From Orig ina Mammogram Procedure(s): MM tomosynthesis screening BI Accession Number(s): [id number] cc: Tam Lynch MD EXAMINATION: MM SCREENING [...] by: Mounika Beverly DO 06/01/2024 03:04 PM [facility] Dictated By: Mounika Beverly DO Signed By: <Electronically signed by Mounika Beverly DO in OV> 06/01/24 1504 DD/ 1430 TD/TT: 05/24/24 1437 Materials Management Manager: us Tam Griggs MD IMG BI PROCEDURES Fin al Result * (ABNORMAL) Lipid Panel with Reflex to Direct LDL (12/25/2023 8:22 AM EDT) Triglycerides 180(H) <150 mg/dL [facility] Comment:Desirable Triglyceri de: less than 150 mg/dLBorderline High Triglyceride 150-199 mg/dLHigh Triglyceride: 200-499 mg/dLVery High Triglyceride: greater than or equal to 5OO mg/dL Cholesterol 124 <200 mg/dL [facility] Comment:Desirable Cholestero l: less than 200 mg/dLBorderline High Cholesterol: 200-239 mg/dLHigh Cholesterol: greater than 239 mg/dL LDL Cholesterol Calculated 47 <100 mg/dL [facility] Comment:Desirable LDL: less than 100 mg/dLNear Optimal/Above Optimal LDL: 110- 129 mg/dLBorderline High LDL: 130-159 mg/dLHigh LDL: 160-189 mg/dLVery High LDL: greater than or equal to 190 mg/dL HDL Cholesterol 41 >40 mg/dL [facility] Comment:Desirable HDL: great er than 40 mg/dL Note: This HDL assay may give artificially low results in patients with liver disease. Blood 12/25/2023 8:22 AM EDT 12/25/2023 8:24 AM EDT us Tam Griggs MD LAB BLOOD ORDERABLES Final Result [facility] [address] [place] [phone] * Albumin, Random Urine W/Creatinine (12/25/2023 8:16 AM EDT) Creatinine, Urine 147.56 mg/dL [facility] Microalbumin Urine 17.0 mg/L [facility] Microalbum Creatinine Ratio Ur 11.5 <30 ug/mg cr [facility] Comment:Albumin/Creatinine R atio Reference Ranges: Normal: < 30 ug/mg creatinine Microalbuminuria: 30 - 300 ug/mg creatinineClinical Albuminuria: > 300 ug/mg creatinine Urine (Urine, Random) 12/25/2023 8:16 AM EDT 12/25/2023 8:42 AM EDT Tam Griggs MD LAB URINE ORDERABLES Final Result [facility] [address] [place] [address] [phone] * HPV mRNA E6/E7 w/Reflex to HPV Genotypes 16, 18/45 (05/26/2023 11:20 AM EST) HPV nRNA E6/E7 Not Detected Not Detected [facility] Comment:Methodology: Transcr iption-Mediated AmplificationThis assay detects E6/E7 viral messenger RNA (mRNA) from 14high-risk HPV types (16,18,31,33,35,39,45,51,52,56,58,59,66,68).Cervical sources are required for HPV testing.If a vaginal source from a patient who has had atotal hysterectomy with removal of cervix wassubmitted, please contact the testing laboratoryfor alternative testing options.For additional information, please refer [email or web address]/faq/PBR394l3(This link if provided for information/educational purposes only.)THIS TEST WAS PERFORMED AT:[facility] [place] [phone] D DUQUE MD HPV mRNA E6/E7 [facility] HPV 16 RNA [facility] HPV 18/45 RNA [facility] 05/26/2023 11:2 0 AM EST 05/27/2023 9:30 AM EST us Alisa Rubio CNM LAB CYTOLOGY ORDERABLES F inal Result [facility] [address] [place] [phone] * Pap Smear (05/26/2023 11:20 AM EST) Swab Cervix uteri structure / Unknown 05/26/2023 11:20 AM EST 05/27/2023 9:30 AM EST [facility] - 06/05/2023 9:34 AM EST ----- ------- Name: Lizett Sapp Age/Sex: 68/F : 1955 Unit#: [id number] Attend Dr: Re05/26/23 Status: PRE [facility] Location: [facility] Disch: ----- ------- SPEC : [id number] RECD: 05/27/23 STATUS: UMESH CLEARYBoni NUM: [id number] VENKAT: 05/26/23-[address] [facility] [address]: ALISA RUBIO [facility] ENTERED: 05/27/23-1103 SP TYPE: Pap Smr [facility] DR: ORDERED: Pap Smear Interpretation Satisfactory for evaluation. Atrophic. Negative for intraepithelial lesion or malignancy. HPV mRNA E6/E7: NOT DETECTED This assay detects E6/E7 viral messenger RNA (mRNA) from 14 high-risk HPV types (16, 18, 31, 33, 35, 39, 45, 51, 52, 56, 58, 59, 66, 68) HPV testing performed by [employer], [place], [place]. See reference laboratory portion of the EMR for entire report. Clinical Information LMP: Postmenopausal Previous PAP test: Unknown date/findings Material Received ThinPrep-Cervical ----- ------- Signed (signature on file) DAKSHA Perez ([facility]) 06/05/23 0934 ----- ------- END OF REPORT Alisa [facility] CYTOLOGY ORDERABLES F inal Result [facility] [address] [place] [phone] * Colonoscopy (01/22/2019) Colonoscopy Normal Dr Mock Historical Provider HEALTH MAINTENANCE Final Result from Last 3 Months or Most Recently Relevant to Health Maintenance [place] [address] [place] [address] [place] [phone] [facility] STAND ADULT Care Teams Hospital Food Service Worker Relationship Specialty Start Date End Date Tam Rosales MD [address] [place] [phone] PCP - General Internal Medicine 12/07/13
--- OUTSIDE RECORDS SUMMARY | 2025-01-20 12:26 | XMS_ITS | Encounter Summary ---
Author Organization [employer] Address [address] [place] [address] Care Team Providers Care Steel Detailer Name Role Phone Tam Rosales MD Primary Care Provide r Encounter Details Date Type Department Care Team (Latest Contact Info) Description 07/03/2020 Abstract [facility] CONVERSIONS Dental, Provider, DDS Social History Tobacco [...] Upcoming Encounters Date Type Department Care Team ( st Contact Info) Description 01/27/2025 2:00 PM EDT Office Visit [facility] MEDICINE [address], [place] [phone] Tam Rosales MD [address], [place] [phone] documented as of this encounter Visit Diagnoses Not on filedocumented in this encounter Care Teams Steel Detailer Relationship Specialty Start Date End Date Tam Rosales MD [address], [place] [phone] PCP - General Internal Medicine 12/07/13 documented as of this encounter
--- OUTSIDE RECORDS SUMMARY | 2025-01-20 12:26 | XMS_ITS | Encounter Summary ---
Author Organization [facility] Address [address] [place] [phone] Phone Care Team Providers Care Crepe Maker Name Role Phone Tam Lynch MD Primary Care Provide r Encounter Details Date Type Department Care Team (Late st Contact Info) Description 04/05/[address] [facility] [address] [place] [address] Tam Lynch MD [address] [facility] [address] [place] [phone] [email or web address] Social History Tobacco Use Types Packs/Day Years Used Date Smoking Tobacco: Former Cigarettes 0.3 1 Smokeless Tobacco: Never Alcohol Use Standard Drinks/Week Comments Yes 0 (1 standard drink = 0.6 oz pur e alcohol) social Comments Unknown Sex and Gender Information Value Date Recorded Sex Assigned at Not on file Legal Sex Female 4:29 PM EDT Gender Identity Not on file Sexual Orientation Not on file documented as of this encounter Plan of Treatment Upcoming Encounters Date Type Department Care Team (Late st Contact Info) Description 04/06/2025 3:00 PM EST Office Visit [facility] [address] [place], [place] [phone] Damian Hardin DO [address] [place] [address] documented as of this encounter Visit Diagnoses Not on filedocumented in this encounter Care Teams Crepe Maker Relationship Specialty Start Date End Date Tam Lynch MD [address] [place] [address] [address] [place] [phone] [email or web address] PCP - General Internal Medicine 01/18/20 documented as of this encounter Additional Source Comments The information contained in this document represents components of the legal health record. It is not the complete legal health record.[facility]
--- OUTSIDE RECORDS SUMMARY | 2025-01-20 12:26 | XMS_ITS | Clinical Summary ---
Author Organization [facility] Address [address] [place] [id number] Phone Care Team Providers Care Pillar Man Name Role Phone Tam Lynch MD Primary Care Provide r Allergies Active Allergy Reactions Criticality Noted Date Comments Gerry Inhibitors Cough Shellfish Containing Products 2021 Penicillins 11/18/2018 Medications metoprolol tartrate (LOPRESSOR) 50 MG tablet Take 50 mg by mouth 2 (two) times a day. Active sertraline (ZOLOFT) 100 MG tablet Take 100 mg by mouth daily. Active aspirin 81 MG EC tablet Take 81 mg by mouth daily. Active docosahexanoic acid/epa (FISH OIL ORAL) Take by mouth 3 (three) times a week on Friday, Friday, Friday. Active albuterol 90 mcg/actuation inhaler Inhale 2 puffs into the lungs every 6 (six) hours as needed for wheezing. Active nitroglycerin (NITROSTAT) 0.[address] 0.4 mg under the tongue every 5 (five) minutes as needed for chest pain. Active fluticasone propionate (FLONASE) 50 mcg/actuation nasal spray 2 sprays by Nasal route daily. Active valsartan (DIOVAN) 40 MG tablet Take 40 mg by mouth daily. Active clotrimazole (LOTRIMIN) 1 % cream Apply topically 2 (two) times a day. Active loratadine (CLARITIN) 10 mg tablet Take 10 mg by mouth daily. Active blood-glucose transmitter (DEXCOM G6 TRANSMITTER) DeviIndications: Type 2 diabetes mellitus with diabetic polyneuropathy, with long-term current use of insulin 1 application by Miscellaneous route daily. 1 Device 3 08/26/19 Active blood-glucose meter,continuous (DEXCOM G6 DATA LEAD) MiscIndications: Type 2 diabetes mellitus with diabetic polyneuropathy, with long-term current use of insulin by Miscellaneous route as needed. 1 each o 08/26/19 Active blood-glucose sensor (DEXCOM G6 SENSOR) DeviIndications: Type 2 diabetes mellitus with diabetic polyneuropathy, with long-term current use of insulin 1 application by Miscellaneous route daily. 3 Device 5 08/26/19 Active acetaminophen (TYLENOL) 650 MG CR tablet Take 650 mg by mouth every 8 (eight) hours as needed for pain (specific location in comments). Active alcohol PadMIndications: Type 2 diabetes mellitus with diabetic polyneuropathy, with long-term current use of insulin Apply topically 4 (four) times a day. 400 each 3 11/24/19 Active meloxicam (MOBIC) 15 MG tablet Take 15 mg by mouth every morning. 02/06/20 Active isosorbide mononitrate (IMDUR) 60 MG 24 hr tablet Take 1 tablet by mouth daily. 02/22/20 23 Active furosemide (LASIX) 20 MG tablet Take 1 tablet by mouth every morning. 02/06/20 Active cetirizine (ZYRTEC) 10 MG tablet Take 10 mg by mouth every morning. 02/25/20 Active amLODIPine (NORVASC) 5 MG tablet Take 1 tablet by mouth every morning. 02/19/20 Active omeprazole (PRILOSEC) 40 MG capsule Take 40 mg by mouth daily. 03/13/20 23 Active insulin pump cart,auto,BT-cnt r (OMNIPOD 5 G6 INTRO KIT, GEN 5,) CrtgIndications: Type 2 diabetes mellitus with diabetic polyneuropathy, with long-term current use of insulin Inject 1 kit under the skin daily. 1 each 08/13/19 24 Active sertraline (ZOLOFT) 50 MG tablet Take 50 mg by mouth daily. 07/31/19 Active FREESTYLE 28 gauge lancetsIndicatio ns:Type 2 diabetes mellitus with diabetic polyneuropathy, with long-term current use of insulin 1 each by Miscellaneous route daily. Dx E11.42, on insulin pump 100 each 1 08/27/19 24 Active FREESTYLE TEST Strp stripsIndication s:Type 2 diabetes mellitus with diabetic polyneuropathy, with long-term current use of insulin 1 each by Miscellaneous route daily. Dx E11.42, on insulin pump 100 strip 3 08/27/19 24 Active FREESTYLE LITE METER meter kitIndications:T ype 2 diabetes mellitus with diabetic polyneuropathy, with long-term current use of insulin To test blood glucose daily , dx E11.42 on insulin pump 1 each 08/27/19 24 Active insulin pen needles, disposable, 31 gauge x 5/16 NdleIndications: Type 2 diabetes mellitus with diabetic polyneuropathy, with long-term current use of insulin 1 each by Miscellaneous route once a week. 100 each 3 10/15/19 24 Active insulin lispro-aabc (LYUMJEV) 100 unit/mL injection vialIndications: Type 2 diabetes mellitus with diabetic polyneuropathy, with long-term current use of insulin Use up to 120 units daily via insulin pump 110 mL 1 04/22/20 24 Active insulin pump cart,auto,BT,G6/ 7 (OMNIPOD 5 G6-G7 PODS, GEN 5,) Crtg Inject 1 each under the skin every third day. 10 each 11 05/10/19 25 Active gabapentin (NEURONTIN) 300 MG capsuleIndicatio ns:Type 2 diabetes mellitus with diabetic polyneuropathy, with long-term current use of insulin Take 1 capsule (300 mg total) by mouth 2 (two) times a day. 180 capsule 2 08/20/19 25 Active ezetimibe (ZETIA) 10 mg tabletIndication s:Hyperlipidemia LDL goal <70 Take 1 tablet (10 mg total) by mouth daily. 90 tablet 2 12/10/19 25 Active metFORMIN (GLUCOPHAGE) 1000 MG tabletIndication s:Type 2 diabetes mellitus with diabetic polyneuropathy, with long-term current use of insulin Take 1 tablet (1,000 mg total) by mouth 2 (two) times a day with meals. 180 tablet 1 12/10/19 25 Active rosuvastatin (CRESTOR) 40 MG tabletIndication s:Hyperlipidemia LDL goal <70 Take 1 tablet (40 mg total) by mouth daily. 90 tablet 2 12/10/19 25 Active semaglutide (OZEMPIC) 1 mg/dose (4 mg/3 mL) subcutaneous injection penIndications:T ype 2 diabetes mellitus with diabetic polyneuropathy, with long-term current use of insulin Inject 1 mg under the skin once a week. 9 mL 12/10/19 Active Active Problems Problem Noted Date Diagnosed Date Insulin pump in place 08/28/2023 Assessment & Plan (06/08/2024 3:00 PM EST): She is using the omnipod 5 insulin pump and dexcom G7 CGM Assessment & Plan (08/28/2023 7:57 AM EDT): She is using the omnipod 5 insulin pump and dexcom G6 CGM Hypercalcemia 08/25/2020 Assessment & Plan (12/09/2024 4:32 PM EDT): Calcium level is elevated will check PTH level. Assessment & Plan (11/23/2020 4:01 PM EDT): Serum calcium repeated in the reference range intact PTH is in the normal reference range no further work-up. Assessment & Plan (08/25/2020 11:47 AM EDT): The patient has been having borderline hypercalcemia and today serum calcium levels were elevated. I will repeat comprehensive so that I can correct with albumin level and also check intact PTH levels to see if these are elevated. Type 2 diabetes mellitus wit h diabetic polyneuropathy, with long-term current use of insulin 11/18/2018 Assessment & Plan (12/09/2024 4:33 PM EDT): Fair control hemoglobin A1c 5.3% but she still having hypoglycemia at least 5%. It does appear that sometimes she is having hypoglycemia after bolusing in the middle of the day but some nights out of glucose are quite low. I do know if she is bolusing late in the night but at this point I will decrease the basal rate at 12 AM from 1.4 to 1.3 units. I will not make any other changes. She should continue Ozempic. Repeat hemoglobin A1c prior to the follow-up visit in 3 months. The patient has current severe hypoglycemia. There is significant concern hypoglycemic seizures which can be potentially fatal. I reemphasized to the patient that the use of insulin is high risk therapy that requires intensive monitoring for toxic effects (hypoglycemia, metabolic decompensation) due to the narrow therapeutic index of the medication and other factors (such as age, acute renal insufficiency, variable appetite and use of steroids) therefore close monitoring of blood sugar with regular review is paramount in the safe use of this medication. Assessment & Plan (08/19/2024 2:07 PM EDT): Average glucose was 116 mg/dL this is like a 5.7 hemoglobin A1c. But she is having a lot of lows still. 10% between 54 and 69 4% be low 54 mg/dL and the majority of the time it happens between 6 AM and 12 PM. Sometimes she has lows in the evening and this due to bolusing. I recalculated the bolus ratios and they seem to be good. But she is getting too much basal insulin 88% of the insulin is basal. So I have made the following changes from 7 to 12 AM I decreased the basal rate from 0.9 to 0.7 units/h. I changed the 12 PM to 12 AM and made 2 different time settings the new time setting is 12 PM to 6 PM and decrease the basal rate from 1.4 to 1.30 units/h. And from 6 PM to 12 AM I increased it from 1.4 to 1.5 units because at that point her glucose levels are elevated. I did not make any other changes and she should follow in 3 months time. The patient has current severe hypoglycemia. There is significant concern hypoglycemic seizures which can be potentially fatal. I reemphasized to the patient that the use of insulin is high risk therapy that requires intensive monitoring for toxic effects (hypoglycemia, metabolic decompensation) due to the narrow therapeutic index of the medication and other factors (such as age, acute renal insufficiency, variable appetite and use of steroids) therefore close monitoring of blood sugar with regular review is paramount in the safe use of this medication. Assessment & Plan (06/09/2024 11:34 AM EST): She brought in her new dexcom G7 sensor to be shown how to use the new sensor and link it to iesha omnipod 5 insulin pump. Her brought in a picture with her dexcom account user name and password. This allowed us to download the new dexcom G7 daniel and transfer the settings from her dexcom G6 daniel account. She stopped the dexcom G6 sensor. She placed a new dexcom G7 sensor without any issues. She likes having the G7 sensor being easier to place and faster to connect to the daniel. We waited for her sensor to connect her daniel. We worked on changing her sensor in her omnipod 5 PDM from the G6 to the G7. She stopped the omnipod 5 pod because it cannot switch mid pod life between the sensors. She will go home and put a new pod on. The PDM searched for the sensor data but was not able connect. She came back to the office after the visit, the she was given a new sensor and this was able to connect to both the PDM and the daniel. Assessment & Plan (04/22/2024 2:34 PM EST): Controlled. Hemoglobin A1c 6.4%. 81% of the glucose are in range but she has 5% low range and 1% below 54 mg/dL. It is best not to have hypoglycemia. So I increased the carbohydrate ratio to 13 from 10 and increased the sensitivity to 55 from 52. I am also going to decrease the basal insulin throughout all times because she goes without eating and sometimes develops hypoglycemia. The patient has current severe hypoglycemia. There is significant concern hypoglycemic seizures which can be potentially fatal. I reemphasized to the patient that the use of insulin is high risk therapy that requires intensive monitoring for toxic effects (hypoglycemia, metabolic decompensation) due to the narrow therapeutic index of the medication and other factors (such as age, acute renal insufficiency, variable appetite and use of steroids) therefore close monitoring of blood sugar with regular review is paramount in the safe use of this medication. She should repeat hemoglobin A1c prior to the follow-up visit in 3 months. Assessment & Plan (01/19/2024 2:23 PM EDT): Controlled. Hemoglobin A1c 6.0% continue current regimen. The patient states that sometimes she boluses and does not finish the meal so this can result in hypoglycemia. I suggested that maybe she use half the bolus dose to prevent hypoglycemia in the future. The only problem would be if she completes the whole meal then she probably will not get all the insulin required. She also has concerns because she is traveling to [place] and if she has [facility]. She states that there was given a hard time regarding supplies. I suggested that when she comes back from [place] we can try to transition her to reliable DME. Assessment & Plan (10/15/2023 1:58 PM EDT): Controlled. Hemoglobin A1c 6.6% 73% of the glucose in target she occasionally has rare hypoglycemia. I am stopping Trulicity and prescribing Ozempic. If she continues to have low I can potentially decrease the Ozempic to 0.5 mg. She will follow in 3 months time. I am not can make any other changes. I instructed the patient on using the Ozempic pen. Assessment & Plan (08/28/2023 8:05 AM EDT): She brought in her omnipod and her omnipod 5 supplies. She worked with her son to be able to get her omnipod and glooko account set up prior to this visit. With having her account information was able to log into her omnipod 5 pdm without any issues. Transferred her settings from her current omnipod to the new omnipod. Once the settings were entered, she was able to walk through setting up her pod without any issues. She placed and started the pod without any issues, normally her would do this for her. After the pod was working set up her dexcom. She had been using her dexcom G6 die equipment operator but she had thrown out her previous transmitter and this was still connected to the die equipment operator and I was not able to swap the transmitter. We then set up the dexcom G6 daniel on her phone. Once this was on her phone she walked through the set up without any issues. After the phone daniel was set up linked her next dexcom G6 transmitter to her omnipod 5 pdm. Reviewed the menus in the new PDM, was able to switch the text into Bahamian for her. She feels this will be better for her. She is overwhelmed slightly with everything this new pump can do but she feels in time it will get easier. To call or message with any issues or concerns Assessment & Plan (08/13/2023 2:28 PM EDT): Controlled based on last A1c of 6.8%. She has postprandial hyperglycemia in the evening. She still states that she has hypoglycemia but the hypoglycemia is very rare. She needs to do better adjustments for the evening glucose levels. As for the OmniPod 5 she needs still control her. It will not work with her old one. I sent a prescription to [facility]. She is going to have to schedule again so that I can set up her device because she states that she is not very good at it. Her Yoruba is not the best. Assessment & Plan (07/16/2023 1:32 PM EDT): Uncontrolled. She has a very good hemoglobin A1c of 6.8% but only 56% in range. She needs to be at 70% in range. The problems now is to hyperglycemia in the evening. Now she was not able to get the Trulicity and only use Bydureon once. Maybe this is why. She wants to switch back to Trulicity. Previously was using 1.5 but the pharmacist told her that the 3.0 is available. So I have prescribed this so I am not can make any changes to her basal regimen because with the higher dose of Trulicity her glucose levels are going to drop again. She will follow-up in 3 months time. Assessment & Plan (04/16/2023 4:02 PM EST): Uncontrolled. Hemoglobin A1c 6.3% so she has an excellent hemoglobin A1c but she is continues to have hypoglycemia in the central supply manager. I am going to change the basal setting starting at 2 AM to 12 PM and make that 2 AM to 7 PM at 1.2 units/h and make a new time slot from 7 AM to 12 PM at 1.0 units/h so I am decreasing it by 0.2 units and hopefully this will prevent the hypoglycemia. However she does need to bolus in the evening for hyperglycemia.The patient has current severe hypoglycemia. There is significant concern hypoglycemic seizures which can be potentially fatal. I reemphasized to the patient that the use of insulin is high risk therapy that requires intensive monitoring for toxic effects (hypoglycemia, metabolic decompensation) due to the narrow therapeutic index of the medication and other factors (such as age, acute renal insufficiency, variable appetite and use of steroids) therefore close monitoring of blood sugar with regular review is paramount in the safe use of this medication. Assessment & Plan (03/03/2023 5:05 PM EDT): Uncontrolled. Hemoglobin A1c is quite good at 6.6% but she is having frequent hypoglycemia and she is hypoglycemic on the way out. I have to decrease the basal insulin. I changed her settings from 12 to 2 AM is: Stay at 1.5 units/h. From 2 AM to 12 PM I have decreased it to 1.20 units/h and she will remain at 1.5 units from 12 PM to 12 AM. For her surgical procedure she needs to stop Trulicity the week prior which is this coming . She needs to stop metformin on Friday since the surgery is on Friday. I will write instructions to do a temporary basal decreasing the basal rate by 50% 6 hours prior to the surgery and 2 to 3 hours postsurgical. The patient cannot see so she cannot make any changes on her pump but she really does not know how to make changes on her pump. I will write her instructions for her and if he cannot figure it out that they just going to have to take the pump of for the surgical procedure. It is possible that the patient may not have to do a decrease of temporary basal since we are stopping the Trulicity on and with stopping metformin it is possible that her glucose levels will be much higher and may just be able to continue on her current insulin settings. They will have to do this at least 6 hours before the onset of surgery. Unfortunately the patient is hypoglycemic, where her glucose was 49 mg/dL and she was completely asymptomatic but states that she knew that she was confused and later on. She was treated appropriately with glucose tablets.The patient has current severe hypoglycemia. There is significant concern hypoglycemic seizures which can be potentially fatal. I reemphasized to the patient that the use of insulin is high risk therapy that requires intensive monitoring for toxic effects (hypoglycemia, metabolic decompensation) due to the narrow therapeutic index of the medication and other factors (such as age, acute renal insufficiency, variable appetite and use of steroids) therefore close monitoring of blood sugar with regular review is paramount in the safe use of this medication. Assessment & Plan (10/09/2022 4:04 PM EDT): Controlled. Hemoglobin A1c 6.4%. This has a low glucose starting anywhere from 3 am to 7 AM. So I am going to change the basal settings. I will add a new basal setting at 3 AM at 1.4 units/h and this will last until 8 AM. However she has elevated glucose in the evening. She is snacking after 9 PM and she states that she is bolusing yet her glucose are going higher. So I think we need to change either the carbohydrate ratio or sensitivity. However before I could even make these changes she informs me that she does not count her carbohydrates many of the evenings so she is just bolusing without counting carbohydrates and this is not proper. This is why she is having elevated postprandial glucose in the evening. I told her that if she eats in the evening she needs to count the carbohydrates otherwise she is going to have postprandial hyperglycemia. Assessment & Plan (06/24/2022 4:18 PM EST): Fair control hemoglobin A1c down to 7.0%. She is having postprandial hyperglycemia 9 PM and sometimes around dinner. I decreased the sensitivity from 60-52. The carbohydrate ratio seems to be appropriate based on her total daily dose of insulin. She is now using more basal insulin than bolus so she really needs to bolus for the postprandial hyperglycemia. She is having tarun tea at 9 PM without sugars but this is somehow another causing her to have high glucose levels. I told her to bolus for 10 g of carbohydrates at 9 PM when she has her tarun tea to see if it will improve her glucose levels. She has rare hypoglycemic episodes so I am not decreasing the basal rates. She should continue her other medications she should return for follow-up in 3 months. Assessment & Plan (03/14/2022 4:44 PM EST): Uncontrolled. Hemoglobin A1c 7.7%. I increase the basal insulin from 1.1-1.5 and from 0.95-1.45 units per hour. I did not change the carbohydrate ratio or sensitivity she should continue Trulicity and metformin. If she continues to have elevated glucose levels I asked the patient to contact me after 2 weeks. At that point I will increase the Trulicity to 3.0 mg weekly but it may be difficult to obtain Trulicity at that high dose presently because of shortages. Assessment & Plan (11/21/2021 4:42 PM EDT): Based on the hemoglobin A1c it appears that she is controlled at 6.8%. This may be falsely low due to anemia so I am going to check a CBC just to make sure that the hemoglobin and hematocrit levels are not low. Based on the CGM she is not control her glucose levels are 177 mg/dL she has a very high standard deviation of 66 mg/dL and in fact only 53% of glucose are in target previously was 65% so she is not doing well. She has elevated glucose from 8 PM to close to 4 AM. She states that she eats dinner in the evening around 7 and has rice. But I noticed that she is entering best carbohydrate so maybe she is not counting her carbohydrates properly. She needs to make sure that she is counting the carbs correctly. I recalculated her carbohydrate ratio at 15 but currently this is set at 10 and that means that she is getting more bolus insulin for carbs so this is not the problem. I calculated the sensitivity at 61 currently she is set at 64 and I decreased it further to 60 so that she gets more insulin with glucose levels. But this will not help unless she is entering the correct grams of carbohydrates. So she needs to pay careful attention to that. She will follow-up in 3 months time she should repeat her hemoglobin A1c and a CBC prior to the follow-up visit. She should continue Trulicity and metformin. Assessment & Plan (05/28/2021 4:02 PM EST): Controlled. Hemoglobin A1c 6.9% I would not make any changes. Continue current regimen. Assessment & Plan (02/22/2021 1:43 PM EDT): Controlled. Hemoglobin A1c 6.9%. She wants to increase the Trulicity from 0.75- 1.5. She continues on Metformin. I will have to decrease the basal insulin on her insulin pump so that she does not develop hypoglycemia. I decreased the 7:48 AM from 1.1 to 1.0 units/h and from 8 AM to 12 AM from 0.9 to 0.8 units/h. She will follow up in 3 months time. Assessment & Plan (11/23/2020 4:41 PM EDT): Uncontrolled. Hemoglobin A1c increased from 6.7% to 8.0%. The patient states that she has been falling and has a lot of feces and her OmniPod was not working. She has not been bolusing appropriately. She states that there is still 3 more days of the same that she probably will not be back to normal anytime soon but lately she has OmniPod which is working. I told her that in the future she needs to carry extra thousand cases rejected but she really needs to work on bolusing every single time she eats because there is an obvious increase in the hemoglobin A1c due to poor glycemic control from not bolusing insulin. So I would not make any changes because I understand that she was not getting her insulin as she normally would. So we will continue the same regimen for now. She states that the Farxiga is bothering her is causing itching vaginal itch. I will stop it and I will prescribe Trulicity 0.75 mg weekly she has no history of pancreatitis or medullary thyroid carcinoma. I did inform her that this medication is associated with nausea, vomiting, diarrhea, constipation but appearing at the smallest dose. I will give her a sample of Trulicity Lot number [id number] expiration May 15, 2022 Assessment & Plan (08/25/2020 11:53 AM EDT): Controlled. Hemoglobin A1c 6.7% I would not make any changes to her regimen. Assessment & Plan (05/25/2020 11:53 AM EST): Fair control hemoglobin A1c is 7.2% I am noticing some low glucose levels. I suspect a lot of this is because she is not checking her glucose levels You her glucose levels are low. She is also does not really eat much for breakfast. And if she is skipping meals this can result in hypoglycemia. One evening she had a glucose level of 77 8 and bolus and it resulted in hypoglycemia the following day. At the same time she also has highs. I recalculate her carbohydrate ratio and sensitivity and these are okay. She is getting more basal insulin then bolus insulin. I do not see any pattern that I would make any adjustments so I asked her to please monitor her glucose levels more regularly and make sure that she has at least 3 meals a day. Patient informs me that she has difficulty with hunger. She would like to try a GLP-1 agonist. If I were to prescribe a GLP-1 agonist we have to stop the Farxiga and basically adjust all her insulin regimen around so at this point I think we should leave it for the next visit. Assessment & Plan (01/18/2020 11:46 AM EDT): Fair control hemoglobin A1c 7.4% I am not going to make any changes she occasionally has elevated glucose levels when she eats a high carbohydrate meal. This cannot be avoided. She will continue with Farxiga 5 mg metformin and insulin administration via the Omni pod. If she continues to increase in hemoglobin A1c we can always increase Farxiga to 10 mg daily. Assessment & Plan (10/11/2019 12:06 PM EDT): The patient is eating more due to the call with-19 pandemic sometimes she is not bolusing in the evening but even when she boluses she has elevated fasting glucose levels so I decided to increase her basal rate in the evening and made a new category from 12 AM to 8 AM at 1.1 units/h and from 8 AM to 12 AM it is going to be 0.9 units/h. And then change the carbohydrate ratio over the sensitivity. I reminded her to try to bolus with every meal. She will follow in 3 months time. Assessment & Plan (07/12/2019 12:17 PM EDT): Fair control with hemoglobin A1c of 7.3%. She continues to have elevated bedtime and fasting glucose levels because she is not bolusing for meals and snacks in the evening. She is resistant to monitoring her glucose levels. But she does not have to monitor her glucose levels she can bolus based on food intake and that would definitely benefit her. I showed the patient how to enter carbohydrates will follow monitoring glucose levels so she can bolus. The glucose levels would improve. At this point she should continue metformin and Farxiga I will see her in 3 months time. Assessment & Plan (04/12/2019 12:04 PM EST): I do not have a repeat A1c based on her last A1c that she reports of 7.4% she has fair control. She can actually do much better 1 of the problems is that she does not always bolus in the evening and this is why she was having elevated fasting glucose. And I can see for fact that 1 week she had elevated fasting glucose and the week prior to the visit she had normal glycemic levels because she was bolusing for her evening meals. So basically there is really no changes that I can make she just needs to improve her compliance. Assessment & Plan (02/22/2019 11:55 AM EDT): Uncontrolled. Now she has elevated fasting glucose levels. This is interesting because previously she was having hypoglycemia overnight. On the last visit I had decrease the basal rate overnight from 0.9 to 0.8 units/day also decrease the basal rate during the day and decreases sensitivity. 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 Adding change the carbohydrate ratio and sensitivity because if I were to change it would mean increase in it and that means he will get less insulin which would not make much sense because her bolus ratio is currently at 30% and we really want this to be close to 40%. Nevertheless the problem is in the morning that means she needs more basal overnight and I just went ahead and change this even though if she is going to make her basal ratio even higher. I did inform her that if she is eating at bedtime she needs to bolus because that may be the reason for elevations in glucose levels and she has admitted that she is been eating poorly lately but she states that she probably missed administration this which is not a lot and she has more frequent elevated fasting glucose levels. I will see if the current change improves her fasting glucose levels. Assessment & Plan (01/11/2019 11:36 AM EDT): Uncontrolled. We did not do a hemoglobin A1c because apparently she had one done at [facility] and we called to get this report we do not have it. But I will guide myself by her glycemic levels which she is been having a lot of lows at least 11% lows at the same time 31% highs. At the end of [place] she was having high glucose now she is having lows. She is even had some glucose levels of 44 overnight which is concerning some decreasing the basal rate from 12 AM to 8 AM to 0.8 units. And from 8 AM to 12 AM I am decreasing it to 0.9 units. I am also increasing the sensitivity to 64 but will maintain the carbohydrate ratio at 12. Hopefully this eliminates the low glucose levels although it may result in elevated glucose levels so she has to pay close attention to make sure that she is counting carbohydrates correctly. Assessment & Plan (11/18/2018 3:44 PM EDT): Uncontrolled. Today I did not get a hemoglobin A1c because she believes she had one done in September. I am awaiting results from [facility]. She has postprandial hyperglycemia. She should continue metformin 1000 twice a day and continue her current insulin regimen but she was doing quite well with an SGLT2 inhibitor in the past Invokana but she developed vaginal pruritus so I will prescribe Farxiga which has less of this effect. She will start with 5 mg daily. I will have her return for follow-up in 2 months. Hyperlipidemia LDL goal <70 11/18/2018 Assessment & Plan (12/09/2024 4:35 PM EDT): Controlled. LDL 52 mg/dL continue rosuvastatin and ezetimibe no changes required. Assessment & Plan (08/19/2024 2:13 PM EDT): Controlled. LDL is 53 mg/dL continue current regiment of ezetimibe and rosuvastatin. Assessment & Plan (04/22/2024 2:03 PM EST): Based on lab work done on 01/13/2024 LDL 53 mg lipid panel is controlled. She should continue rosuvastatin 40 mg no changes required. Assessment & Plan (01/19/2024 2:24 PM EDT): Controlled. LDL 53 mg/dL continue ezetimibe and rosuvastatin. Assessment & Plan (10/15/2023 1:20 PM EDT): Controlled. LDL 46 mg/dL on rosuvastatin 40 mg no changes required. Assessment & Plan (08/13/2023 2:16 PM EDT): Controlled. LDL 46 mg/dL continue Zetia and rosuvastatin 40 mg no changes. Assessment & Plan (07/16/2023 1:32 PM EDT): Controlled. LDL 46 mg/dL on ezetimibe and rosuvastatin 40 mg. No changes required. Assessment & Plan (04/16/2023 4:08 PM EST): Controlled. LDL 46 mg/dL on Zetia 10 mg and rosuvastatin 40 mg no changes required. Assessment & Plan (03/03/2023 5:03 PM EDT): Controlled. LDL 46, continue rosuvastatin no changes required. Assessment & Plan (10/09/2022 3:51 PM EDT): Controlled LDL 46 mg on rosuvastatin 40 mg no changes required. Assessment & Plan (06/24/2022 3:56 PM EST): Based on last lipid panel LDL was 52 mg/dL controlled continue use of rosuvastatin 40 mg no changes required. Assessment & Plan (03/14/2022 4:45 PM EST): It is a controlled LDL 52 mg/dL on rosuvastatin 40 and ezetimibe 10 mg. No changes required. Assessment & Plan (11/21/2021 4:26 PM EDT): Controlled, LDL 52 mg/dl, no changes. Continue Rosuvastatin 40 mg daily. Assessment & Plan (05/28/2021 4:02 PM EST): Controlled. LDL 52 mg/dL continue rosuvastatin 40 mg no changes. Assessment & Plan (02/22/2021 1:38 PM EDT): Controlled with ezetimibe and Crestor. She should repeat her lipid panel in 3 months time Assessment & Plan (11/23/2020 4:02 PM EDT): Controlled based on last LDL level of 54 mg/dL on rosuvastatin 40 mg no changes. Assessment & Plan (08/25/2020 11:46 AM EDT): Controlled LDL 54 mg/dL continue rosuvastatin 40 mg. Assessment & Plan (05/25/2020 11:47 AM EST): Last LDL 47 mg/dL which is controlled on ezetimibe and rosuvastatin. No changes. Assessment & Plan (10/11/2019 11:51 AM EDT): Controlled LDL is 50 mg/dL on rosuvastatin and Zetia no changes. Assessment & Plan (04/12/2019 12:05 PM EST): Do not have a lipid panel and I will request this. She is on a statin. Rosuvastatin and Zetia 10 mg daily Assessment & Plan (11/18/2018 3:42 PM EDT): The patient states that her cholesterol is controlled. I do not have any results. She should continue atorvastatin 40 mg daily. Essential hypertension 11/18/2018 Assessment & Plan (11/23/2020 4:02 PM EDT): Controlled on Diovan but urine microalbumin increased from 57-138 since the last visit. It could be a reflection of worsening glycemic control. Assessment & Plan (08/25/2020 11:46 AM EDT): Controlled but her urine microalbumin is elevated. She continues on valsartan. We will not make any changes will repeat urine microalbumin for the follow-up visit. Microalbumin has previously been within the reference range. Assessment & Plan (05/25/2020 11:47 AM EST): Controlled continue current medications. She does not have microalbuminuria. Assessment & Plan (10/11/2019 11:52 AM EDT): Controlled on current medications no changes. Urine microalbumin creatinine ratio is in the reference range Assessment & Plan (04/12/2019 12:04 PM EST): Controlled on current medications no changes. Assessment & Plan (11/18/2018 3:42 PM EDT): Controlled with Diovan. She may need urine microalbumin levels checked. I do not have any lab results and we requested at this from [facility]. Encounters Date Type Department Care Team Description 12/09/2024 3:20 PM EDT Office Visit [facility] [address] [place] [address] Damian Hardin DO Type 2 diabetes mellitus with diabetic polyneuropathy, with long-term current use of insulin (Primary Dx); Hyperlipidemia LDL goal <70; Insulin pump in place; Hypercalcemia 12/03/2024 8:57 AM EDT - 12/03/2024 11:59 PM EDT Hospital Encounter [facility] [address] [place] [address] Damian Hardin DO Discharge Disposition: Home or Self Care 11/09/2024 Telephone [facility] [address] [place] [address] Kecia Schumacher CMA DME Paperwork 11/08/2024 Refill [facility] [address] [place] [address] Damian Hardin DO Medication Refill from Last 3 Months Family History Medical History Relation Comments Diabetes Father Hypertension Father Diabetes Mother Heart disease Mother Hypertension Mother Relation Status Comments Father Mother Social History Tobacco Use Types Packs/Day Years Used Date Smoking Tobacco: Former Cigarettes 0.3 1 Smokeless Tobacco: Never Tobacco Cessation:Counseling Given: Not Answered Alcohol Use Standard Drinks/Week Comments Yes 0 (1 standard drink = 0.6 oz pur e alcohol) social Education Answer Date Recorded Are you interested in more education? Not on rey e 08/30/2022 Are you concerned about learning? Not on file 08/30/2022 No 08/30/2022 No 08/30/2022 Digital Access Answer Date Recorded No 09/28/2022 No 09/28/2022 Reliable internet access at home? Not on file 09/28/2022 Device with a working camera? Not on file Comments Unknown Sex and Gender Information Value Date Recorded Sex Assigned at Not on file Legal Sex Female 4:29 PM EDT Gender Identity Not on file Sexual Orientation Not on file Last Filed Vital Signs Vital Sign Reading Time Taken Comments Blood Pressure 124/62 12/09/2024 3:41 PM EDT Pulse 69 12/09/2024 3:41 PM EDT Temperature 36.6 C (97.8 F) 08/27/2023 1:38 PM EDT Respiratory Rate - - Oxygen Saturation 97% 12/09/2024 3:41 PM EDT Inhaled Oxygen Concentration - - Weight 70 kg (154 lb 6.4 oz) 12/09/2024 3:41 PM EDT Height 150.6 cm (4' 11.29 ) 12/09/2024 3:41 PM E DT Body Mass Index 30.88 12/09/2024 3:41 PM EDT Plan of Treatment Upcoming Encounters Date Type Department Care Team (Late st Contact Info) Description 04/06/2025 3:00 PM EST Office Visit [facility] [address] [place] [id number] Damian Hardin DO [address] [place] [id number] [email or web address] Health Maintenance Due Date Last Done Comments DEPRESSION SCREENING 1969 SMOKING Hx and SMOKELESS TOBACCO SCREENING 1970 HEPATITIS C SCREENING 1975 COLOGUARD 2002 COLONOSCOPY 2002 COLORECTAL CANCER SCREENING 2002 FIT TEST 2002 FOBT 2002 SIGMOIDOSCOPY 2002 VIRTUAL COLONOSCOPY 2002 ZOSTER VACCINES (1 of 2) 2007 PNEUMOCOCCAL VACCINES (50+ years) (2 of 2 - PCV) 03/02/2014 03/02/2013, 08/11/2001 RSV VACCINE (1 - Risk 60-74 years 1-dose series) 2017 DIABETIC EYE EXAM 11/18/2018 MAMMOGRAM 11/04/2024 11/04/2022, 0707/2022, 06/18/2019, Additional history exists INFLUENZA VACCINE (#1) 2024 , 03/02/2019, 02/10/2017 COVID-19 VACCINE ( season) 2025 HEMOGLOBIN A1C 06/05/2025 12/03/2024, 0610/2024, 07/29/2024, Additional history exists BLOOD PRESSURE 06/11/2025 12/09/2024 CREATININE LEVEL 12/03/2025 12/03/2024, 02/2024, 10/03/2022, Additional history exists POTASSIUM LEVEL 12/03/2025 12/03/2024, 01/03, 10/03/2022, Additional history exists Adult Td,Tdap Booster 08/01/2032 08/01/2022, 013 OSTEOPOROSIS SCREENING INITIAL (ONE-TIME) Completed 06/11/2023 HEPATITIS A VACCINES Aged Out No long er eligible based on patient's age to complete this topic HIB VACCINES Aged Out No longer eligi ble based on patient's age to complete this topic MENINGOCOCCAL VACCINES (ACWY) Aged Out No longer eligible based on patient's age to complete this topic MENINGOCOCCAL VACCINES (B) Aged Out N o longer eligible based on patient's age to complete this topic Medical Devices Not on file Procedures Procedure Name Priority Date/Time Associated Diagnosis Comments MICROALBUMIN/CREATIN INE RATIO, RANDOM URINE Routine 12/03/2024 9:46 AM EDT Type 2 diabetes mellitus with diabetic polyneuropathy, with long-term current use of insulin RENAL PANEL Routine 12/03/2024 9:28 AM EDT Type 2 diabetes mellitus with diabetic polyneuropathy, with long-term current use of insulin LIPID PANEL Routine 12/03/2024 9:28 AM EDT Type 2 diabetes mellitus with diabetic polyneuropathy, with long-term current use of insulin Hyperlipidemia LDL goal <70 HEMOGLOBIN A1C Routine 12/03/2024 9:28 AM EDT Type 2 diabetes mellitus with diabetic polyneuropathy, with long-term current use of insulin from Last 3 Months Results * Microalbumin/creatinine ratio, random urine (12/03/2024 9:46 AM EDT) URINE MICROALBUMIN 1.9 0 - 2.3 mg/dL [facility] URINE CREATININE 102 mg/dL [facility] MICROALB/CRE RATIO 18.6 0 - 20 mg/g Cre [facility] Urine (Urine) 12/03/2024 9:4 6 AM EDT 12/03/2024 9:48 AM EDT us Damian Hardin DO URINE ORDERABLES Final Result [address] [address] * (ABNORMAL) Renal panel (12/03/2024 9:28 AM EDT) SODIUM 143 133 - 146 mmol/L [facility] POTASSIUM 4.8 3.3 - 5.1 mmol/L [facility] Comment:Specimen slightly he molyzed, result may be falsely elevated. CHLORIDE 106 96 - 108 mmol/L [facility] CO2 27 21 - 35 mmol/L [facility] GLUCOSE 111(H) 70 - 99 mg/dL [facility] BUN 16 6 - 19 mg/dL [facility] CREATININE 0.50 0.5 - 1.5 mg/dL [facility] CALCIUM 10.5(H) 8.4 - 10.3 mg/dL [facility] PHOSPHORUS 3.3 2.7 - 4.5 mg/dL [facility] ALBUMIN 4.3 3.9 - 4.8 g/dL [facility] EGFR 103 >59 mL/min/1.7 3m2 [facility] Comment:Estimated glomerular filtration rate calculated using the CKD-EPI refit equation. ANION GAP 15 10 - 20 mmol/L [facility] Blood 12/03/2024 9:28 AM EDT 12/03/2024 9:37 AM EDT us Damian Hardin DO LAB BLOOD ORDERABLES Final Resul t Performing Organization Address City/[facility]/ZIP Co de Phone Number [address] [address] * Hemoglobin A1c (12/03/2024 9:28 AM EDT) HEMOGLOBIN A1C 5.3 4.3 - 5.8 % [facility] Blood 12/03/2024 9:28 AM EDT 12/03/2024 9:37 AM EDT us Damian Hardin LAB BLOOD ORDERABLES Final Resul t Performing Organization Address [facility] Co de Phone Number [address] [address] * (ABNORMAL) Lipid panel (12/03/2024 9:28 AM EDT) HDL 46 mg/dL [facility] Comment: Interpretation <40 mg/dL: Low HDL cholesterol (major risk factor for CHD) Greater than or equal to 60 mg/dL: High HDL cholesterol ( negative risk factor for CHD) HDL - cholesterol is affected by a number of factors, e.g. smoking, excerise, hormones, sex and age. CHOLESTEROL 113 0 - 240 mg/dL [facility] TRIGLYCERIDES 73 30 - 160 mg/dL [facility] LDL 52 50 - 129 mg/dL [facility] Comment: LDL levels in terms of risk for coronary heart disease: <100 mg/dL: Optimal 100-129 mg/dL: Near or above optimal 130-159 mg/dL: Borderline high 160-189 mg/dL: High >190 mg/dL: Very High CARDIAC RISK RATIO 2.5(L) 3.3 - 4.4 C [facility] Blood 12/03/2024 9:28 AM EDT 12/03/2024 9:37 AM EDT us Damian Hardin DO LAB BLOOD ORDERABLES Final Resul t Performing Organization Address [facility] Co de Phone Number [address] [address] from Last 3 Months Insurance [place] & [place] & [place] & [place] & [place] & B [facility] MEDICARE PART A & B Care Teams Pillar Man Relationship Specialty Start Date End Date Tam Lynch MD [address] [place] [address] [place] [id number] [email or web address] PCP - General Internal Medicine 01/18/20 Additional Source Comments The information contained in this document represents components of the legal health record. It is not the complete legal health record.[facility]
--- OUTSIDE RECORDS SUMMARY | 2025-01-20 12:26 | XMS_ITS | Encounter Summary ---
Author Organization [employer] Address [address] [place] [address] Care Team Providers Care [employer] Planners Name Role Phone Tam Rosales MD Primary Care Provide r Reason for Visit * Reason Onset Date Comments Pre-op 01/29/2023 Encounter Details Date Type Department Care Team ([facility] st Contact Info) Description 01/29/2023 Telephone [facility] MEDICINE [address] [place], [place] [phone] Tam Rosales MD [address] [place], [place] [phone] Pre-op Social History Tobacco Use Types Packs/Day [...] - 02/05/2023 1:06 PM EDT Tc from [facility] with [facility] returning call regarding Pre op, Jessica stated wend calling back please don'tpress any number just go directly to Appt line and request to speak with her directly. Jessica contact Number [phone] * Telephone Encounter - Becca Nicolas RN - 02/04/2023 11:43 AM EDT T[place] jessica [place] [phone] to schedule pre- op , No answer. LVM to call back on [phone]. * Telephone Encounter - Asia Lopez - 01/29/2023 1:42 PM EDT Tc [place] jessica [place] [facility] [place] pre[place] appointment Location: [facility] Procedure: right eye cataract surgery Date of Procedure: 03/10 Lab: no EKG: no Anesthesia: local Name of surgeon: Dr. Moustapha Arriaga documented in this encounter Plan of Treatment Upcoming Encounters Date Type Department Care Team (Late st Contact Info) Description 01/27/2025 2:00 PM EDT Office Visit [facility] [address] [place], [place] [phone] Tam Rosales MD [address] [place] [address] documented as of this encounter Visit Diagnoses Not on filedocumented in this encounter Additional Health Concerns Assessment Noted Time PHQ-9 Depression Total Score: 0 08/02/19 23 11:40 AM EDT documented as of this encounter Care Teams [employer] Relationship Specialty Start Date End Date Tam Rosales MD [address] [place] [address] PCP - General Internal Medicine 12/07/13 documented as of this encounter
--- OUTSIDE RECORDS SUMMARY | 2025-01-20 12:26 | XMS_ITS | Encounter Summary ---
Author Organization [employer] Address [address] [place] [address] Care Team Providers Care Hot Mill Operator Name Role Phone Tam Rosales MD Primary Care Provide r Encounter Details Date Type Department Care Team (Late st Contact Info) Description 09/12/2022 Abstract [facility] MEDICINE [address] [place] [address] Tam Rosales MD [address] [place], [place] [phone] Social History Tobacco Use Types Packs/Day Years [...] Description 01/27/2025 2:00 PM EDT Office Visit [facility] MEDICINE [address] [place] [address] Tam Rosales MD [address] [place] [address] documented as of this encounter Procedures Procedure Name Priority Date/Time Associated Diagnosis Comments COLONOSCOPY Routine 01/22/2019 documented in this encounter Results * Hm Colonoscopy (01/22/2019) Colonoscopy Normal Normal 01/22/2019 Елена Samara, Katlyn - 01/22/2019 9:21 AM EDT Recommended 10 year follow up ( per provider notes ) us Historical Provider [facility] Edited Result - Final documented in this encounter Visit Diagnoses Not on filedocumented in this encounter Additional Health Concerns Assessment Noted Time PHQ-9 Depression Total Score: 0 08/02/19 23 11:40 AM EDT documented as of this encounter Care Teams Hot Mill Operator Relationship Specialty Start Date End Date Tam Rosales MD [address] [place] [address] PCP - General Internal Medicine 12/07/13 documented as of this encounter
[2025-01-20 13:35] LABS: Anion Gap 10 (12-20); Blood Urea Nitrogen 22 mg/dL (9-16); Calcium 10.0 mg/dL (8.4-10.2); Carbon Dioxide 29 mmol/L (22-29); Chloride 109 mmol/L (96-108); Cholesterol 99 mg/dL (<200); Estimated Glomerular Filt Rate > 60; HDL Cholesterol 35 mg/dL (>40); Potassium 4.5 mmol/L (3.3-5.1); Sodium 143 mmol/L (135-145); Triglycerides 96 mg/dL (<150)
== END 2025-01-20 10:27 | disposition home or self-care (01) ==
LOC: HO.HHCL 10:26
PROVIDERS: PCP Internal Medicine; Visit Provider Internal Medicine
DX: I10 Essential (primary) hypertension (principal); E78.2 Mixed hyperlipidemia
CPT/HCPCS: 36415; 80048; 80061